=== PATIENT | male | born 1945 | race Caucasian/White ===

== ENCOUNTER 2017-09-20 07:47 | Inpatient (IN) ==
[~2017-09-20 07:47] MED LIST: CLINDAMYCIN INJ 50 ML IV ONE; CLINDAMYCIN INJ 600 MG in PREMIX 1 EACH IV ONE
[2017-09-20 08:22] LABS: Basophils % 0.4 % (0.0-0.8); Eosinophils # 0.2 10*3/uL (0.0-0.87); Eosinophils % 2.9 % (0.00-10.9); Hematocrit 25.5 VOL% (42.0-52.0); Immature Granulocytes % 0.5 %; Immature Granulocytes Absolute 0.03 #; Lymphocytes # 0.6 10*3/uL (1.4-4.0); Mean Corpuscular HGB Conc 31.4 GM/DL (32-36); Mean Corpuscular Hemoglobin 40 PG (27-34); Mean Corpuscular Volume 126.2 FL (87-102); Mean Platelet Volume 11.1 FL (9.6-12.0); Monocytes # 0.4 10*3/uL (0.11-0.8); Monocytes % 6.5 % (1.7-12.7); NRBC # 0.02 10*3/uL; Neutrophils # 4.4 10*3/uL (1.4-7.4); Neutrophils % 79.7 % (38.7-73.9); Platelet Count 148 T/CUMM (130-400); Red Blood Count 2.02 MC/CUMM (3.8-5.5); Red Cell Distribution Width 17.5 % (9.3-17.3); White Blood Count 5.5 T/CUMM (4-12)
[2017-09-20 08:31] LABS: PT Patient Result 10.6 SECS; Partial Thromboplastin Time 24.3 SECS (0-40)
[2017-09-20 08:41] LABS: Macrocytosis 1+; Ovalocytes Few; Platelet Estimate Adequate
[2017-09-20 08:43] LABS: Hypochromasia 1+
[2017-09-20 09:00] LABS: Albumin 3.4 G/DL (3.4-5.0); Bilirubin,Total 1.5 MG/DL (0.2-1.0); Calcium 8.4 MG/DL (8.5-10.1); Osmolality,Calculated 282.1 MOS/KG (273-304); Potassium 4.7 MMOL/L (3.5-5.1); Total Protein 6.1 G/DL (6.4-8.3)
[2017-09-20] MEDS ORDERED: LACTATED RINGERS 1,000 ML IV SCH (09:30)
[2017-09-20] MEDS ORDERED: BUPIVACAINE 0.25% 50 ML VIAL ONE (11:54)
[2017-09-20] MEDS ORDERED: PYRIDOSTIGMINE 60 MG TABLET PO ONE (12:00)
[2017-09-20] MEDS ORDERED: BUPIVACAINE 0.5% 50 ML VIAL ONE (12:29)
[2017-09-20] MEDS ORDERED: BENZOIN COMPOUND TINCTURE 58 ML BOTTLE TOP ONE (13:35)
[2017-09-20] MEDS ORDERED: ONDANSETRON 4 MG/2 ML VIAL IV PRN (14:12)
[2017-09-20] MEDS ORDERED: GLUCAGON 1 MG VIAL IM PRN (14:12)
[2017-09-20] MEDS ORDERED: DEXTROSE 50% 25 GM/50 ML VIAL IV PRN (14:12)
[2017-09-20] MEDS ORDERED: PROPOFOL 200 MG/20 ML VIAL IV ONE (14:23)
[2017-09-20] MEDS ORDERED: MIDAZOLAM 2 MG/2 ML VIAL ONE (14:23)
[2017-09-20] MEDS: INSULIN REGULAR 100 UNIT/ML SUBCUT SCH ×2 (18:17→21:11)
[2017-09-20] MEDS: PYRIDOSTIGMINE 60 MG TABLET PO SCH ×2 (18:45→21:11)
[2017-09-20] MEDS: oxyCODONE/ACETAMINOPHEN 5-325 MG TABLET PO PRN (18:48)
[2017-09-20] MEDS ORDERED: POTASSIUM CHLORIDE 8 MEQ CAPSULE PO SCH (21:00)
[2017-09-20] MEDS: GABAPENTIN 400 MG CAPSULE PO SCH (21:10)
[2017-09-20] MEDS: CARVEDILOL 6.25 MG TABLET PO SCH (21:10)
[2017-09-20] MEDS: hydrALAZINE 25 MG TABLET PO SCH (21:10)
[2017-09-20] MEDS: azaTHIOprine 50 MG TABLET PO SCH (21:10)
[2017-09-20] MEDS: POTASSIUM CHLORIDE 10 MEQ TABLET PO SCH (21:11)
[2017-09-20] MEDS: CLINDAMYCIN INJ 900 MG in PREMIX 1 EACH IV SCH (21:11)
[2017-09-20] MEDS: CIPROFLOXACIN 500 MG TABLET PO SCH (21:11)
[2017-09-20] MEDS: GLYCOPYRROLATE 1 MG TABLET PO SCH (21:12)
[2017-09-21] MEDS: CLINDAMYCIN INJ 900 MG in PREMIX 1 EACH IV SCH (04:38)
[2017-09-21 04:55] LABS: Albumin 2.8 G/DL (3.4-5.0); Bilirubin,Total 2.5 MG/DL (0.2-1.0); Calcium 7.9 MG/DL (8.5-10.1); Osmolality,Calculated 283.8 MOS/KG (273-304); Total Protein 5.1 G/DL (6.4-8.3)
[2017-09-21 07:07] LABS: Basophils % 0.4 % (0.0-0.8); Eosinophils # 0.2 10*3/uL (0.0-0.87); Eosinophils % 3.8 % (0.00-10.9); Hematocrit 21.7 VOL% (42.0-52.0); Immature Granulocytes % 0.7 %; Immature Granulocytes Absolute 0.03 #; Lymphocytes # 0.4 10*3/uL (1.4-4.0); Lymphocytes % 9.5 % (21.2-54.2); Mean Corpuscular HGB Conc 32.7 GM/DL (32-36); Mean Corpuscular Hemoglobin 41 PG (27-34); Mean Platelet Volume 11.5 FL (9.6-12.0); Monocytes # 0.3 10*3/uL (0.11-0.8); Monocytes % 6.4 % (1.7-12.7); Neutrophils # 3.6 10*3/uL (1.4-7.4); Neutrophils % 79.2 % (38.7-73.9); Platelet Count 127 T/CUMM (130-400); Red Blood Count 1.75 MC/CUMM (3.8-5.5); Red Cell Distribution Width 17.5 % (9.3-17.3); White Blood Count 4.5 T/CUMM (4-12)
[2017-09-21 07:09] LABS: Hemoglobin 7.1 GM/DL (14.0-18.0)
[2017-09-21 07:25] LABS: Elliptocytes Few; Giant Platelets Few; Hypochromasia 1+; Platelet Estimate Normal
[2017-09-21 07:26] LABS: Macrocytosis Slight
[2017-09-21] MEDS ORDERED: SODIUM CHLORIDE 0.9% 1,000 ML IV PRN (08:02)
[2017-09-21] MEDS: SODIUM CHLORIDE 0.9% 1,000 ML IV SCH (08:08)
[2017-09-21 08:10] LABS: INR 1.1; PT Patient Result 11.1 SECS; Partial Thromboplastin Time 25.1 SECS (0-40)
[2017-09-21 08:30] LABS: % Iron Saturation 19.6 % (18-50)
[2017-09-21] MEDS ORDERED: ZINC PO SCH (09:00)
[2017-09-21] MEDS ORDERED: COPPER PO SCH (09:00)
[2017-09-21] MEDS ORDERED: VIT E PO SCH (09:00)
[2017-09-21] MEDS ORDERED: VIT C PO SCH (09:00)
[2017-09-21] MEDS ORDERED: VIT A PO SCH (09:00)
[2017-09-21] MEDS ORDERED: ALBUTEROL/IPRATROPIUM 3 ML NEB RESP TX STA (09:15)
[2017-09-21] MEDS: INSULIN REGULAR 100 UNIT/ML SUBCUT SCH ×3 (09:48→21:50)
[2017-09-21] MEDS: MULTIVITAMIN (OCUVITE) TABLET PO SCH (10:33)
[2017-09-21] MEDS: hydrALAZINE 25 MG TABLET PO SCH ×2 (10:33→21:50)
[2017-09-21] MEDS: PANTOPRAZOLE 40 MG TABLET PO SCH (10:33)
[2017-09-21] MEDS: CIPROFLOXACIN 500 MG TABLET PO SCH ×2 (10:34→21:50)
[2017-09-21] MEDS: POTASSIUM CHLORIDE 10 MEQ TABLET PO SCH ×2 (10:34→21:50)
[2017-09-21] MEDS: ATORVASTATIN 10 MG TABLET PO SCH (10:34)
[2017-09-21] MEDS: PYRIDOSTIGMINE 60 MG TABLET PO SCH ×5 (10:35→21:50)
[2017-09-21] MEDS: GLYCOPYRROLATE 1 MG TABLET PO SCH ×2 (10:35→21:51)
[2017-09-21] MEDS: azaTHIOprine 50 MG TABLET PO SCH ×2 (10:35→21:50)
[2017-09-21] MEDS: predniSONE 5 MG TABLET PO SCH (10:35)
[2017-09-21] MEDS: CARVEDILOL 6.25 MG TABLET PO SCH ×2 (10:35→21:50)
[2017-09-21] MEDS: GABAPENTIN 400 MG CAPSULE PO SCH ×2 (10:36→21:50)
[2017-09-21] MEDS: BUMETANIDE 1 MG TABLET PO SCH (10:36)
[2017-09-21] MEDS: oxyCODONE/ACETAMINOPHEN 5-325 MG TABLET PO PRN ×2 (12:45→21:56)
[2017-09-21] MEDS: ALBUTEROL/IPRATROPIUM 3 ML NEB RESP TX SCH ×2 (14:25→21:08)
[2017-09-21] MEDS: HYDROmorphone 2 MG/1 ML VIAL IV PRN (17:36)
[2017-09-22 00:28] LABS: Hematocrit 24.8 VOL% (42.0-52.0); Hemoglobin 8.1 GM/DL (14.0-18.0)
[2017-09-22] MEDS: ALBUTEROL/IPRATROPIUM 3 ML NEB RESP TX SCH ×5 (01:27→20:42)
[2017-09-22 05:37] LABS: Basophils % 0.3 % (0.0-0.8); Eosinophils # 0.1 10*3/uL (0.0-0.87); Eosinophils % 2.6 % (0.00-10.9); Hematocrit 25.4 VOL% (42.0-52.0); Hemoglobin 8.1 GM/DL (14.0-18.0); Immature Granulocytes Absolute 0.04 #; Lymphocytes # 0.6 10*3/uL (1.4-4.0); Lymphocytes % 16.1 % (21.2-54.2); Mean Corpuscular HGB Conc 31.9 GM/DL (32-36); Mean Corpuscular Hemoglobin 37 PG (27-34); Mean Corpuscular Volume 116.5 FL (87-102); Mean Platelet Volume 11.5 FL (9.6-12.0); Monocytes # 0.2 10*3/uL (0.11-0.8); Monocytes % 5.7 % (1.7-12.7); Neutrophils # 2.9 10*3/uL (1.4-7.4); Neutrophils % 74.3 % (38.7-73.9); Platelet Count 107 T/CUMM (130-400); Red Blood Count 2.18 MC/CUMM (3.8-5.5); Red Cell Distribution Width 23.5 % (9.3-17.3); White Blood Count 3.8 T/CUMM (4-12)
[2017-09-22 06:04] LABS: Calcium 7.5 MG/DL (8.5-10.1); Magnesium 2.1 MG/DL (1.8-2.4); Osmolality,Calculated 285.7 MOS/KG (273-304); Potassium 3.8 MMOL/L (3.5-5.1)
[2017-09-22] MEDS: SODIUM CHLORIDE 0.9% 1,000 ML IV SCH (06:13)
[2017-09-22] MEDS: oxyCODONE/ACETAMINOPHEN 5-325 MG TABLET PO PRN ×2 (06:16→20:18)
[2017-09-22] MEDS: INSULIN REGULAR 100 UNIT/ML SUBCUT SCH ×4 (09:24→20:21)
[2017-09-22] MEDS: PYRIDOSTIGMINE 60 MG TABLET PO SCH ×4 (09:41→20:18)
[2017-09-22] MEDS: BUMETANIDE 1 MG TABLET PO SCH (09:41)
[2017-09-22] MEDS: CARVEDILOL 6.25 MG TABLET PO SCH ×2 (09:41→20:18)
[2017-09-22] MEDS: azaTHIOprine 50 MG TABLET PO SCH ×2 (09:41→20:18)
[2017-09-22] MEDS: CIPROFLOXACIN 500 MG TABLET PO SCH ×2 (09:42→20:18)
[2017-09-22] MEDS: GABAPENTIN 400 MG CAPSULE PO SCH ×2 (09:42→20:18)
[2017-09-22] MEDS: ATORVASTATIN 10 MG TABLET PO SCH (09:42)
[2017-09-22] MEDS: MULTIVITAMIN (OCUVITE) TABLET PO SCH (09:42)
[2017-09-22] MEDS: predniSONE 5 MG TABLET PO SCH (09:42)
[2017-09-22] MEDS: hydrALAZINE 25 MG TABLET PO SCH ×2 (09:42→20:18)
[2017-09-22] MEDS: PANTOPRAZOLE 40 MG TABLET PO SCH (09:42)
[2017-09-22] MEDS: POTASSIUM CHLORIDE 10 MEQ TABLET PO SCH ×2 (09:42→20:18)
[2017-09-22] MEDS: GLYCOPYRROLATE 1 MG TABLET PO SCH ×2 (09:42→20:18)
[2017-09-23] MEDS: HYDROmorphone 2 MG/1 ML VIAL IV PRN (01:54)
[2017-09-23] MEDS: ALBUTEROL/IPRATROPIUM 3 ML NEB RESP TX SCH ×2 (02:08→07:43)
[2017-09-23 05:13] LABS: Basophils % 0.3 % (0.0-0.8); Eosinophils # 0.2 10*3/uL (0.0-0.87); Eosinophils % 4.3 % (0.00-10.9); Hematocrit 25.4 VOL% (42.0-52.0); Hemoglobin 8.5 GM/DL (14.0-18.0); Immature Granulocytes % 0.9 %; Immature Granulocytes Absolute 0.03 #; Lymphocytes # 0.6 10*3/uL (1.4-4.0); Lymphocytes % 16.3 % (21.2-54.2); Mean Corpuscular HGB Conc 33.5 GM/DL (32-36); Mean Corpuscular Hemoglobin 38 PG (27-34); Mean Corpuscular Volume 113.4 FL (87-102); Mean Platelet Volume 11.5 FL (9.6-12.0); Monocytes # 0.2 10*3/uL (0.11-0.8); Monocytes % 5.1 % (1.7-12.7); NRBC # 0.02 10*3/uL; Neutrophils # 2.6 10*3/uL (1.4-7.4); Neutrophils % 73.1 % (38.7-73.9); Platelet Count 115 T/CUMM (130-400); Red Blood Count 2.24 MC/CUMM (3.8-5.5); Red Cell Distribution Width 22.3 % (9.3-17.3); White Blood Count 3.5 T/CUMM (4-12)
[2017-09-23 05:30] LABS: Calcium 7.7 MG/DL (8.5-10.1); Osmolality,Calculated 280.1 MOS/KG (273-304); Potassium 3.9 MMOL/L (3.5-5.1)
[2017-09-23 05:51] LABS: Macrocytosis 1+
[2017-09-23 05:52] LABS: Ovalocytes Few; Platelet Estimate Decreased
[2017-09-23] MEDS: INSULIN REGULAR 100 UNIT/ML SUBCUT SCH ×2 (08:12→11:06)
[2017-09-23] MEDS: MULTIVITAMIN (OCUVITE) TABLET PO SCH (08:42)
[2017-09-23] MEDS: PANTOPRAZOLE 40 MG TABLET PO SCH (08:42)
[2017-09-23] MEDS: ATORVASTATIN 10 MG TABLET PO SCH (08:42)
[2017-09-23] MEDS: hydrALAZINE 25 MG TABLET PO SCH (08:42)
[2017-09-23] MEDS: predniSONE 5 MG TABLET PO SCH (08:42)
[2017-09-23] MEDS: BUMETANIDE 1 MG TABLET PO SCH (08:42)
[2017-09-23] MEDS: GLYCOPYRROLATE 1 MG TABLET PO SCH (08:42)
[2017-09-23] MEDS: GABAPENTIN 400 MG CAPSULE PO SCH (08:42)
[2017-09-23] MEDS: azaTHIOprine 50 MG TABLET PO SCH (08:42)
[2017-09-23] MEDS: CARVEDILOL 6.25 MG TABLET PO SCH (08:43)
[2017-09-23] MEDS: PYRIDOSTIGMINE 60 MG TABLET PO SCH (08:43)
[2017-09-23] MEDS: CIPROFLOXACIN 500 MG TABLET PO SCH (08:43)
[2017-09-23] MEDS: POTASSIUM CHLORIDE 10 MEQ TABLET PO SCH (08:43)
[2017-09-23] MEDS ORDERED: CYANOCOBALAMIN 1000 MCG/1 ML VIAL IM SCH (09:00)
[2017-09-23] MEDS: oxyCODONE/ACETAMINOPHEN 5-325 MG TABLET PO PRN (09:11)
[2017-09-23 11:33] VITALS: BP 129/63
== END 2017-09-23 12:26 | disposition home health service (06) | DRG 570 ==
LOC: N.OR 07:47 → N.TELEN 07:47 → N.SDSINP 07:53 → N.TELEN 15:43
PROVIDERS: ADMIT Specialist; ATTEND Specialist

== ENCOUNTER 2017-09-28 14:07 | Inpatient (IN) ==
[2017-09-28] MEDS ORDERED: methylPREDNISolone SOD SUC 125 MG/2 ML VIAL IV STA (14:23)
[2017-09-28] MEDS ORDERED: PROPOFOL 1,000 MG/100 ML BOTTLE IV ONE (14:35)
[2017-09-28 14:36] LABS: Basophils % 0.3 % (0.0-0.8); Eosinophils % 0.2 % (0.00-10.9); Hemoglobin 11.4 GM/DL (14.0-18.0); Immature Granulocytes % 1.3 %; Immature Granulocytes Absolute 0.08 #; Lymphocytes # 0.6 10*3/uL (1.4-4.0); Lymphocytes % 9.6 % (21.2-54.2); Mean Corpuscular HGB Conc 31.7 GM/DL (32-36); Mean Corpuscular Hemoglobin 37 PG (27-34); Mean Platelet Volume 10.9 FL (9.6-12.0); Monocytes # 0.5 10*3/uL (0.11-0.8); Monocytes % 7.9 % (1.7-12.7); NRBC # 0.02 10*3/uL; Neutrophils % 80.7 % (38.7-73.9); Platelet Count 225 T/CUMM (130-400); Red Blood Count 3.05 MC/CUMM (3.8-5.5); Red Cell Distribution Width 20.8 % (9.3-17.3); White Blood Count 6.2 T/CUMM (4-12)
[2017-09-28] MEDS ORDERED: ETOMIDATE 20 MG/10 ML VIAL IV ONE (14:39)
[2017-09-28] MEDS ORDERED: ROCURONIUM 100 MG/10 ML VIAL IV ONE (14:40)
[2017-09-28] MEDS ORDERED: SODIUM CHLORIDE 0.9% 100 ML IV ONE (14:44)
[2017-09-28] MEDS ORDERED: DILTIAZEM 100 MG VIAL.ADD IV ONE (14:44)
[2017-09-28] MEDS: DILTIAZEM INJ 100 MG in SODIUM CHLORIDE 0.9% 100 ML IV SCH (15:00)
[2017-09-28] MEDS ORDERED: methylPREDNISolone SOD SUC 125 MG/2 ML VIAL ONE (15:01)
[2017-09-28 15:03] LABS: Albumin 3.7 G/DL (3.4-5.0); Bilirubin,Total 0.9 MG/DL (0.2-1.0); Calcium 8.5 MG/DL (8.5-10.1); Osmolality,Calculated 282.5 MOS/KG (273-304); Potassium 4.5 MMOL/L (3.5-5.1); Total Protein 6.7 G/DL (6.4-8.3); Troponin I Only 0.044 NG/ML (0.00-0.045)
[2017-09-28 15:10] LABS: ABG Base Excess -1.8 MMOL/L (-2.5-2.5); ABG Oxygen Saturation 99.6 % (95-100); ABG PCO2 57.6 MM HG (35-48); ABG PH 7.272 (7.35-7.45); ABG TCO2 27.7 MMOL/L (23-27)
[2017-09-28 15:12] LABS: ABG PO2 512.7 MM HG (80-95)
[2017-09-28 15:22] LABS: Lactic Acid 3.8 MMOL/L (0.4-2.0)
[2017-09-28 15:30] LABS: Apearance,Urine Slightly Hazy (Clear); Bacteria,Urine Occasional /HPF (Few); Bilirubin,Urine Negative (Negative); Blood, Urine Negative (Negative); Glucose,Urine (UA) 50 mg/dL (Negative); Hyaline Casts,Urine 4 /LPF (0-3); Ketones,Urine Negative (Negative); Mucus,Urine Few /LPF (Occasional); Nitrite,Urine Negative (Negative); Protein,Urine 100 MG/DL; RBC,Urine 5 /HPF (0-4); Squamous Epithelial Cell,Urine Occasional /HPF (0-10); Urine Color Yellow (Yellow); Urine Specific Gravity 1.013 (1.001-1.035); Urine Urobilinogen < 2.0 EU/DL (0.2-1.0); WBC,Urine 15 /HPF (0-6)
[2017-09-28] MEDS ORDERED: PROPOFOL 1,000 MG/100 ML BOTTLE IV SCH (15:30)
[2017-09-28] MEDS ORDERED: ETOMIDATE 20 MG/10 ML VIAL IV STA (15:37)
[2017-09-28] MEDS ORDERED: ROCURONIUM 100 MG/10 ML VIAL IV STA (15:37)
[2017-09-28 15:40] LABS: INR 1.2; PT Patient Result 12.5 SECS; Partial Thromboplastin Time 25.9 SECS (0-40)
[2017-09-28] MEDS ORDERED: ONDANSETRON 4 MG/2 ML VIAL IV PRN (15:43)
[2017-09-28] MEDS ORDERED: DILTIAZEM 50 MG/10 ML VIAL IV STA (15:43)
[2017-09-28] MEDS ORDERED: ACETAMINOPHEN 325 MG TABLET PO PRN (15:43)
[2017-09-28] MEDS ORDERED: ALBUTEROL/IPRATROPIUM 3 ML NEB RESP TX PRN (16:34)
[2017-09-28] MEDS ORDERED: ALBUTEROL 2.5 MG/3 ML NEB RESP TX PRN (16:34)
[2017-09-28] MEDS ORDERED: SODIUM CHLORIDE 0.9% 1,000 ML IV ONE (16:39)
[2017-09-28] MEDS ORDERED: MULTIVITAMIN (CENTRUM) TABLET PO PRN (16:44)
[2017-09-28] MEDS ORDERED: GLUCAGON 1 MG VIAL IM PRN (16:53)
[2017-09-28] MEDS ORDERED: DEXTROSE 50% 25 GM/50 ML VIAL IV PRN (16:53)
[2017-09-28] MEDS ORDERED: ENOXAPARIN 40 MG/0.4 ML SYRINGE SUBCUT SCH (17:00)
[2017-09-28] MEDS ORDERED: SODIUM HYPOCHLORITE 0.25% IRRIG 473 ML BOTTLE TOP SCH (17:00)
[2017-09-28] MEDS ORDERED: CHLORHEXIDINE 4% SOLN 118 ML BOTTLE TOP SCH (17:00)
[2017-09-28] MEDS: methylPREDNISolone SOD SUC 40 MG/1 ML VIAL IV SCH (17:17)
[2017-09-28 17:47] LABS: ABG Base Excess 1.3 MMOL/L (-2.5-2.5); ABG HCO3 25.6 MMOL/L (20-26); ABG PCO2 60.5 MM HG (35-48); ABG TCO2 26.9 MMOL/L (23-27)
[2017-09-28] MEDS: SODIUM CHLORIDE 0.9% 1,000 ML IV SCH (18:15)
[2017-09-28] MEDS: PROPOFOL 1,000 MG/100 ML BOTTLE IV SCH ×2 (18:15→22:49)
[2017-09-28] MEDS: PIPERACILLIN/TAZOBACTAM 3,375 MG in SODIUM CHLORIDE 0.9% 100 ML IV SCH (18:33)
[2017-09-28] MEDS: PYRIDOSTIGMINE 60 MG TABLET PO SCH ×2 (18:44→20:40)
[2017-09-28] MEDS: azaTHIOprine 50 MG TABLET PO SCH (20:39)
[2017-09-28] MEDS: CARVEDILOL 6.25 MG TABLET PO SCH (20:39)
[2017-09-28] MEDS: hydrALAZINE 25 MG TABLET PO SCH (20:39)
[2017-09-28] MEDS: DOCUSATE SODIUM 100 MG CAPSULE PO SCH (20:39)
[2017-09-28] MEDS: ATORVASTATIN 10 MG TABLET PO SCH (20:40)
[2017-09-28] MEDS: POTASSIUM CHLORIDE 8 MEQ CAPSULE PO SCH (20:40)
[2017-09-28] MEDS: GABAPENTIN 400 MG CAPSULE PO SCH (20:40)
[2017-09-28] MEDS: GLYCOPYRROLATE 1 MG TABLET PO SCH (20:44)
[2017-09-28] MEDS: oxyCODONE/ACETAMINOPHEN 5-325 MG TABLET PO PRN (20:45)
[2017-09-28] MEDS: INSULIN LISPRO 100 UNIT/ML SUBCUT SCH (21:10)
[2017-09-28] MEDS: VANCOMYCIN INJ 1,750 MG in SODIUM CHLORIDE 0.9% 500 ML IV SCH (21:27)
[2017-09-29] MEDS: methylPREDNISolone SOD SUC 40 MG/1 ML VIAL IV SCH ×3 (03:37→16:29)
[2017-09-29] MEDS: PIPERACILLIN/TAZOBACTAM 3,375 MG in SODIUM CHLORIDE 0.9% 100 ML IV SCH ×3 (03:37→16:52)
[2017-09-29] MEDS: SODIUM CHLORIDE 0.9% 1,000 ML IV SCH ×6 (03:38→21:03)
[2017-09-29 03:40] LABS: Allen Test Positive; Pt O2 Delivery Device Ventilator
[2017-09-29 03:41] LABS: ABG Base Excess 1.8 MMOL/L (-2.5-2.5); ABG HCO3 26.1 MMOL/L (20-26); ABG Oxygen Saturation 98.8 % (95-100); ABG PCO2 41.5 MM HG (35-48); ABG PH 7.414 (7.35-7.45); ABG TCO2 24.6 MMOL/L (23-27)
[2017-09-29] MEDS: PROPOFOL 1,000 MG/100 ML BOTTLE IV SCH ×2 (04:08→16:06)
[2017-09-29 04:41] LABS: Hematocrit 25.3 VOL% (42.0-52.0); Hemoglobin 8.3 GM/DL (14.0-18.0); Immature Granulocytes % 1.6 %; Immature Granulocytes Absolute 0.05 #; Lymphocytes # 0.2 10*3/uL (1.4-4.0); Lymphocytes % 5.6 % (21.2-54.2); Mean Corpuscular HGB Conc 32.8 GM/DL (32-36); Mean Corpuscular Hemoglobin 38 PG (27-34); Mean Corpuscular Volume 116.1 FL (87-102); Mean Platelet Volume 11.6 FL (9.6-12.0); Monocytes # 0.1 10*3/uL (0.11-0.8); Monocytes % 3.6 % (1.7-12.7); Neutrophils # 2.7 10*3/uL (1.4-7.4); Neutrophils % 89.2 % (38.7-73.9); Platelet Count 134 T/CUMM (130-400); Red Blood Count 2.18 MC/CUMM (3.8-5.5); Red Cell Distribution Width 20.9 % (9.3-17.3); White Blood Count 3.1 T/CUMM (4-12)
[2017-09-29 05:09] LABS: Giant Platelets Few; Hypochromasia 1+; Ovalocytes Slight; Platelet Estimate Normal
[2017-09-29 05:12] LABS: Albumin 2.8 G/DL (3.4-5.0); Bilirubin,Total 1.7 MG/DL (0.2-1.0); Calcium 7.6 MG/DL (8.5-10.1); Potassium 4.4 MMOL/L (3.5-5.1)
[2017-09-29] MEDS: INSULIN LISPRO 100 UNIT/ML SUBCUT SCH ×4 (07:33→18:23)
[2017-09-29] MEDS: hydrALAZINE 25 MG TABLET PO SCH ×2 (08:05→20:07)
[2017-09-29] MEDS: DOCUSATE SODIUM 100 MG CAPSULE PO SCH ×2 (08:06→20:07)
[2017-09-29] MEDS: CARVEDILOL 6.25 MG TABLET PO SCH ×2 (08:07→20:07)
[2017-09-29] MEDS: MULTIVITAMIN (OCUVITE) TABLET PO SCH (08:44)
[2017-09-29] MEDS: GLYCOPYRROLATE 1 MG TABLET PO SCH ×2 (08:44→20:07)
[2017-09-29] MEDS: RIVAROXABAN 20 MG TABLET PO SCH (08:44)
[2017-09-29] MEDS: azaTHIOprine 50 MG TABLET PO SCH ×2 (08:44→20:07)
[2017-09-29] MEDS: GABAPENTIN 400 MG CAPSULE PO SCH ×2 (08:44→20:07)
[2017-09-29] MEDS: POTASSIUM CHLORIDE 8 MEQ CAPSULE PO SCH ×2 (08:44→20:07)
[2017-09-29] MEDS: PANTOPRAZOLE 40 MG VIAL IV SCH (08:45)
[2017-09-29] MEDS: oxyCODONE/ACETAMINOPHEN 5-325 MG TABLET PO PRN ×3 (08:59→22:16)
[2017-09-29] MEDS ORDERED: PANTOPRAZOLE 40 MG TABLET PO SCH (09:00)
[2017-09-29] MEDS ORDERED: LIDOCAINE 1% 20 ML VIAL MISC INJ ONE (09:03)
[2017-09-29] MEDS ORDERED: MIDAZOLAM 2 MG/2 ML VIAL IV ONE (09:03)
[2017-09-29] MEDS ORDERED: LIDOCAINE 2% 20 ML VIAL RESP TX ONE (09:03)
[2017-09-29] MEDS: PYRIDOSTIGMINE 60 MG TABLET PO SCH ×5 (09:22→20:07)
[2017-09-29] MEDS: DEXMEDETOMIDINE 200 MCG in SODIUM CHLORIDE 0.9% 48 ML IV SCH ×2 (09:47→19:40)
[2017-09-29] MEDS: VANCOMYCIN INJ 1,750 MG in SODIUM CHLORIDE 0.9% 500 ML IV SCH ×2 (10:33→21:22)
[2017-09-29] MEDS: ACETIC ACID 0.25% IRRIGATION 1,000 ML BOTTLE IRRIG SCH ×2 (12:59→20:08)
[2017-09-29] MEDS: DILTIAZEM INJ 100 MG in SODIUM CHLORIDE 0.9% 100 ML IV SCH (15:00)
[2017-09-29] MEDS ORDERED: IMMUNE GLOBULIN 10% 40 GM, IMMUNE GLOBULIN 10% 5 GM in PREMIX 1 EACH IV ONE (17:39)
[2017-09-29] MEDS: ATORVASTATIN 10 MG TABLET PO SCH (20:07)
[2017-09-30] MEDS: methylPREDNISolone SOD SUC 40 MG/1 ML VIAL IV SCH ×3 (00:35→17:40)
[2017-09-30] MEDS: INSULIN LISPRO 100 UNIT/ML SUBCUT SCH ×4 (00:36→17:55)
[2017-09-30] MEDS: PIPERACILLIN/TAZOBACTAM 3,375 MG in SODIUM CHLORIDE 0.9% 100 ML IV SCH ×3 (00:36→17:40)
[2017-09-30] MEDS: SODIUM CHLORIDE 0.9% 1,000 ML IV SCH ×3 (01:33→08:39)
[2017-09-30] MEDS: DEXMEDETOMIDINE 200 MCG in SODIUM CHLORIDE 0.9% 48 ML IV SCH ×5 (02:22→23:21)
[2017-09-30 03:34] LABS: ABG Base Excess -1.6 MMOL/L (-2.5-2.5); ABG HCO3 23.8 MMOL/L (20-26); ABG Oxygen Saturation 97.6 % (95-100); ABG PCO2 43.2 MM HG (35-48); ABG PH 7.359 (7.35-7.45); ABG PO2 107.7 MM HG (80-95); ABG TCO2 25.1 MMOL/L (23-27); Allen Test Positive; Pt O2 Delivery Device Ventilator
[2017-09-30 05:12] LABS: Basophils % 0.3 % (0.0-0.8); Hematocrit 26.7 VOL% (42.0-52.0); Hemoglobin 8.6 GM/DL (14.0-18.0); Immature Granulocytes % 1.1 %; Immature Granulocytes Absolute 0.04 #; Lymphocytes # 0.2 10*3/uL (1.4-4.0); Lymphocytes % 4.5 % (21.2-54.2); Mean Corpuscular HGB Conc 32.2 GM/DL (32-36); Mean Corpuscular Hemoglobin 38 PG (27-34); Mean Corpuscular Volume 119.2 FL (87-102); Mean Platelet Volume 11.9 FL (9.6-12.0); Monocytes # 0.2 10*3/uL (0.11-0.8); Monocytes % 6.1 % (1.7-12.7); NRBC # 0.04 10*3/uL; Neutrophils # 3.2 10*3/uL (1.4-7.4); Platelet Count 134 T/CUMM (130-400); Red Blood Count 2.24 MC/CUMM (3.8-5.5); Red Cell Distribution Width 20.4 % (9.3-17.3); White Blood Count 3.6 T/CUMM (4-12)
[2017-09-30 05:41] LABS: Calcium 7.2 MG/DL (8.5-10.1); Magnesium 2.2 MG/DL (1.8-2.4); Osmolality,Calculated 287.4 MOS/KG (273-304); Potassium 4.5 MMOL/L (3.5-5.1)
[2017-09-30 05:42] LABS: Magnesium 2.2 MG/DL (1.8-2.4); Prealbumin 19.9 MG/DL (20-40)
[2017-09-30 05:52] LABS: Band Neutrophils 7 % (0-10); Hypochromasia 1+; Lymphocytes 1 % (20-55); Metamyelocytes 1 %; Segmented Neutrophils 86 % (50-85); Total Cells Counted 100
[2017-09-30 05:53] LABS: Macrocytosis 1+; Ovalocytes Few; Platelet Estimate Adequate; Tear Drop Cells Slight
[2017-09-30] MEDS: PROPOFOL 1,000 MG/100 ML BOTTLE IV SCH ×2 (08:40→16:11)
[2017-09-30] MEDS ORDERED: ASPIRIN EC 81 MG TABLET PO SCH (09:00)
[2017-09-30] MEDS: GLYCOPYRROLATE 1 MG TABLET PO SCH ×2 (09:05→20:05)
[2017-09-30] MEDS: MULTIVITAMIN (OCUVITE) TABLET PO SCH (09:05)
[2017-09-30] MEDS: POTASSIUM CHLORIDE 8 MEQ CAPSULE PO SCH ×2 (09:05→20:06)
[2017-09-30] MEDS: RIVAROXABAN 20 MG TABLET PO SCH (09:05)
[2017-09-30] MEDS: ACETIC ACID 0.25% IRRIGATION 1,000 ML BOTTLE IRRIG SCH ×2 (09:06→20:07)
[2017-09-30] MEDS: ASCORBIC ACID 500 MG TABLET PO SCH ×2 (09:06→20:08)
[2017-09-30] MEDS: PYRIDOSTIGMINE 60 MG TABLET PO SCH ×4 (09:06→20:06)
[2017-09-30] MEDS: ISOSORBIDE MONONITRATE 30 MG TABLET PO SCH (09:06)
[2017-09-30] MEDS: DOCUSATE SODIUM 100 MG CAPSULE PO SCH ×2 (09:06→20:06)
[2017-09-30] MEDS: GABAPENTIN 400 MG CAPSULE PO SCH ×2 (09:06→20:06)
[2017-09-30] MEDS: azaTHIOprine 50 MG TABLET PO SCH ×3 (09:06→21:14)
[2017-09-30] MEDS: LISINOPRIL 5 MG TABLET PO SCH (09:07)
[2017-09-30] MEDS: PANTOPRAZOLE 40 MG VIAL IV SCH (09:07)
[2017-09-30] MEDS: VANCOMYCIN INJ 1,750 MG in SODIUM CHLORIDE 0.9% 500 ML IV SCH (10:17)
[2017-09-30] MEDS: ATORVASTATIN 10 MG TABLET PO SCH (20:06)
[2017-10-01] MEDS: oxyCODONE/ACETAMINOPHEN 5-325 MG TABLET PO PRN ×2 (00:30→18:30)
[2017-10-01] MEDS: INSULIN LISPRO 100 UNIT/ML SUBCUT SCH ×5 (00:31→23:52)
[2017-10-01] MEDS: methylPREDNISolone SOD SUC 40 MG/1 ML VIAL IV SCH ×3 (00:31→17:30)
[2017-10-01] MEDS: PIPERACILLIN/TAZOBACTAM 3,375 MG in SODIUM CHLORIDE 0.9% 100 ML IV SCH ×3 (00:31→17:30)
[2017-10-01] MEDS: DEXMEDETOMIDINE 200 MCG in SODIUM CHLORIDE 0.9% 48 ML IV SCH ×6 (04:00→21:53)
[2017-10-01 04:03] LABS: ABG Base Excess -1.3 MMOL/L (-2.5-2.5); ABG HCO3 23.3 MMOL/L (20-26); ABG Oxygen Saturation 97.5 % (95-100); ABG PCO2 45.4 MM HG (35-48); ABG PH 7.343 (7.35-7.45); ABG PO2 97.8 MM HG (80-95); ABG TCO2 22.3 MMOL/L (23-27)
[2017-10-01] MEDS: VANCOMYCIN INJ 1,750 MG in SODIUM CHLORIDE 0.9% 500 ML IV SCH ×2 (04:08→22:24)
[2017-10-01 06:09] LABS: Hematocrit 27.3 VOL% (42.0-52.0); Hemoglobin 8.6 GM/DL (14.0-18.0); Immature Granulocytes % 1.4 %; Immature Granulocytes Absolute 0.04 #; Lymphocytes # 0.1 10*3/uL (1.4-4.0); Mean Corpuscular HGB Conc 31.5 GM/DL (32-36); Mean Corpuscular Hemoglobin 37 PG (27-34); Mean Corpuscular Volume 118.7 FL (87-102); Mean Platelet Volume 11.8 FL (9.6-12.0); Monocytes # 0.2 10*3/uL (0.11-0.8); Monocytes % 6.4 % (1.7-12.7); NRBC # 0.02 10*3/uL; Neutrophils # 2.5 10*3/uL (1.4-7.4); Neutrophils % 87.2 % (38.7-73.9); Platelet Count 133 T/CUMM (130-400); Red Cell Distribution Width 20.3 % (9.3-17.3); White Blood Count 2.8 T/CUMM (4-12)
[2017-10-01 06:39] LABS: Hypochromasia 2+; Lymphocytes 5 % (20-55); Macrocytosis 1+; Segmented Neutrophils 92 % (50-85); Target Cells Slight; Total Cells Counted 100
[2017-10-01 06:40] LABS: Platelet Estimate Decreased
[2017-10-01 06:46] LABS: Calcium 7.3 MG/DL (8.5-10.1); Magnesium 2.5 MG/DL (1.8-2.4); Osmolality,Calculated 287.4 MOS/KG (273-304); Potassium 4.7 MMOL/L (3.5-5.1)
[2017-10-01] MEDS: GLYCOPYRROLATE 1 MG TABLET PO SCH ×2 (08:09→21:46)
[2017-10-01] MEDS: MULTIVITAMIN (OCUVITE) TABLET PO SCH (08:09)
[2017-10-01] MEDS: POTASSIUM CHLORIDE 8 MEQ CAPSULE PO SCH ×2 (08:10→21:45)
[2017-10-01] MEDS: ASCORBIC ACID 500 MG TABLET PO SCH ×2 (08:10→21:45)
[2017-10-01] MEDS: azaTHIOprine 50 MG TABLET PO SCH ×2 (08:10→21:45)
[2017-10-01] MEDS: LISINOPRIL 5 MG TABLET PO SCH (08:10)
[2017-10-01] MEDS: RIVAROXABAN 20 MG TABLET PO SCH (08:11)
[2017-10-01] MEDS: PYRIDOSTIGMINE 60 MG TABLET PO SCH ×4 (08:11→21:45)
[2017-10-01] MEDS: GABAPENTIN 400 MG CAPSULE PO SCH ×2 (08:11→21:45)
[2017-10-01] MEDS: ISOSORBIDE MONONITRATE 30 MG TABLET PO SCH (08:12)
[2017-10-01] MEDS: PANTOPRAZOLE 40 MG VIAL IV SCH (08:12)
[2017-10-01] MEDS: CYANOCOBALAMIN 1000 MCG/1 ML VIAL IM SCH (08:19)
[2017-10-01] MEDS: DOCUSATE SODIUM 100 MG CAPSULE PO SCH (08:19)
[2017-10-01 08:39] LABS: ABG HCO3 22.6 MMOL/L (20-26); ABG PCO2 49.3 MM HG (35-48); ABG PH 7.308 (7.35-7.45); ABG PO2 60.7 MM HG (80-95); ABG TCO2 22.7 MMOL/L (23-27); Allen Test Positive; Pt O2 Delivery Device Ventilator
[2017-10-01] MEDS: ACETIC ACID 0.25% IRRIGATION 1,000 ML BOTTLE IRRIG SCH ×2 (11:18→21:50)
[2017-10-01] MEDS: ISOSORBIDE DINITRATE 20 MG TABLET PO SCH (21:44)
[2017-10-01] MEDS: ATORVASTATIN 10 MG TABLET PO SCH (21:45)
[2017-10-01] MEDS: DOCUSATE SODIUM 100 MG/10 ML UDCUP PO SCH (21:45)
[2017-10-02] MEDS: DEXMEDETOMIDINE 200 MCG in SODIUM CHLORIDE 0.9% 48 ML IV SCH ×7 (00:30→23:29)
[2017-10-02] MEDS: methylPREDNISolone SOD SUC 40 MG/1 ML VIAL IV SCH ×3 (02:10→17:16)
[2017-10-02] MEDS: PIPERACILLIN/TAZOBACTAM 3,375 MG in SODIUM CHLORIDE 0.9% 100 ML IV SCH ×3 (02:10→17:17)
[2017-10-02] MEDS: oxyCODONE/ACETAMINOPHEN 5-325 MG TABLET PO PRN ×2 (02:13→08:16)
[2017-10-02 02:54] LABS: ABG Base Excess -1.3 MMOL/L (-2.5-2.5); ABG HCO3 23.6 MMOL/L (20-26); ABG Oxygen Saturation 95.9 % (95-100); ABG PCO2 39.8 MM HG (35-48); ABG PO2 85.7 MM HG (80-95); ABG TCO2 24.8 MMOL/L (23-27); Allen Test Positive; Pt O2 Delivery Device Ventilator
[2017-10-02] MEDS: INSULIN LISPRO 100 UNIT/ML SUBCUT SCH ×3 (06:22→18:07)
[2017-10-02 06:36] LABS: Calcium 7.6 MG/DL (8.5-10.1); Magnesium 2.7 MG/DL (1.8-2.4); Osmolality,Calculated 288.4 MOS/KG (273-304)
[2017-10-02 07:17] LABS: Hematocrit 28.2 VOL% (42.0-52.0); Immature Granulocytes % 0.9 %; Immature Granulocytes Absolute 0.03 #; Lymphocytes # 0.2 10*3/uL (1.4-4.0); Mean Corpuscular HGB Conc 31.9 GM/DL (32-36); Mean Corpuscular Hemoglobin 38 PG (27-34); Mean Platelet Volume 11.9 FL (9.6-12.0); Monocytes # 0.2 10*3/uL (0.11-0.8); Monocytes % 5.7 % (1.7-12.7); NRBC # 0.03 10*3/uL; Neutrophils # 2.8 10*3/uL (1.4-7.4); Neutrophils % 88.4 % (38.7-73.9); Platelet Count 110 T/CUMM (130-400); Red Blood Count 2.37 MC/CUMM (3.8-5.5); Red Cell Distribution Width 20.1 % (9.3-17.3); White Blood Count 3.2 T/CUMM (4-12)
[2017-10-02 07:57] LABS: Band Neutrophils 2 % (0-10); Lymphocytes 6 % (20-55); Macrocytosis 1+; Nucleated Red Blood Cells 1 (0-5); Segmented Neutrophils 83 % (50-85); Total Cells Counted 100
[2017-10-02 07:58] LABS: Ovalocytes Few; Platelet Estimate Adequate; Tear Drop Cells Slight
[2017-10-02] MEDS: ACETIC ACID 0.25% IRRIGATION 1,000 ML BOTTLE IRRIG SCH (08:15)
[2017-10-02] MEDS: LISINOPRIL 5 MG TABLET PO SCH (08:16)
[2017-10-02] MEDS: risperiDONE 1 MG TABLET PO SCH ×2 (08:16→21:30)
[2017-10-02] MEDS: GLYCOPYRROLATE 1 MG TABLET PO SCH ×2 (08:16→21:30)
[2017-10-02] MEDS: azaTHIOprine 50 MG TABLET PO SCH ×2 (08:16→21:30)
[2017-10-02] MEDS: GABAPENTIN 400 MG CAPSULE PO SCH ×2 (08:16→21:30)
[2017-10-02] MEDS: MULTIVITAMIN (OCUVITE) TABLET PO SCH (08:16)
[2017-10-02] MEDS: ISOSORBIDE DINITRATE 20 MG TABLET PO SCH ×3 (08:16→21:30)
[2017-10-02] MEDS: PYRIDOSTIGMINE 60 MG TABLET PO SCH ×4 (08:16→21:30)
[2017-10-02] MEDS: DOCUSATE SODIUM 100 MG/10 ML UDCUP PO SCH ×2 (08:16→21:30)
[2017-10-02] MEDS: ASCORBIC ACID 500 MG TABLET PO SCH ×2 (08:16→21:31)
[2017-10-02] MEDS: POTASSIUM CHLORIDE 8 MEQ CAPSULE PO SCH (08:17)
[2017-10-02] MEDS: RIVAROXABAN 20 MG TABLET PO SCH (08:17)
[2017-10-02] MEDS: PANTOPRAZOLE 40 MG VIAL IV SCH (08:17)
[2017-10-02] MEDS ORDERED: SODIUM POLYSTYRENE SULFATE 15 GM/60 ML BOTTLE PO ONE (09:30)
[2017-10-02 10:04] LABS: Calcium 7.5 MG/DL (8.5-10.1); Osmolality,Calculated 291.3 MOS/KG (273-304); Potassium 5.1 MMOL/L (3.5-5.1)
[2017-10-02] MEDS: SKIN HEALING OINT (AQUAPHOR) 50 GM TUBE TOP PRN (15:09)
[2017-10-02] MEDS: VANCOMYCIN INJ 1,750 MG in SODIUM CHLORIDE 0.9% 500 ML IV SCH (17:17)
[2017-10-02] MEDS: ATORVASTATIN 10 MG TABLET PO SCH (21:30)
[2017-10-03] MEDS: ACETIC ACID 0.25% IRRIGATION 1,000 ML BOTTLE IRRIG SCH ×3 (00:46→20:08)
[2017-10-03] MEDS: oxyCODONE/ACETAMINOPHEN 5-325 MG TABLET PO PRN (00:46)
[2017-10-03] MEDS: methylPREDNISolone SOD SUC 40 MG/1 ML VIAL IV SCH ×3 (00:47→17:05)
[2017-10-03] MEDS: INSULIN LISPRO 100 UNIT/ML SUBCUT SCH ×4 (00:47→17:49)
[2017-10-03] MEDS: PIPERACILLIN/TAZOBACTAM 3,375 MG in SODIUM CHLORIDE 0.9% 100 ML IV SCH ×3 (00:49→17:06)
[2017-10-03] MEDS: DEXMEDETOMIDINE 200 MCG in SODIUM CHLORIDE 0.9% 48 ML IV SCH ×7 (02:40→22:00)
[2017-10-03 03:22] LABS: ABG Base Excess 1.3 MMOL/L (-2.5-2.5); ABG HCO3 25.7 MMOL/L (20-26); ABG Oxygen Saturation 94.9 % (95-100); ABG PCO2 39.5 MM HG (35-48); ABG PH 7.431 (7.35-7.45); ABG PO2 77.9 MM HG (80-95); ABG TCO2 26.9 MMOL/L (23-27); Allen Test Positive; Pt O2 Delivery Device Ventilator
[2017-10-03 04:53] LABS: Hematocrit 26.6 VOL% (42.0-52.0); Hemoglobin 8.6 GM/DL (14.0-18.0); Immature Granulocytes % 1.5 %; Immature Granulocytes Absolute 0.04 #; Lymphocytes # 0.1 10*3/uL (1.4-4.0); Lymphocytes % 4.8 % (21.2-54.2); Mean Corpuscular HGB Conc 32.3 GM/DL (32-36); Mean Corpuscular Hemoglobin 37 PG (27-34); Mean Corpuscular Volume 113.7 FL (87-102); Mean Platelet Volume 11.8 FL (9.6-12.0); Monocytes # 0.2 10*3/uL (0.11-0.8); Monocytes % 7.4 % (1.7-12.7); NRBC # 0.05 10*3/uL; Neutrophils # 2.3 10*3/uL (1.4-7.4); Neutrophils % 86.3 % (38.7-73.9); Platelet Count 142 T/CUMM (130-400); Red Blood Count 2.34 MC/CUMM (3.8-5.5); Red Cell Distribution Width 19.9 % (9.3-17.3); White Blood Count 2.7 T/CUMM (4-12)
[2017-10-03 05:24] LABS: Calcium 7.3 MG/DL (8.5-10.1); Magnesium 2.6 MG/DL (1.8-2.4); Potassium 5.1 MMOL/L (3.5-5.1)
[2017-10-03 05:42] LABS: Anisocytosis 1+; Band Neutrophils 5 % (0-10); Lymphocytes 8 % (20-55); Macrocytosis 3+; Platelet Estimate Decreased; Segmented Neutrophils 87 % (50-85); Total Cells Counted 100
[2017-10-03] MEDS: DOCUSATE SODIUM 100 MG/10 ML UDCUP PO SCH ×2 (08:56→20:08)
[2017-10-03] MEDS: risperiDONE 1 MG TABLET PO SCH ×2 (08:56→20:09)
[2017-10-03] MEDS: azaTHIOprine 50 MG TABLET PO SCH ×2 (08:56→20:09)
[2017-10-03] MEDS: MULTIVITAMIN (OCUVITE) TABLET PO SCH (08:56)
[2017-10-03] MEDS: ISOSORBIDE DINITRATE 20 MG TABLET PO SCH ×3 (08:56→20:09)
[2017-10-03] MEDS: PANTOPRAZOLE 40 MG VIAL IV SCH (08:56)
[2017-10-03] MEDS: GABAPENTIN 400 MG CAPSULE PO SCH ×2 (08:56→20:09)
[2017-10-03] MEDS: PYRIDOSTIGMINE 60 MG TABLET PO SCH ×4 (08:56→20:09)
[2017-10-03] MEDS: GLYCOPYRROLATE 1 MG TABLET PO SCH ×2 (08:57→20:09)
[2017-10-03] MEDS: ASCORBIC ACID 500 MG TABLET PO SCH ×2 (08:57→20:09)
[2017-10-03] MEDS: RIVAROXABAN 20 MG TABLET PO SCH (08:57)
[2017-10-03] MEDS ORDERED: HEPARIN/NACL 0.9% 2 UNITS/ML 1,000 ML IV ONE (09:02)
[2017-10-03] MEDS ORDERED: LIDOCAINE 2%/EPI 20 ML VIAL ONE (09:02)
[2017-10-03] MEDS: ALPRAZolam 0.25 MG TABLET PO PRN ×2 (13:51→20:09)
[2017-10-03] MEDS: SKIN HEALING OINT (AQUAPHOR) 50 GM TUBE TOP PRN (15:45)
[2017-10-03] MEDS: VANCOMYCIN INJ 1,750 MG in SODIUM CHLORIDE 0.9% 500 ML IV SCH (17:06)
[2017-10-03] MEDS: ATORVASTATIN 10 MG TABLET PO SCH (20:09)
[2017-10-04] MEDS: DEXMEDETOMIDINE 200 MCG in SODIUM CHLORIDE 0.9% 48 ML IV SCH ×6 (00:10→22:40)
[2017-10-04] MEDS: methylPREDNISolone SOD SUC 40 MG/1 ML VIAL IV SCH ×3 (02:16→18:12)
[2017-10-04] MEDS: INSULIN LISPRO 100 UNIT/ML SUBCUT SCH ×4 (02:16→19:08)
[2017-10-04] MEDS: PIPERACILLIN/TAZOBACTAM 3,375 MG in SODIUM CHLORIDE 0.9% 100 ML IV SCH ×3 (02:17→19:08)
[2017-10-04 02:50] LABS: ABG Base Excess 2.6 MMOL/L (-2.5-2.5); ABG HCO3 27.2 MMOL/L (20-26); ABG Oxygen Saturation 95.8 % (95-100); ABG PCO2 42.1 MM HG (35-48); ABG PH 7.428 (7.35-7.45); ABG PO2 84.9 MM HG (80-95); ABG TCO2 28.5 MMOL/L (23-27); Allen Test Positive; Pt O2 Delivery Device Ventilator
[2017-10-04 06:06] LABS: Hematocrit 27.8 VOL% (42.0-52.0); Hemoglobin 9.3 GM/DL (14.0-18.0); Immature Granulocytes % 4.8 %; Immature Granulocytes Absolute 0.12 #; Lymphocytes # 0.1 10*3/uL (1.4-4.0); Lymphocytes % 4.8 % (21.2-54.2); Mean Corpuscular HGB Conc 33.5 GM/DL (32-36); Mean Corpuscular Hemoglobin 37 PG (27-34); Mean Corpuscular Volume 111.2 FL (87-102); Mean Platelet Volume 11.8 FL (9.6-12.0); Monocytes # 0.2 10*3/uL (0.11-0.8); Monocytes % 8.5 % (1.7-12.7); NRBC # 0.04 10*3/uL; Neutrophils % 81.9 % (38.7-73.9); Platelet Count 147 T/CUMM (130-400); Red Cell Distribution Width 19.9 % (9.3-17.3); White Blood Count 2.5 T/CUMM (4-12)
[2017-10-04 06:24] LABS: Calcium 7.6 MG/DL (8.5-10.1); Magnesium 2.6 MG/DL (1.8-2.4); Osmolality,Calculated 284.5 MOS/KG (273-304); Potassium 4.9 MMOL/L (3.5-5.1)
[2017-10-04 06:27] LABS: Magnesium 2.6 MG/DL (1.8-2.4); Prealbumin 29.3 MG/DL (20-40)
[2017-10-04 06:54] LABS: Band Neutrophils 3 % (0-10); Hypochromasia 1+; Lymphocytes 5 % (20-55); Macrocytosis 1+; Nucleated Red Blood Cells 5 (0-5); Segmented Neutrophils 87 % (50-85); Total Cells Counted 100
[2017-10-04 06:55] LABS: Ovalocytes Few; Platelet Estimate Adequate
[2017-10-04] MEDS: PANTOPRAZOLE 40 MG VIAL IV SCH (09:05)
[2017-10-04] MEDS: DOCUSATE SODIUM 100 MG/10 ML UDCUP PO SCH ×2 (09:05→22:39)
[2017-10-04] MEDS: MULTIVITAMIN (OCUVITE) TABLET PO SCH (09:06)
[2017-10-04] MEDS: risperiDONE 1 MG TABLET PO SCH ×2 (09:06→22:40)
[2017-10-04] MEDS: GLYCOPYRROLATE 1 MG TABLET PO SCH ×2 (09:06→22:40)
[2017-10-04] MEDS: ISOSORBIDE DINITRATE 20 MG TABLET PO SCH ×3 (09:06→22:39)
[2017-10-04] MEDS: ALPRAZolam 0.25 MG TABLET PO PRN ×2 (09:06→20:10)
[2017-10-04] MEDS: GABAPENTIN 400 MG CAPSULE PO SCH ×2 (09:06→22:40)
[2017-10-04] MEDS: ASCORBIC ACID 500 MG TABLET PO SCH ×2 (09:07→22:40)
[2017-10-04] MEDS: PYRIDOSTIGMINE 60 MG TABLET PO SCH ×4 (09:07→22:39)
[2017-10-04] MEDS: azaTHIOprine 50 MG TABLET PO SCH ×2 (09:07→22:39)
[2017-10-04] MEDS: ACETIC ACID 0.25% IRRIGATION 1,000 ML BOTTLE IRRIG SCH ×2 (09:07→22:39)
[2017-10-04] MEDS: RIVAROXABAN 20 MG TABLET PO SCH (11:28)
[2017-10-04] MEDS: VANCOMYCIN INJ 1,750 MG in SODIUM CHLORIDE 0.9% 500 ML IV SCH (18:12)
[2017-10-04] MEDS: ATORVASTATIN 10 MG TABLET PO SCH (22:39)
[2017-10-05] MEDS: DEXMEDETOMIDINE 200 MCG in SODIUM CHLORIDE 0.9% 48 ML IV SCH ×3 (01:05→11:23)
[2017-10-05] MEDS: INSULIN LISPRO 100 UNIT/ML SUBCUT SCH ×4 (01:30→17:20)
[2017-10-05] MEDS: PIPERACILLIN/TAZOBACTAM 3,375 MG in SODIUM CHLORIDE 0.9% 100 ML IV SCH ×3 (01:33→16:45)
[2017-10-05] MEDS: methylPREDNISolone SOD SUC 40 MG/1 ML VIAL IV SCH ×3 (01:33→18:13)
[2017-10-05 03:38] LABS: ABG Base Excess 3.2 MMOL/L (-2.5-2.5); ABG HCO3 27.2 MMOL/L (20-26); ABG PCO2 40.7 MM HG (35-48); ABG PH 7.439 (7.35-7.45); ABG PO2 76.8 MM HG (80-95)
[2017-10-05 04:49] LABS: Basophils % 0.4 % (0.0-0.8); Eosinophils % 0.4 % (0.00-10.9); Hematocrit 28.7 VOL% (42.0-52.0); Hemoglobin 9.4 GM/DL (14.0-18.0); Immature Granulocytes Absolute 0.11 #; Lymphocytes # 0.2 10*3/uL (1.4-4.0); Lymphocytes % 6.5 % (21.2-54.2); Mean Corpuscular HGB Conc 32.8 GM/DL (32-36); Mean Corpuscular Hemoglobin 38 PG (27-34); Mean Corpuscular Volume 114.3 FL (87-102); Monocytes # 0.3 10*3/uL (0.11-0.8); Monocytes % 11.6 % (1.7-12.7); NRBC # 0.04 10*3/uL; Neutrophils # 2.1 10*3/uL (1.4-7.4); Neutrophils % 77.1 % (38.7-73.9); Platelet Count 142 T/CUMM (130-400); Red Blood Count 2.51 MC/CUMM (3.8-5.5); Red Cell Distribution Width 19.7 % (9.3-17.3); White Blood Count 2.8 T/CUMM (4-12)
[2017-10-05 05:17] LABS: Calcium 7.3 MG/DL (8.5-10.1); Magnesium 2.3 MG/DL (1.8-2.4); Osmolality,Calculated 285.3 MOS/KG (273-304); Potassium 4.8 MMOL/L (3.5-5.1)
[2017-10-05] MEDS: ASCORBIC ACID 500 MG TABLET PO SCH ×2 (08:01→21:34)
[2017-10-05] MEDS: MULTIVITAMIN (OCUVITE) TABLET PO SCH (08:01)
[2017-10-05] MEDS: PANTOPRAZOLE 40 MG VIAL IV SCH (08:01)
[2017-10-05] MEDS: azaTHIOprine 50 MG TABLET PO SCH ×2 (08:02→21:33)
[2017-10-05] MEDS: ISOSORBIDE DINITRATE 20 MG TABLET PO SCH ×3 (08:02→21:33)
[2017-10-05] MEDS: risperiDONE 1 MG TABLET PO SCH ×2 (08:02→21:33)
[2017-10-05] MEDS: DOCUSATE SODIUM 100 MG/10 ML UDCUP PO SCH ×2 (08:02→21:33)
[2017-10-05] MEDS: GLYCOPYRROLATE 1 MG TABLET PO SCH ×2 (08:02→21:33)
[2017-10-05] MEDS: PYRIDOSTIGMINE 60 MG TABLET PO SCH ×4 (08:02→21:33)
[2017-10-05] MEDS: GABAPENTIN 400 MG CAPSULE PO SCH ×2 (08:02→21:33)
[2017-10-05 08:25] LABS: Allen Test Positive; Pt O2 Delivery Device CPAP
[2017-10-05 08:27] LABS: ABG HCO3 26.2 MMOL/L (20-26); ABG Oxygen Saturation 97.8 % (95-100); ABG PCO2 40.9 MM HG (35-48); ABG PH 7.421 (7.35-7.45); ABG PO2 95.4 MM HG (80-95); ABG TCO2 24.2 MMOL/L (23-27)
[2017-10-05] MEDS: ACETIC ACID 0.25% IRRIGATION 1,000 ML BOTTLE IRRIG SCH ×2 (10:00→21:33)
[2017-10-05 11:39] LABS: ABG Oxygen Saturation 96.9 % (95-100); ABG PCO2 41.7 MM HG (35-48); ABG PH 7.428 (7.35-7.45); ABG PO2 83.2 MM HG (80-95); Allen Test Positive; Pt O2 Delivery Device BIPAP
[2017-10-05] MEDS: amLODIPine 5 MG TABLET PO SCH (14:30)
[2017-10-05] MEDS: VANCOMYCIN INJ 1,750 MG in SODIUM CHLORIDE 0.9% 500 ML IV SCH (16:45)
[2017-10-05] MEDS: ATORVASTATIN 10 MG TABLET PO SCH (21:33)
[2017-10-05] MEDS: ALPRAZolam 0.25 MG TABLET PO PRN (21:34)
[2017-10-06] MEDS: methylPREDNISolone SOD SUC 40 MG/1 ML VIAL IV SCH ×3 (01:10→17:22)
[2017-10-06] MEDS: INSULIN LISPRO 100 UNIT/ML SUBCUT SCH ×4 (01:10→18:31)
[2017-10-06] MEDS: PIPERACILLIN/TAZOBACTAM 3,375 MG in SODIUM CHLORIDE 0.9% 100 ML IV SCH ×3 (01:10→17:22)
[2017-10-06] MEDS: oxyCODONE/ACETAMINOPHEN 5-325 MG TABLET PO PRN (01:23)
[2017-10-06 04:20] LABS: ABG Base Excess 5.5 MMOL/L (-2.5-2.5); ABG HCO3 29.3 MMOL/L (20-26); ABG Oxygen Saturation 92.7 % (95-100); ABG PCO2 43.9 MM HG (35-48); ABG PH 7.445 (7.35-7.45); ABG PO2 64.8 MM HG (80-95); ABG TCO2 27.5 MMOL/L (23-27)
[2017-10-06 06:11] LABS: Hematocrit 28.6 VOL% (42.0-52.0); Hemoglobin 9.5 GM/DL (14.0-18.0); Immature Granulocytes % 4.6 %; Immature Granulocytes Absolute 0.17 #; Lymphocytes # 0.1 10*3/uL (1.4-4.0); Lymphocytes % 3.8 % (21.2-54.2); Mean Corpuscular HGB Conc 33.2 GM/DL (32-36); Mean Corpuscular Hemoglobin 38 PG (27-34); Mean Corpuscular Volume 113.9 FL (87-102); Mean Platelet Volume 11.6 FL (9.6-12.0); Monocytes # 0.2 10*3/uL (0.11-0.8); Monocytes % 5.7 % (1.7-12.7); NRBC # 0.02 10*3/uL; Neutrophils # 3.2 10*3/uL (1.4-7.4); Neutrophils % 85.9 % (38.7-73.9); Platelet Count 160 T/CUMM (130-400); Red Blood Count 2.51 MC/CUMM (3.8-5.5); White Blood Count 3.7 T/CUMM (4-12)
[2017-10-06 06:34] LABS: Calcium 7.6 MG/DL (8.5-10.1); Magnesium 2.4 MG/DL (1.8-2.4); Osmolality,Calculated 286.1 MOS/KG (273-304); Potassium 4.6 MMOL/L (3.5-5.1)
[2017-10-06 06:55] LABS: Band Neutrophils 4 % (0-10); Hypochromasia 1+; Lymphocytes 3 % (20-55); Platelet Estimate Normal; Segmented Neutrophils 90 % (50-85); Total Cells Counted 100
[2017-10-06 06:56] LABS: Giant Platelets Few; Macrocytosis Slight; Ovalocytes Slight
[2017-10-06] MEDS: ISOSORBIDE DINITRATE 20 MG TABLET PO SCH ×3 (09:16→20:10)
[2017-10-06] MEDS: risperiDONE 1 MG TABLET PO SCH ×2 (09:16→20:10)
[2017-10-06] MEDS: GLYCOPYRROLATE 1 MG TABLET PO SCH ×2 (09:16→20:10)
[2017-10-06] MEDS: DOCUSATE SODIUM 100 MG/10 ML UDCUP PO SCH ×3 (09:16→20:16)
[2017-10-06] MEDS: MULTIVITAMIN (OCUVITE) TABLET PO SCH (09:16)
[2017-10-06] MEDS: GABAPENTIN 400 MG CAPSULE PO SCH ×2 (09:17→20:10)
[2017-10-06] MEDS: PANTOPRAZOLE 40 MG VIAL IV SCH (09:17)
[2017-10-06] MEDS: PYRIDOSTIGMINE 60 MG TABLET PO SCH ×4 (09:17→20:10)
[2017-10-06] MEDS: azaTHIOprine 50 MG TABLET PO SCH ×2 (09:17→20:10)
[2017-10-06] MEDS: amLODIPine 5 MG TABLET PO SCH (09:17)
[2017-10-06] MEDS: ASCORBIC ACID 500 MG TABLET PO SCH ×2 (09:46→20:10)
[2017-10-06] MEDS: DEXMEDETOMIDINE 200 MCG in SODIUM CHLORIDE 0.9% 48 ML IV SCH (09:47)
[2017-10-06] MEDS: ACETIC ACID 0.25% IRRIGATION 1,000 ML BOTTLE IRRIG SCH ×2 (11:05→22:54)
[2017-10-06] MEDS: ENOXAPARIN 120 MG/0.8 ML SYRINGE SUBCUT SCH ×2 (11:35→23:25)
[2017-10-06] MEDS ORDERED: VANCOMYCIN INJ 1,000 MG in SODIUM CHLORIDE 0.9% 250 ML IV ONE (15:10)
[2017-10-06] MEDS ORDERED: SODIUM CHLORIDE 0.9% 1,000 ML IV SCH (15:30)
[2017-10-06] MEDS: SODIUM CHLORIDE 0.9% 1,000 ML IV SCH (19:25)
[2017-10-06] MEDS: ATORVASTATIN 10 MG TABLET PO SCH (20:10)
[2017-10-06] MEDS: VANCOMYCIN INJ 1,750 MG in SODIUM CHLORIDE 0.9% 500 ML IV SCH (22:54)
[2017-10-07] MEDS: INSULIN LISPRO 100 UNIT/ML SUBCUT SCH ×4 (00:09→18:11)
[2017-10-07] MEDS: methylPREDNISolone SOD SUC 40 MG/1 ML VIAL IV SCH (01:07)
[2017-10-07] MEDS: PIPERACILLIN/TAZOBACTAM 3,375 MG in SODIUM CHLORIDE 0.9% 100 ML IV SCH (01:15)
[2017-10-07] MEDS ORDERED: hydrALAZINE 20 MG/1 ML VIAL IV PRN (02:10)
[2017-10-07] MEDS ORDERED: methylPREDNISolone SOD SUC 40 MG/1 ML VIAL IV SCH (06:30)
[2017-10-07 07:57] LABS: Immature Granulocytes Absolute 0.11 #; Lymphocytes # 0.3 10*3/uL (1.4-4.0); Lymphocytes % 4.6 % (21.2-54.2); Mean Corpuscular HGB Conc 32.3 GM/DL (32-36); Mean Corpuscular Hemoglobin 37 PG (27-34); Mean Corpuscular Volume 115.2 FL (87-102); Mean Platelet Volume 11.5 FL (9.6-12.0); Monocytes # 0.3 10*3/uL (0.11-0.8); Monocytes % 6.2 % (1.7-12.7); Neutrophils # 4.8 10*3/uL (1.4-7.4); Neutrophils % 87.2 % (38.7-73.9); Platelet Count 162 T/CUMM (130-400); Red Blood Count 2.69 MC/CUMM (3.8-5.5); White Blood Count 5.5 T/CUMM (4-12)
[2017-10-07 08:24] LABS: Calcium 7.7 MG/DL (8.5-10.1); Magnesium 2.5 MG/DL (1.8-2.4); Osmolality,Calculated 290.8 MOS/KG (273-304); Potassium 4.5 MMOL/L (3.5-5.1)
[2017-10-07 08:29] LABS: Calcium 7.7 MG/DL (8.5-10.1); Magnesium 2.7 MG/DL (1.8-2.4); Osmolality,Calculated 290.8 MOS/KG (273-304); Potassium 4.6 MMOL/L (3.5-5.1)
[2017-10-07] MEDS ORDERED: methylPREDNISolone SOD SUC 125 MG/2 ML VIAL ONE (08:43)
[2017-10-07] MEDS ORDERED: PANTOPRAZOLE 40 MG VIAL IV ONE (08:43)
[2017-10-07] MEDS ORDERED: PROPOFOL 200 MG/20 ML VIAL IV ONE (08:44)
[2017-10-07] MEDS ORDERED: MIDAZOLAM 2 MG/2 ML VIAL ONE (08:45)
[2017-10-07] MEDS ORDERED: fentaNYL 100 MCG/2 ML VIAL ONE (08:45)
[2017-10-07] MEDS ORDERED: PHENYLEPHRINE DRIP 0 MG/0 ML PREMIX IV ONE (08:45)
[2017-10-07 09:05] LABS: Giant Platelets Few; Hypochromasia 1+; Lymphocytes 2 % (20-55); Nucleated Red Blood Cells 1 (0-5); Ovalocytes Slight; Platelet Estimate Normal; Segmented Neutrophils 90 % (50-85); Total Cells Counted 100
[2017-10-07 09:06] LABS: Macrocytosis Slight
[2017-10-07] MEDS: ASCORBIC ACID 500 MG TABLET PO SCH ×2 (09:22→21:43)
[2017-10-07] MEDS: GLYCOPYRROLATE 1 MG TABLET PO SCH ×2 (09:22→21:43)
[2017-10-07] MEDS: azaTHIOprine 50 MG TABLET PO SCH ×2 (09:22→21:43)
[2017-10-07] MEDS: PANTOPRAZOLE 40 MG VIAL IV SCH (09:22)
[2017-10-07] MEDS: ISOSORBIDE DINITRATE 20 MG TABLET PO SCH ×3 (09:22→21:43)
[2017-10-07] MEDS: MULTIVITAMIN (OCUVITE) TABLET PO SCH (09:22)
[2017-10-07] MEDS: amLODIPine 10 MG TABLET PO SCH (09:23)
[2017-10-07] MEDS: GABAPENTIN 400 MG CAPSULE PO SCH ×2 (09:23→21:42)
[2017-10-07] MEDS: risperiDONE 1 MG TABLET PO SCH ×2 (09:23→21:43)
[2017-10-07] MEDS: ASPIRIN EC 81 MG TABLET PO SCH (09:23)
[2017-10-07] MEDS: PYRIDOSTIGMINE 60 MG TABLET PO SCH ×4 (09:23→21:43)
[2017-10-07] MEDS: DOCUSATE SODIUM 100 MG/10 ML UDCUP PO SCH ×3 (09:26→21:53)
[2017-10-07] MEDS: ACETIC ACID 0.25% IRRIGATION 1,000 ML BOTTLE IRRIG SCH ×2 (10:15→21:44)
[2017-10-07] MEDS: SKIN HEALING OINT (AQUAPHOR) 50 GM TUBE TOP PRN (10:15)
[2017-10-07] MEDS ORDERED: diphenhydrAMINE CAP 25 MG CAPSULE PO ONE ×2 (12:00→16:37)
[2017-10-07] MEDS ORDERED: DIAZEPAM 5 MG TABLET PO ONE ×2 (12:00→16:37)
[2017-10-07] MEDS: VANCOMYCIN INJ 1,750 MG in SODIUM CHLORIDE 0.9% 500 ML IV SCH (14:49)
[2017-10-07] MEDS ORDERED: ENOXAPARIN 120 MG/0.8 ML SYRINGE SUBCUT SCH ×2 (15:30→16:00)
[2017-10-07] MEDS ORDERED: POTASSIUM CHLORIDE RIDER 10 MEQ in PREMIX 1 EACH IV PRN (16:37)
[2017-10-07] MEDS ORDERED: MAGNESIUM SULF RIDER 2 GM in PREMIX 1 EACH IV PRN (16:37)
[2017-10-07] MEDS: ATORVASTATIN 10 MG TABLET PO SCH (21:43)
[2017-10-08] MEDS: INSULIN LISPRO 100 UNIT/ML SUBCUT SCH ×3 (02:10→11:49)
[2017-10-08] MEDS ORDERED: methylPREDNISolone SOD SUC 40 MG/1 ML VIAL IV SCH (02:30)
[2017-10-08 06:14] LABS: Hematocrit 27.7 VOL% (42.0-52.0); Immature Granulocytes % 1.7 %; Immature Granulocytes Absolute 0.07 #; Lymphocytes # 0.2 10*3/uL (1.4-4.0); Mean Corpuscular HGB Conc 32.5 GM/DL (32-36); Mean Corpuscular Hemoglobin 37 PG (27-34); Mean Platelet Volume 11.6 FL (9.6-12.0); Monocytes # 0.3 10*3/uL (0.11-0.8); Monocytes % 6.9 % (1.7-12.7); NRBC # 0.02 10*3/uL; Neutrophils # 3.7 10*3/uL (1.4-7.4); Neutrophils % 86.4 % (38.7-73.9); Platelet Count 140 T/CUMM (130-400); Red Blood Count 2.43 MC/CUMM (3.8-5.5); Red Cell Distribution Width 20.5 % (9.3-17.3); White Blood Count 4.2 T/CUMM (4-12)
[2017-10-08] MEDS ORDERED: DIAZEPAM 5 MG TABLET PO ONE (06:30)
[2017-10-08] MEDS ORDERED: diphenhydrAMINE CAP 25 MG CAPSULE PO ONE (06:30)
[2017-10-08 06:31] LABS: Calcium 7.8 MG/DL (8.5-10.1); Magnesium 2.5 MG/DL (1.8-2.4); Potassium 4.2 MMOL/L (3.5-5.1)
[2017-10-08 06:36] LABS: Giant Platelets Few; Hypochromasia 1+; Ovalocytes Slight; Platelet Estimate Normal
[2017-10-08 06:37] LABS: Macrocytosis Slight
[2017-10-08] MEDS ORDERED: LIDOCAINE 1% 20 ML VIAL ONE ×2 (07:12→07:46)
[2017-10-08] MEDS ORDERED: HEPARIN/NACL 0.9% 2 UNITS/ML 1,000 ML IV ONE (07:12)
[2017-10-08] MEDS ORDERED: VANCOMYCIN 500 MG VIAL ONE (07:49)
[2017-10-08] MEDS ORDERED: TISSUE ADHESIVE 1 EACH APPLICATOR TOP ONE (08:35)
[2017-10-08] MEDS: SODIUM CHLORIDE 0.9% 1,000 ML IV SCH (08:45)
[2017-10-08] MEDS ORDERED: PROPOFOL 200 MG/20 ML VIAL IV ONE (09:58)
[2017-10-08] MEDS ORDERED: MIDAZOLAM 2 MG/2 ML VIAL ONE (09:59)
[2017-10-08] MEDS ORDERED: fentaNYL 100 MCG/2 ML VIAL ONE (09:59)
[2017-10-08] MEDS: GABAPENTIN 400 MG CAPSULE PO SCH (10:39)
[2017-10-08] MEDS: risperiDONE 1 MG TABLET PO SCH (10:40)
[2017-10-08] MEDS: amLODIPine 10 MG TABLET PO SCH (10:41)
[2017-10-08] MEDS: GLYCOPYRROLATE 1 MG TABLET PO SCH (10:41)
[2017-10-08] MEDS: PYRIDOSTIGMINE 60 MG TABLET PO SCH ×3 (10:41→17:55)
[2017-10-08] MEDS: ISOSORBIDE DINITRATE 20 MG TABLET PO SCH ×2 (10:41→15:03)
[2017-10-08] MEDS: MULTIVITAMIN (OCUVITE) TABLET PO SCH (10:43)
[2017-10-08] MEDS: ASPIRIN EC 81 MG TABLET PO SCH (10:44)
[2017-10-08] MEDS: ASCORBIC ACID 500 MG TABLET PO SCH (10:44)
[2017-10-08] MEDS: DOCUSATE SODIUM 100 MG/10 ML UDCUP PO SCH ×2 (10:45→11:11)
[2017-10-08] MEDS: PANTOPRAZOLE 40 MG VIAL IV SCH (10:47)
[2017-10-08] MEDS: CYANOCOBALAMIN 1000 MCG/1 ML VIAL IM SCH (10:47)
[2017-10-08] MEDS: azaTHIOprine 50 MG TABLET PO SCH (10:47)
[2017-10-08] MEDS: VANCOMYCIN INJ 1,750 MG in SODIUM CHLORIDE 0.9% 500 ML IV SCH (10:49)
[2017-10-08] MEDS ORDERED: BENZOIN COMPOUND TINCTURE 58 ML BOTTLE TOP ONE (12:24)
[2017-10-08] MEDS ORDERED: LIDOCAINE 1% 20 ML VIAL MISC INJ ONE (12:31)
[2017-10-08] MEDS: ACETIC ACID 0.25% IRRIGATION 1,000 ML BOTTLE IRRIG SCH (14:01)
[2017-10-08 17:31] VITALS: BP 159/73
== END 2017-10-08 17:17 | DRG 981 ==
LOC: EDBD → EDUNIT# → N.ED 14:07 → N.EDINP 14:50 → SUPCPDRO 15:21 → SUATTDRO 15:21 → N.ICU 16:15
PROVIDERS: ADMIT Family Medicine; ATTEND Internal Medicine Geriatric Medicine

== ENCOUNTER 2018-02-21 17:23 | Inpatient (IN) ==
[2018-02-21 18:40] LABS: Basophils % 0.3 % (0.0-0.8); Eosinophils # 0.1 10*3/uL (0.0-0.87); Eosinophils % 1.8 % (0.00-10.9); Hematocrit 27.8 VOL% (42.0-52.0); Hemoglobin 8.7 GM/DL (14.0-18.0); Immature Granulocytes % 0.8 %; Immature Granulocytes Absolute 0.05 #; Lymphocytes # 0.3 10*3/uL (1.4-4.0); Mean Corpuscular HGB Conc 31.3 GM/DL (32-36); Mean Corpuscular Hemoglobin 34 PG (27-34); Mean Corpuscular Volume 106.9 FL (87-102); Mean Platelet Volume 10.4 FL (9.6-12.0); Monocytes # 0.2 10*3/uL (0.11-0.8); Monocytes % 3.8 % (1.7-12.7); Neutrophils # 5.3 10*3/uL (1.4-7.4); Neutrophils % 88.3 % (38.7-73.9); Platelet Count 161 T/CUMM (130-400)
[2018-02-21 18:49] LABS: INR 1.1; PT Patient Result 11.4 SECS
[2018-02-21 18:58] LABS: Alanine Aminotransferase 13 U/L (16-61); Alkaline Phosphatase 78 U/L (45-117); Aspartate Amino Transferase 14 U/L (0-37); Blood Urea Nitrogen 8 MG/DL (7-18); Calcium 8.2 MG/DL (8.5-10.1); Glucose 99 MG/DL (74-106); Osmolality,Calculated 278.3 MOS/KG (273-304); Potassium 3.8 MMOL/L (3.5-5.1); Sodium 141 MMOL/L (136-145); Total Protein 6.6 G/DL (6.4-8.3); Troponin I Only < 0.015 NG/ML (0.00-0.045)
[2018-02-21 19:03] LABS: Lactic Acid 0.6 MMOL/L (0.4-2.0)
[2018-02-21] MEDS ORDERED: LEVOFLOXACIN INJ 750 MG in PREMIX 1 EACH IV SCH (20:00)
[2018-02-21] MEDS ORDERED: ALBUTEROL/IPRATROPIUM 3 ML NEB RESP TX STA (21:15)
[2018-02-21] MEDS ORDERED: MORPHINE 4 MG/1 ML VIAL IV STA (21:22)
[2018-02-21] MEDS ORDERED: ALBUTEROL NEB SOLN 5 MG/ML 20 ML/BOTTLE CONT NEB STA (21:22)
[2018-02-22] MEDS ORDERED: FUROSEMIDE 40 MG/4 ML VIAL IV ONE (01:10)
[2018-02-22] MEDS ORDERED: ONDANSETRON 4 MG/2 ML VIAL IV PRN (02:24)
[2018-02-22] MEDS ORDERED: ACETAMINOPHEN 325 MG TABLET PO PRN (02:24)
[2018-02-22] MEDS ORDERED: ALBUTEROL/IPRATROPIUM 3 ML NEB RESP TX PRN (02:24)
[2018-02-22] MEDS ORDERED: ALBUTEROL/IPRATROPIUM 3 ML NEB RESP TX SCH (02:24)
[2018-02-22 02:32] LABS: Apearance,Urine CLEAR (Clear); Bilirubin,Urine Negative (Negative); Blood, Urine Negative (Negative); Glucose,Urine (UA) Negative (Negative); Ketones,Urine 80 mg/dL (Negative); Mucus,Urine Occasional /LPF (Occasional); Nitrite,Urine Negative (Negative); Protein,Urine 30 MG/DL; RBC,Urine 1 /HPF (0-4); Squamous Epithelial Cell,Urine Occasional /HPF (0-10); Urine Color Yellow (Yellow); Urine Specific Gravity 1.009 (1.001-1.035); Urine Urobilinogen < 2.0 EU/DL (0.2-1.0); WBC,Urine 1 /HPF (0-6)
[2018-02-22] MEDS: MORPHINE 4 MG/1 ML VIAL IV PRN (02:39)
[2018-02-22] MEDS: CARVEDILOL 6.25 MG TABLET PO SCH ×3 (02:41→09:42)
[2018-02-22] MEDS: hydrALAZINE 25 MG TABLET PO SCH ×4 (02:41→21:44)
[2018-02-22] MEDS: ATORVASTATIN 10 MG TABLET PO SCH ×3 (02:41→21:43)
[2018-02-22 03:13] LABS: ABG Base Excess 2.2 MMOL/L (-2.5-2.5); ABG HCO3 26.3 MMOL/L (20-26); ABG PH 7.371 (7.35-7.45); ABG TCO2 24.5 MMOL/L (23-27); Pt O2 Delivery Device CPAP
[2018-02-22] MEDS: ALBUTEROL/IPRATROPIUM 3 ML NEB RESP TX SCH ×3 (08:30→19:12)
[2018-02-22] MEDS ORDERED: amLODIPine 10 MG TABLET PO SCH (09:00)
[2018-02-22] MEDS: methylPREDNISolone SOD SUC 40 MG/1 ML VIAL IV SCH ×2 (09:31→21:43)
[2018-02-22] MEDS: FUROSEMIDE 40 MG/4 ML VIAL IV SCH ×2 (09:33→15:39)
[2018-02-22] MEDS: PANTOPRAZOLE 40 MG VIAL IV SCH (09:35)
[2018-02-22] MEDS: CLINDAMYCIN INJ 600 MG in PREMIX 1 EACH IV SCH ×2 (09:37→17:56)
[2018-02-22] MEDS: RIVAROXABAN 20 MG TABLET PO SCH (09:41)
[2018-02-22] MEDS: POTASSIUM CHLORIDE 10 MEQ TABLET PO SCH ×2 (09:41→21:44)
[2018-02-22] MEDS: ASCORBIC ACID 500 MG TABLET PO SCH ×2 (09:41→21:44)
[2018-02-22] MEDS: azaTHIOprine 50 MG TABLET PO SCH ×2 (09:41→21:44)
[2018-02-22] MEDS: GLYCOPYRROLATE 1 MG TABLET PO SCH ×2 (09:41→21:44)
[2018-02-22] MEDS: MULTIVITAMIN (CENTRUM) TABLET PO SCH (09:41)
[2018-02-22] MEDS: CITALOPRAM 20 MG TABLET PO SCH ×2 (09:41→21:44)
[2018-02-22] MEDS: predniSONE 5 MG TABLET PO SCH (09:42)
[2018-02-22] MEDS: GABAPENTIN 400 MG CAPSULE PO SCH ×2 (09:42→21:44)
[2018-02-22] MEDS: PYRIDOSTIGMINE 60 MG TABLET PO SCH ×4 (09:42→21:50)
[2018-02-22] MEDS: DOCUSATE SODIUM 100 MG CAPSULE PO SCH ×2 (09:43→21:44)
[2018-02-22] MEDS ORDERED: IMMUNE GLOBULIN 10% 40 GM, IMMUNE GLOBULIN 10% 5 GM in PREMIX 1 EACH IV ONE (17:03)
[2018-02-22] MEDS: LEVOFLOXACIN INJ 750 MG in PREMIX 1 EACH IV SCH (21:43)
[2018-02-22] MEDS: CARVEDILOL 12.5 MG TABLET PO SCH (21:44)
[2018-02-23] MEDS: ALBUTEROL/IPRATROPIUM 3 ML NEB RESP TX SCH ×4 (00:36→20:14)
[2018-02-23] MEDS: CLINDAMYCIN INJ 600 MG in PREMIX 1 EACH IV SCH ×3 (02:14→17:51)
[2018-02-23 05:20] LABS: Basophils % 0.2 % (0.0-0.8); Hematocrit 26.7 VOL% (42.0-52.0); Hemoglobin 8.6 GM/DL (14.0-18.0); Immature Granulocytes % 0.8 %; Immature Granulocytes Absolute 0.04 #; Lymphocytes # 0.1 10*3/uL (1.4-4.0); Lymphocytes % 2.9 % (21.2-54.2); Mean Corpuscular HGB Conc 32.2 GM/DL (32-36); Mean Corpuscular Hemoglobin 33 PG (27-34); Mean Corpuscular Volume 102.7 FL (87-102); Mean Platelet Volume 10.8 FL (9.6-12.0); Monocytes # 0.1 10*3/uL (0.11-0.8); Monocytes % 1.9 % (1.7-12.7); NRBC # 0.02 10*3/uL; Neutrophils # 4.5 10*3/uL (1.4-7.4); Neutrophils % 94.2 % (38.7-73.9); Platelet Count 163 T/CUMM (130-400); Red Cell Distribution Width 19.2 % (9.3-17.3); White Blood Count 4.8 T/CUMM (4-12)
[2018-02-23 05:44] LABS: Calcium 8.5 MG/DL (8.5-10.1); Osmolality,Calculated 276.7 MOS/KG (273-304); Potassium 3.7 MMOL/L (3.5-5.1)
[2018-02-23 05:49] LABS: Band Neutrophils 1 % (0-10); Hypochromasia 1+; Lymphocytes 1 % (20-55); Ovalocytes Slight; Platelet Estimate Normal; Segmented Neutrophils 96 % (50-85); Total Cells Counted 100
[2018-02-23 05:55] LABS: Calcium 8.1 MG/DL (8.5-10.1); Osmolality,Calculated 279.5 MOS/KG (273-304); Potassium 3.7 MMOL/L (3.5-5.1)
[2018-02-23] MEDS ORDERED: amLODIPine 5 MG TABLET PO SCH (09:00)
[2018-02-23] MEDS: PANTOPRAZOLE 40 MG VIAL IV SCH (11:07)
[2018-02-23] MEDS: FUROSEMIDE 40 MG/4 ML VIAL IV SCH ×2 (11:07→15:33)
[2018-02-23] MEDS: methylPREDNISolone SOD SUC 40 MG/1 ML VIAL IV SCH ×2 (11:07→21:54)
[2018-02-23] MEDS: azaTHIOprine 50 MG TABLET PO SCH ×2 (11:08→21:52)
[2018-02-23] MEDS: ASCORBIC ACID 500 MG TABLET PO SCH ×2 (11:08→21:51)
[2018-02-23] MEDS: DOCUSATE SODIUM 100 MG CAPSULE PO SCH ×2 (11:08→21:53)
[2018-02-23] MEDS: PYRIDOSTIGMINE 60 MG TABLET PO SCH ×4 (11:08→21:58)
[2018-02-23] MEDS: GABAPENTIN 400 MG CAPSULE PO SCH ×2 (11:08→21:51)
[2018-02-23] MEDS: CARVEDILOL 12.5 MG TABLET PO SCH ×2 (11:09→21:51)
[2018-02-23] MEDS: MULTIVITAMIN (CENTRUM) TABLET PO SCH (11:09)
[2018-02-23] MEDS: RIVAROXABAN 20 MG TABLET PO SCH (11:09)
[2018-02-23] MEDS: CITALOPRAM 20 MG TABLET PO SCH ×2 (11:09→21:51)
[2018-02-23] MEDS: predniSONE 5 MG TABLET PO SCH (11:09)
[2018-02-23] MEDS: POTASSIUM CHLORIDE 10 MEQ TABLET PO SCH ×2 (11:09→21:52)
[2018-02-23] MEDS: hydrALAZINE 25 MG TABLET PO SCH ×2 (11:10→21:51)
[2018-02-23] MEDS: GLYCOPYRROLATE 1 MG TABLET PO SCH ×2 (11:22→21:50)
[2018-02-23] MEDS ORDERED: GLUCAGON 1 MG VIAL IM PRN (14:19)
[2018-02-23] MEDS ORDERED: DEXTROSE 50% 25 GM/50 ML VIAL IV PRN (14:19)
[2018-02-23] MEDS: INSULIN LISPRO 100 UNIT/ML SUBCUT SCH ×2 (17:31→21:52)
[2018-02-23] MEDS: ATORVASTATIN 10 MG TABLET PO SCH (21:51)
[2018-02-23] MEDS: LEVOFLOXACIN INJ 750 MG in PREMIX 1 EACH IV SCH (22:03)
[2018-02-24] MEDS: MORPHINE 4 MG/1 ML VIAL IV PRN (01:13)
[2018-02-24] MEDS: CLINDAMYCIN INJ 600 MG in PREMIX 1 EACH IV SCH ×3 (01:16→17:25)
[2018-02-24] MEDS: ALBUTEROL/IPRATROPIUM 3 ML NEB RESP TX SCH ×4 (01:17→19:02)
[2018-02-24 05:48] LABS: Basophils % 0.2 % (0.0-0.8); Hematocrit 27.3 VOL% (42.0-52.0); Hemoglobin 8.8 GM/DL (14.0-18.0); Immature Granulocytes % 0.8 %; Immature Granulocytes Absolute 0.05 #; Lymphocytes # 0.2 10*3/uL (1.4-4.0); Lymphocytes % 2.3 % (21.2-54.2); Mean Corpuscular HGB Conc 32.2 GM/DL (32-36); Mean Corpuscular Hemoglobin 34 PG (27-34); Mean Corpuscular Volume 103.8 FL (87-102); Mean Platelet Volume 11.1 FL (9.6-12.0); Monocytes # 0.1 10*3/uL (0.11-0.8); Monocytes % 1.8 % (1.7-12.7); Neutrophils # 6.2 10*3/uL (1.4-7.4); Neutrophils % 94.9 % (38.7-73.9); Platelet Count 150 T/CUMM (130-400); Red Blood Count 2.63 MC/CUMM (3.8-5.5); Red Cell Distribution Width 18.7 % (9.3-17.3); White Blood Count 6.5 T/CUMM (4-12)
[2018-02-24 06:14] LABS: Band Neutrophils 4 % (0-10); Hypochromasia 1+; Lymphocytes 3 % (20-55); Macrocytosis 1+; Ovalocytes Slight; Segmented Neutrophils 93 % (50-85); Total Cells Counted 100
[2018-02-24 06:15] LABS: Platelet Estimate Adequate
[2018-02-24 06:26] LABS: Calcium 8.4 MG/DL (8.5-10.1); Osmolality,Calculated 281.5 MOS/KG (273-304); Potassium 3.6 MMOL/L (3.5-5.1)
[2018-02-24] MEDS: methylPREDNISolone SOD SUC 40 MG/1 ML VIAL IV SCH (09:37)
[2018-02-24] MEDS: PANTOPRAZOLE 40 MG VIAL IV SCH (09:37)
[2018-02-24] MEDS: FUROSEMIDE 40 MG/4 ML VIAL IV SCH ×2 (09:37→15:32)
[2018-02-24] MEDS: CITALOPRAM 20 MG TABLET PO SCH ×2 (09:39→21:19)
[2018-02-24] MEDS: CARVEDILOL 25 MG TABLET PO SCH ×2 (09:39→21:20)
[2018-02-24] MEDS: ASCORBIC ACID 500 MG TABLET PO SCH ×2 (09:39→21:19)
[2018-02-24] MEDS: azaTHIOprine 50 MG TABLET PO SCH ×2 (09:39→21:20)
[2018-02-24] MEDS: DOCUSATE SODIUM 100 MG CAPSULE PO SCH ×2 (09:39→21:20)
[2018-02-24] MEDS: MULTIVITAMIN (CENTRUM) TABLET PO SCH (09:39)
[2018-02-24] MEDS: predniSONE 5 MG TABLET PO SCH (09:39)
[2018-02-24] MEDS: RIVAROXABAN 20 MG TABLET PO SCH (09:39)
[2018-02-24] MEDS: GLYCOPYRROLATE 1 MG TABLET PO SCH (09:40)
[2018-02-24] MEDS: hydrALAZINE 25 MG TABLET PO SCH ×2 (09:40→21:20)
[2018-02-24] MEDS: POTASSIUM CHLORIDE 10 MEQ TABLET PO SCH ×2 (09:40→21:20)
[2018-02-24] MEDS: PYRIDOSTIGMINE 60 MG TABLET PO SCH ×3 (09:40→21:20)
[2018-02-24] MEDS: GABAPENTIN 400 MG CAPSULE PO SCH ×2 (09:40→21:19)
[2018-02-24] MEDS: INSULIN LISPRO 100 UNIT/ML SUBCUT SCH ×4 (09:40→21:20)
[2018-02-24] MEDS ORDERED: SKIN HEALING OINT (AQUAPHOR) 50 GM TUBE TOP PRN (11:09)
[2018-02-24 17:22] LABS: Folate > 24.0 NG/ML (5.4-24.0); Vitamin B12 752 PG/ML (211-911)
[2018-02-24] MEDS: ATORVASTATIN 10 MG TABLET PO SCH (21:20)
[2018-02-24] MEDS: LEVOFLOXACIN INJ 750 MG in PREMIX 1 EACH IV SCH (21:21)
[2018-02-25] MEDS: ALBUTEROL/IPRATROPIUM 3 ML NEB RESP TX SCH ×4 (00:41→19:12)
[2018-02-25] MEDS: CLINDAMYCIN INJ 600 MG in PREMIX 1 EACH IV SCH ×3 (01:00→17:20)
[2018-02-25] MEDS: PYRIDOSTIGMINE 60 MG TABLET PO SCH ×5 (02:14→21:15)
[2018-02-25] MEDS: GLYCOPYRROLATE 1 MG TABLET PO SCH ×3 (02:15→21:14)
[2018-02-25 05:35] LABS: Hematocrit 28.4 VOL% (42.0-52.0); Hemoglobin 8.9 GM/DL (14.0-18.0); Immature Granulocytes % 0.7 %; Immature Granulocytes Absolute 0.03 #; Lymphocytes # 0.4 10*3/uL (1.4-4.0); Lymphocytes % 8.6 % (21.2-54.2); Mean Corpuscular HGB Conc 31.3 GM/DL (32-36); Mean Corpuscular Hemoglobin 33 PG (27-34); Mean Platelet Volume 11.6 FL (9.6-12.0); Monocytes # 0.2 10*3/uL (0.11-0.8); Neutrophils # 3.6 10*3/uL (1.4-7.4); Neutrophils % 85.7 % (38.7-73.9); Platelet Count 133 T/CUMM (130-400); Red Blood Count 2.68 MC/CUMM (3.8-5.5); Red Cell Distribution Width 18.5 % (9.3-17.3); White Blood Count 4.2 T/CUMM (4-12)
[2018-02-25 06:29] LABS: Calcium 8.3 MG/DL (8.5-10.1); Osmolality,Calculated 281.7 MOS/KG (273-304); Potassium 3.1 MMOL/L (3.5-5.1)
[2018-02-25] MEDS: INSULIN LISPRO 100 UNIT/ML SUBCUT SCH ×4 (07:42→21:15)
[2018-02-25] MEDS: MULTIVITAMIN (CENTRUM) TABLET PO SCH (09:44)
[2018-02-25] MEDS: RIVAROXABAN 20 MG TABLET PO SCH (09:44)
[2018-02-25] MEDS: CITALOPRAM 20 MG TABLET PO SCH ×2 (09:44→21:15)
[2018-02-25] MEDS: predniSONE 5 MG TABLET PO SCH (09:44)
[2018-02-25] MEDS: hydrALAZINE 25 MG TABLET PO SCH ×2 (09:45→21:15)
[2018-02-25] MEDS: CARVEDILOL 25 MG TABLET PO SCH ×2 (09:45→21:14)
[2018-02-25] MEDS: methylPREDNISolone SOD SUC 40 MG/1 ML VIAL IV SCH (09:45)
[2018-02-25] MEDS: DOCUSATE SODIUM 100 MG CAPSULE PO SCH ×2 (09:45→21:14)
[2018-02-25] MEDS: ASCORBIC ACID 500 MG TABLET PO SCH ×2 (09:45→21:14)
[2018-02-25] MEDS: POTASSIUM CHLORIDE 10 MEQ TABLET PO SCH ×2 (09:45→21:13)
[2018-02-25] MEDS: GABAPENTIN 400 MG CAPSULE PO SCH ×2 (09:45→21:14)
[2018-02-25] MEDS: azaTHIOprine 50 MG TABLET PO SCH ×2 (09:45→21:13)
[2018-02-25] MEDS: PANTOPRAZOLE 40 MG VIAL IV SCH (10:03)
[2018-02-25] MEDS: FUROSEMIDE 40 MG/4 ML VIAL IV SCH ×2 (10:05→17:16)
[2018-02-25] MEDS: POTASSIUM CHLORIDE RIDER 10 MEQ in PREMIX 1 EACH IV SCH ×4 (13:40→20:24)
[2018-02-25] MEDS: ATORVASTATIN 10 MG TABLET PO SCH (21:14)
[2018-02-25] MEDS: LEVOFLOXACIN INJ 750 MG in PREMIX 1 EACH IV SCH (22:39)
[2018-02-26] MEDS: ALBUTEROL/IPRATROPIUM 3 ML NEB RESP TX SCH ×4 (00:15→23:09)
[2018-02-26] MEDS: CLINDAMYCIN INJ 600 MG in PREMIX 1 EACH IV SCH ×3 (02:31→16:11)
[2018-02-26] MEDS: hydrALAZINE 25 MG TABLET PO SCH ×2 (09:09→21:17)
[2018-02-26] MEDS: ASCORBIC ACID 500 MG TABLET PO SCH ×2 (09:09→21:14)
[2018-02-26] MEDS: CARVEDILOL 25 MG TABLET PO SCH ×2 (09:09→21:12)
[2018-02-26] MEDS: POTASSIUM CHLORIDE 10 MEQ TABLET PO SCH ×2 (09:09→21:13)
[2018-02-26] MEDS: PYRIDOSTIGMINE 60 MG TABLET PO SCH ×4 (09:09→21:17)
[2018-02-26] MEDS: RIVAROXABAN 20 MG TABLET PO SCH (09:09)
[2018-02-26] MEDS: GABAPENTIN 400 MG CAPSULE PO SCH ×2 (09:09→21:13)
[2018-02-26] MEDS: DOCUSATE SODIUM 100 MG CAPSULE PO SCH ×2 (09:09→21:12)
[2018-02-26] MEDS: GLYCOPYRROLATE 1 MG TABLET PO SCH ×2 (09:09→21:17)
[2018-02-26] MEDS: FUROSEMIDE 40 MG/4 ML VIAL IV SCH ×2 (09:10→16:11)
[2018-02-26] MEDS: INSULIN LISPRO 100 UNIT/ML SUBCUT SCH ×4 (09:10→21:17)
[2018-02-26] MEDS: MULTIVITAMIN (CENTRUM) TABLET PO SCH (09:10)
[2018-02-26] MEDS: PANTOPRAZOLE 40 MG VIAL IV SCH (09:10)
[2018-02-26] MEDS: CITALOPRAM 20 MG TABLET PO SCH ×2 (09:10→21:16)
[2018-02-26] MEDS: azaTHIOprine 50 MG TABLET PO SCH ×2 (09:10→21:11)
[2018-02-26] MEDS: methylPREDNISolone SOD SUC 40 MG/1 ML VIAL IV SCH (09:11)
[2018-02-26 09:46] LABS: Basophils % 0.3 % (0.0-0.8); Eosinophils % 0.8 % (0.00-10.9); Hemoglobin 9.5 GM/DL (14.0-18.0); Immature Granulocytes % 1.1 %; Immature Granulocytes Absolute 0.04 #; Lymphocytes # 0.6 10*3/uL (1.4-4.0); Mean Corpuscular HGB Conc 33.9 GM/DL (32-36); Mean Corpuscular Hemoglobin 35 PG (27-34); Mean Corpuscular Volume 102.6 FL (87-102); Mean Platelet Volume 12.2 FL (9.6-12.0); Monocytes # 0.3 10*3/uL (0.11-0.8); Monocytes % 7.2 % (1.7-12.7); NRBC # 0.06 10*3/uL; Neutrophils # 2.7 10*3/uL (1.4-7.4); Neutrophils % 74.6 % (38.7-73.9); Platelet Count 115 T/CUMM (130-400); Red Blood Count 2.73 MC/CUMM (3.8-5.5); Red Cell Distribution Width 18.6 % (9.3-17.3); White Blood Count 3.6 T/CUMM (4-12)
[2018-02-26 10:14] LABS: Calcium 8.3 MG/DL (8.5-10.1); Osmolality,Calculated 278.7 MOS/KG (273-304); Potassium 3.1 MMOL/L (3.5-5.1)
[2018-02-26] MEDS: PANTOPRAZOLE 40 MG TABLET PO SCH (11:47)
[2018-02-26] MEDS: ATORVASTATIN 10 MG TABLET PO SCH (21:13)
[2018-02-26] MEDS: LEVOFLOXACIN INJ 750 MG in PREMIX 1 EACH IV SCH (22:03)
[2018-02-27] MEDS: ALBUTEROL/IPRATROPIUM 3 ML NEB RESP TX SCH ×4 (00:12→19:23)
[2018-02-27] MEDS: CLINDAMYCIN INJ 600 MG in PREMIX 1 EACH IV SCH ×3 (00:57→17:45)
[2018-02-27] MEDS: INSULIN LISPRO 100 UNIT/ML SUBCUT SCH ×4 (07:30→22:03)
[2018-02-27] MEDS: FUROSEMIDE 40 MG/4 ML VIAL IV SCH ×2 (08:55→15:38)
[2018-02-27] MEDS: hydrALAZINE 25 MG TABLET PO SCH ×2 (09:37→20:45)
[2018-02-27] MEDS: GLYCOPYRROLATE 1 MG TABLET PO SCH ×2 (09:37→20:44)
[2018-02-27] MEDS: RIVAROXABAN 20 MG TABLET PO SCH (09:37)
[2018-02-27] MEDS: methylPREDNISolone SOD SUC 40 MG/1 ML VIAL IV SCH (09:45)
[2018-02-27] MEDS: ASCORBIC ACID 500 MG TABLET PO SCH ×2 (09:46→20:44)
[2018-02-27] MEDS: PANTOPRAZOLE 40 MG TABLET PO SCH (09:47)
[2018-02-27] MEDS: azaTHIOprine 50 MG TABLET PO SCH ×2 (09:47→20:45)
[2018-02-27] MEDS: POTASSIUM CHLORIDE 10 MEQ TABLET PO SCH ×2 (09:47→20:44)
[2018-02-27] MEDS: PYRIDOSTIGMINE 60 MG TABLET PO SCH ×4 (09:47→20:44)
[2018-02-27] MEDS: DOCUSATE SODIUM 100 MG CAPSULE PO SCH ×2 (09:47→20:44)
[2018-02-27] MEDS: CARVEDILOL 25 MG TABLET PO SCH ×2 (09:47→20:45)
[2018-02-27] MEDS: MULTIVITAMIN (CENTRUM) TABLET PO SCH (09:48)
[2018-02-27] MEDS: CITALOPRAM 20 MG TABLET PO SCH ×2 (09:48→20:44)
[2018-02-27] MEDS: GABAPENTIN 400 MG CAPSULE PO SCH ×2 (09:48→20:44)
[2018-02-27 13:13] LABS: Calcium 8.3 MG/DL (8.5-10.1); Osmolality,Calculated 275.8 MOS/KG (273-304); Potassium 2.9 MMOL/L (3.5-5.1)
[2018-02-27] MEDS: ATORVASTATIN 10 MG TABLET PO SCH (20:44)
[2018-02-27] MEDS: LEVOFLOXACIN INJ 750 MG in PREMIX 1 EACH IV SCH (23:46)
[2018-02-28] MEDS: ALBUTEROL/IPRATROPIUM 3 ML NEB RESP TX SCH ×4 (00:14→19:29)
[2018-02-28] MEDS: CLINDAMYCIN INJ 600 MG in PREMIX 1 EACH IV SCH ×2 (01:29→09:35)
[2018-02-28 07:26] LABS: Eosinophils # 0.1 10*3/uL (0.0-0.87); Eosinophils % 1.3 % (0.00-10.9); Hematocrit 30.2 VOL% (42.0-52.0); Hemoglobin 9.8 GM/DL (14.0-18.0); Immature Granulocytes % 0.6 %; Immature Granulocytes Absolute 0.03 #; Lymphocytes # 0.6 10*3/uL (1.4-4.0); Mean Corpuscular HGB Conc 32.5 GM/DL (32-36); Mean Corpuscular Hemoglobin 34 PG (27-34); Mean Corpuscular Volume 103.8 FL (87-102); Mean Platelet Volume 11.5 FL (9.6-12.0); Monocytes # 0.3 10*3/uL (0.11-0.8); Monocytes % 5.3 % (1.7-12.7); Neutrophils # 3.8 10*3/uL (1.4-7.4); Neutrophils % 80.8 % (38.7-73.9); Platelet Count 137 T/CUMM (130-400); Red Blood Count 2.91 MC/CUMM (3.8-5.5); Red Cell Distribution Width 18.3 % (9.3-17.3); White Blood Count 4.7 T/CUMM (4-12)
[2018-02-28 07:56] LABS: Calcium 8.2 MG/DL (8.5-10.1); Osmolality,Calculated 277.8 MOS/KG (273-304); Potassium 2.7 MMOL/L (3.5-5.1)
[2018-02-28] MEDS: INSULIN LISPRO 100 UNIT/ML SUBCUT SCH ×4 (08:38→20:45)
[2018-02-28] MEDS: PANTOPRAZOLE 40 MG TABLET PO SCH (09:27)
[2018-02-28] MEDS: GLYCOPYRROLATE 1 MG TABLET PO SCH ×2 (09:28→20:42)
[2018-02-28] MEDS: ASCORBIC ACID 500 MG TABLET PO SCH ×2 (09:28→20:43)
[2018-02-28] MEDS: MULTIVITAMIN (CENTRUM) TABLET PO SCH (09:29)
[2018-02-28] MEDS: GABAPENTIN 400 MG CAPSULE PO SCH ×2 (09:29→20:44)
[2018-02-28] MEDS: CITALOPRAM 20 MG TABLET PO SCH ×2 (09:30→20:42)
[2018-02-28] MEDS: azaTHIOprine 50 MG TABLET PO SCH ×2 (09:31→20:42)
[2018-02-28] MEDS: RIVAROXABAN 20 MG TABLET PO SCH (09:31)
[2018-02-28] MEDS: PYRIDOSTIGMINE 60 MG TABLET PO SCH ×4 (09:32→20:44)
[2018-02-28] MEDS: DOCUSATE SODIUM 100 MG CAPSULE PO SCH ×2 (09:32→20:45)
[2018-02-28] MEDS: CARVEDILOL 25 MG TABLET PO SCH ×2 (09:33→20:44)
[2018-02-28] MEDS: hydrALAZINE 25 MG TABLET PO SCH ×2 (09:33→20:45)
[2018-02-28] MEDS: POTASSIUM CHLORIDE 20 MEQ TABLET PO SCH ×3 (09:34→16:54)
[2018-02-28] MEDS: FUROSEMIDE 40 MG/4 ML VIAL IV SCH (09:36)
[2018-02-28] MEDS: FUROSEMIDE 40 MG TABLET PO SCH (16:53)
[2018-02-28] MEDS: ATORVASTATIN 10 MG TABLET PO SCH (20:43)
[2018-02-28] MEDS ORDERED: LEVOFLOXACIN 500 MG TABLET PO SCH (21:00)
[2018-02-28] MEDS ORDERED: POTASSIUM CHLORIDE 20 MEQ TABLET PO SCH (21:00)
[2018-03-01] MEDS: ALBUTEROL/IPRATROPIUM 3 ML NEB RESP TX SCH ×3 (00:06→12:07)
[2018-03-01 07:04] LABS: Calcium 8.2 MG/DL (8.5-10.1); Osmolality,Calculated 273.8 MOS/KG (273-304); Potassium 3.2 MMOL/L (3.5-5.1)
[2018-03-01] MEDS: INSULIN LISPRO 100 UNIT/ML SUBCUT SCH ×2 (07:55→13:06)
[2018-03-01] MEDS ORDERED: predniSONE 5 MG TABLET PO SCH (09:00)
[2018-03-01] MEDS ORDERED: POTASSIUM CHLORIDE 20 MEQ TABLET PO ONE (09:00)
[2018-03-01] MEDS: hydrALAZINE 25 MG TABLET PO SCH (09:26)
[2018-03-01] MEDS: DOCUSATE SODIUM 100 MG CAPSULE PO SCH (09:27)
[2018-03-01] MEDS: azaTHIOprine 50 MG TABLET PO SCH (09:27)
[2018-03-01] MEDS: CITALOPRAM 20 MG TABLET PO SCH (09:28)
[2018-03-01] MEDS: MULTIVITAMIN (CENTRUM) TABLET PO SCH (09:28)
[2018-03-01] MEDS: GLYCOPYRROLATE 1 MG TABLET PO SCH (09:28)
[2018-03-01] MEDS: FUROSEMIDE 40 MG TABLET PO SCH (09:29)
[2018-03-01] MEDS: POTASSIUM CHLORIDE 10 MEQ TABLET PO SCH (09:30)
[2018-03-01] MEDS: PYRIDOSTIGMINE 60 MG TABLET PO SCH ×2 (09:30→14:16)
[2018-03-01] MEDS: PANTOPRAZOLE 40 MG TABLET PO SCH (09:31)
[2018-03-01] MEDS: GABAPENTIN 400 MG CAPSULE PO SCH (09:32)
[2018-03-01] MEDS: CARVEDILOL 25 MG TABLET PO SCH (09:32)
[2018-03-01] MEDS: RIVAROXABAN 20 MG TABLET PO SCH (09:32)
[2018-03-01] MEDS: ASCORBIC ACID 500 MG TABLET PO SCH (09:35)
[2018-03-01 12:04] VITALS: BP 107/61
[2018-03-21] MEDS ORDERED: CYANOCOBALAMIN 1000 MCG/1 ML VIAL IM SCH (09:00)
== END 2018-03-01 15:18 | disposition home health service (06) | DRG 193 ==
LOC: EDUNIT# → N.ED 17:23 → SUATTDRO 20:58 → N.EDINP 20:58 → N.CC 02-22 02:23 → N.2E 02-24 16:23
PROVIDERS: ADMIT Internal Medicine; ATTEND Internal Medicine

== ENCOUNTER 2018-05-09 17:12 | Inpatient (IN) ==
[2018-05-09] MEDS ORDERED: EPINEPHrine 1 MG/10 ML SYRINGE ONE (17:16)
[2018-05-09] MEDS ORDERED: methylPREDNISolone SOD SUC 125 MG/2 ML VIAL IV STA (17:28)
[2018-05-09] MEDS ORDERED: LEVOFLOXACIN INJ 750 MG in PREMIX 1 EACH IV STA (17:28)
[2018-05-09] MEDS ORDERED: ETOMIDATE 20 MG/10 ML VIAL IV ONE (17:29)
[2018-05-09] MEDS ORDERED: ROCURONIUM 100 MG/10 ML VIAL IV ONE (17:29)
[2018-05-09] MEDS ORDERED: ALBUTEROL NEB SOLN 5 MG/ML 20 ML/BOTTLE RESP TX SCH (17:30)
[2018-05-09] MEDS ORDERED: FUROSEMIDE 40 MG/4 ML VIAL IV STA (17:31)
[2018-05-09 17:41] LABS: Basophils % 0.3 % (0.0-0.8); Eosinophils # 0.1 10*3/uL (0.0-0.87); Eosinophils % 1.3 % (0.00-10.9); Hematocrit 34.9 VOL% (42.0-52.0); Hemoglobin 10.3 GM/DL (14.0-18.0); Immature Granulocytes % 0.8 %; Immature Granulocytes Absolute 0.09 #; Lymphocytes # 0.7 10*3/uL (1.4-4.0); Lymphocytes % 6.2 % (21.2-54.2); Mean Corpuscular HGB Conc 29.5 GM/DL (32-36); Mean Corpuscular Hemoglobin 33 PG (27-34); Mean Corpuscular Volume 111.9 FL (87-102); Mean Platelet Volume 11.5 FL (9.6-12.0); Monocytes # 0.9 10*3/uL (0.11-0.8); Monocytes % 8.3 % (1.7-12.7); Neutrophils # 8.9 10*3/uL (1.4-7.4); Neutrophils % 83.1 % (38.7-73.9); Platelet Count 145 T/CUMM (130-400); Red Blood Count 3.12 MC/CUMM (3.8-5.5); Red Cell Distribution Width 19.7 % (9.3-17.3); White Blood Count 10.7 T/CUMM (4-12)
[2018-05-09 17:49] LABS: INR 1.2; PT Patient Result 12.7 SECS; Partial Thromboplastin Time 29.4 SECS (0-40)
[2018-05-09 18:05] LABS: Alanine Aminotransferase 13 U/L (16-61); Albumin 3.5 G/DL (3.4-5.0); Alkaline Phosphatase 84 U/L (45-117); Aspartate Amino Transferase 17 U/L (0-37); Blood Urea Nitrogen 7 MG/DL (7-18); Calcium 8.3 MG/DL (8.5-10.1); Glucose 96 MG/DL (74-106); Osmolality,Calculated 280.1 MOS/KG (273-304); Potassium 4.5 MMOL/L (3.5-5.1); Sodium 142 MMOL/L (136-145); Total Protein 7.2 G/DL (6.4-8.3); Troponin I 0.034 NG/ML (0.00-0.045)
[2018-05-09 18:25] LABS: Apearance,Urine CLEAR (Clear); Bacteria,Urine Occasional /HPF (Few); Bilirubin,Urine Negative (Negative); Blood, Urine Negative (Negative); Glucose,Urine (UA) Negative (Negative); Ketones,Urine 80 mg/dL (Negative); Mucus,Urine Occasional /LPF (Occasional); Nitrite,Urine Negative (Negative); Protein,Urine 30 MG/DL; Squamous Epithelial Cell,Urine Occasional /HPF (0-10); Transitional Epi Cells,Urine Occasional /HPF (<1); Urine Color Yellow (Yellow); Urine Specific Gravity 1.016 (1.001-1.035); WBC,Urine <1 /HPF (0-6)
[2018-05-09 18:31] LABS: Barbiturates Screen,Urine Negative (Negative); Benzodiazepines Screen,Urine Negative (Negative); Cannabinoid Screen,Urine Negative (Negative); Opiate Screen,Urine Positive (Negative); Phencyclidine Screen,Urine Negative (Negative)
[2018-05-09] MEDS: PROPOFOL 1,000 MG/100 ML BOTTLE IV SCH (18:31)
[2018-05-09] MEDS ORDERED: SODIUM CHLORIDE 0.9% 1,000 ML IV STA (18:31)
[2018-05-09 18:34] LABS: ABG Base Excess -3.4 MMOL/L (-2.5-2.5); ABG HCO3 21.6 MMOL/L (20-26); ABG Oxygen Saturation 98.4 % (95-100); ABG TCO2 24.9 MMOL/L (23-27)
[2018-05-09 18:37] LABS: ABG PH 7.179 (7.35-7.45)
[2018-05-09 18:38] LABS: ABG PCO2 71.3 MM HG (35-48)
[2018-05-09] MEDS ORDERED: ALBUTEROL 2.5 MG/3 ML NEB RESP TX PRN (19:04)
[2018-05-09] MEDS ORDERED: ONDANSETRON 4 MG/2 ML VIAL IV PRN (19:04)
[2018-05-09] MEDS ORDERED: ACETAMINOPHEN 325 MG TABLET PO PRN (19:12)
[2018-05-09] MEDS ORDERED: PROPOFOL 1,000 MG/100 ML BOTTLE IV SCH (19:30)
[2018-05-09] MEDS ORDERED: MORPHINE 4 MG/1 ML VIAL IV ONE (20:08)
[2018-05-09 20:17] LABS: Folate > 24.0 NG/ML (5.4-24.0); Vitamin B12 431 PG/ML (211-911)
[2018-05-09] MEDS ORDERED: LORazepam 2 MG/1 ML VIAL IV PRN (20:30)
[2018-05-09] MEDS ORDERED: DEXTROSE 50% 25 GM/50 ML VIAL IV PRN (20:41)
[2018-05-09] MEDS ORDERED: GLUCAGON 1 MG VIAL IM PRN (20:41)
[2018-05-09 20:44] LABS: Basophils % 0.2 % (0.0-0.8); Eosinophils % 0.1 % (0.00-10.9); Hematocrit 30.5 VOL% (42.0-52.0); Hemoglobin 8.9 GM/DL (14.0-18.0); Immature Granulocytes % 1.3 %; Immature Granulocytes Absolute 0.26 #; Lymphocytes # 0.2 10*3/uL (1.4-4.0); Mean Corpuscular HGB Conc 29.2 GM/DL (32-36); Mean Corpuscular Hemoglobin 33 PG (27-34); Mean Corpuscular Volume 112.1 FL (87-102); Mean Platelet Volume 11.8 FL (9.6-12.0); Monocytes # 1.2 10*3/uL (0.11-0.8); Monocytes % 5.9 % (1.7-12.7); NRBC # 0.02 10*3/uL; Neutrophils % 91.5 % (38.7-73.9); Platelet Count 155 T/CUMM (130-400); Red Blood Count 2.72 MC/CUMM (3.8-5.5); Red Cell Distribution Width 19.6 % (9.3-17.3); White Blood Count 19.6 T/CUMM (4-12)
[2018-05-09] MEDS ORDERED: ENOXAPARIN 40 MG/0.4 ML SYRINGE SUBCUT SCH (21:00)
[2018-05-09] MEDS ORDERED: AZATHIOPRINE 100 MG PO SCH (21:00)
[2018-05-09] MEDS: PANTOPRAZOLE 40 MG VIAL IV SCH (21:22)
[2018-05-09 21:23] LABS: Lymphocytes 3 % (20-55); Platelet Estimate Decreased; Polychromasia Few; Segmented Neutrophils 95 % (50-85); Total Cells Counted 100
[2018-05-09] MEDS: MEROPENEM 1,000 MG in SYRINGE 1 EACH IV SCH (21:23)
[2018-05-09] MEDS: INSULIN LISPRO 100 UNIT/ML SUBCUT SCH (21:47)
[2018-05-09 21:48] LABS: Sedimentation Rate-Westergren 43 MM/HR (0-20)
[2018-05-09 21:51] LABS: ABG Base Excess 0.9 MMOL/L (-2.5-2.5); ABG HCO3 25.3 MMOL/L (20-26); ABG PCO2 44.2 MM HG (35-48); ABG PH 7.381 (7.35-7.45); ABG TCO2 24.4 MMOL/L (23-27)
[2018-05-09] MEDS: SODIUM CHLORIDE 0.9% 1,000 ML IV SCH (22:07)
[2018-05-09] MEDS: CITALOPRAM 20 MG TABLET PO SCH (22:40)
[2018-05-09] MEDS: ASCORBIC ACID 500 MG TABLET PO SCH (22:40)
[2018-05-09] MEDS: PYRIDOSTIGMINE 60 MG TABLET PO SCH (22:41)
[2018-05-09] MEDS: GLYCOPYRROLATE 1 MG TABLET PO SCH (22:41)
[2018-05-09] MEDS: GABAPENTIN 400 MG CAPSULE PO SCH (22:42)
[2018-05-09] MEDS: ATORVASTATIN 10 MG TABLET PO SCH (22:42)
[2018-05-10] MEDS: ALBUTEROL/IPRATROPIUM 3 ML NEB RESP TX SCH ×4 (00:19→19:00)
[2018-05-10] MEDS: CARVEDILOL 25 MG TABLET PO SCH ×3 (01:58→18:01)
[2018-05-10] MEDS: methylPREDNISolone SOD SUC 40 MG/1 ML VIAL IV SCH ×3 (02:42→23:35)
[2018-05-10] MEDS: PROPOFOL 1,000 MG/100 ML BOTTLE IV SCH ×4 (02:43→23:14)
[2018-05-10 04:18] LABS: Basophils % 0.1 % (0.0-0.8); Hematocrit 28.8 VOL% (42.0-52.0); Hemoglobin 8.7 GM/DL (14.0-18.0); Immature Granulocytes % 1.1 %; Immature Granulocytes Absolute 0.16 #; Lymphocytes # 0.2 10*3/uL (1.4-4.0); Lymphocytes % 1.2 % (21.2-54.2); Mean Corpuscular HGB Conc 30.2 GM/DL (32-36); Mean Corpuscular Hemoglobin 33 PG (27-34); Mean Corpuscular Volume 107.9 FL (87-102); Mean Platelet Volume 12.3 FL (9.6-12.0); Monocytes # 0.4 10*3/uL (0.11-0.8); Monocytes % 2.7 % (1.7-12.7); NRBC # 0.03 10*3/uL; Neutrophils % 94.9 % (38.7-73.9); Platelet Count 143 T/CUMM (130-400); Red Blood Count 2.67 MC/CUMM (3.8-5.5); Red Cell Distribution Width 19.5 % (9.3-17.3); White Blood Count 14.7 T/CUMM (4-12)
[2018-05-10 04:27] LABS: ABG Base Excess -0.9 MMOL/L (-2.5-2.5); ABG HCO3 23.7 MMOL/L (20-26); ABG PCO2 44.5 MM HG (35-48); ABG PH 7.353 (7.35-7.45); ABG TCO2 23.2 MMOL/L (23-27); Allen Test Positive; Pt O2 Delivery Device Ventilator
[2018-05-10 04:52] LABS: Calcium 8.2 MG/DL (8.5-10.1); Osmolality,Calculated 280.3 MOS/KG (273-304); Potassium 4.5 MMOL/L (3.5-5.1); Risk Ratio 2.12; Thyroid Stimulating Hormone 0.511 uIU/ml (0.358-3.74); Total Protein 6.2 G/DL (6.4-8.3); VLDL CHOLESTEROL 19.2 MG/DL
[2018-05-10 05:14] LABS: Band Neutrophils 3 % (0-10); Lymphocytes 2 % (20-55); Platelet Estimate Adequate; Segmented Neutrophils 92 % (50-85); Total Cells Counted 100
[2018-05-10 05:15] LABS: Giant Platelets Few; Hypochromasia 1+; Ovalocytes Slight
[2018-05-10] MEDS: SODIUM CHLORIDE 0.9% 1,000 ML IV SCH ×2 (06:59→16:19)
[2018-05-10 08:25] LABS: Hemoglobin A1 (Alkaline) 97.7 % (96.5-98.5); Hemoglobin A2 (Alkaline) 2.3 % (1.5-3.5)
[2018-05-10] MEDS: INSULIN LISPRO 100 UNIT/ML SUBCUT SCH ×4 (08:43→21:39)
[2018-05-10] MEDS ORDERED: predniSONE 5 MG TABLET PO SCH (09:00)
[2018-05-10] MEDS: ASCORBIC ACID 500 MG TABLET PO SCH ×2 (09:25→21:49)
[2018-05-10] MEDS: PYRIDOSTIGMINE 60 MG TABLET PO SCH ×4 (09:25→21:50)
[2018-05-10] MEDS: CITALOPRAM 20 MG TABLET PO SCH ×2 (09:25→21:48)
[2018-05-10] MEDS: RIVAROXABAN 20 MG TABLET PO SCH (09:25)
[2018-05-10] MEDS: MULTIVITAMIN (CENTRUM) TABLET PO SCH (09:25)
[2018-05-10] MEDS: GABAPENTIN 400 MG CAPSULE PO SCH ×2 (09:25→21:50)
[2018-05-10] MEDS: GLYCOPYRROLATE 1 MG TABLET PO SCH ×2 (09:25→21:49)
[2018-05-10] MEDS: MEROPENEM 1,000 MG in SYRINGE 1 EACH IV SCH ×2 (09:34→23:42)
[2018-05-10] MEDS ORDERED: IMMUNE GLOBULIN 10% 40 GM, IMMUNE GLOBULIN 10% 5 GM in PREMIX 1 EACH IV SCH (18:30)
[2018-05-10] MEDS: IMMUNE GLOBULIN 10% 40 GM, IMMUNE GLOBULIN 10% 5 GM in PREMIX 1 EACH IV SCH (19:55)
[2018-05-10] MEDS: ATORVASTATIN 10 MG TABLET PO SCH (21:49)
[2018-05-10] MEDS: PANTOPRAZOLE 40 MG VIAL IV SCH (23:35)
[2018-05-11] MEDS: ALBUTEROL/IPRATROPIUM 3 ML NEB RESP TX SCH ×4 (01:08→19:06)
[2018-05-11 04:12] LABS: ABG Base Excess 2.4 MMOL/L (-2.5-2.5); ABG HCO3 26.6 MMOL/L (20-26); ABG PCO2 44.2 MM HG (35-48); ABG PH 7.401 (7.35-7.45)
[2018-05-11 04:51] LABS: Calcium 7.8 MG/DL (8.5-10.1); Osmolality,Calculated 285.3 MOS/KG (273-304); Potassium 4.1 MMOL/L (3.5-5.1)
[2018-05-11 04:59] LABS: Hematocrit 29.2 VOL% (42.0-52.0); Hemoglobin 8.7 GM/DL (14.0-18.0); Immature Granulocytes % 0.6 %; Immature Granulocytes Absolute 0.06 #; Lymphocytes # 0.2 10*3/uL (1.4-4.0); Lymphocytes % 1.8 % (21.2-54.2); Mean Corpuscular HGB Conc 29.8 GM/DL (32-36); Mean Corpuscular Hemoglobin 33 PG (27-34); Mean Corpuscular Volume 110.6 FL (87-102); Mean Platelet Volume 13.7 FL (9.6-12.0); Monocytes # 0.4 10*3/uL (0.11-0.8); Monocytes % 3.6 % (1.7-12.7); Neutrophils # 9.1 10*3/uL (1.4-7.4); Platelet Count 82 T/CUMM (130-400); Red Blood Count 2.64 MC/CUMM (3.8-5.5); Red Cell Distribution Width 19.9 % (9.3-17.3); White Blood Count 9.7 T/CUMM (4-12)
[2018-05-11] MEDS: methylPREDNISolone SOD SUC 40 MG/1 ML VIAL IV SCH ×3 (05:38→20:31)
[2018-05-11 06:52] LABS: Band Neutrophils 2 % (0-10); Lymphocytes 2 % (20-55); Platelet Estimate Decreased; Segmented Neutrophils 93 % (50-85); Total Cells Counted 100
[2018-05-11 06:53] LABS: Hypochromasia 2+
[2018-05-11 06:54] LABS: Anisocytosis 3+; Macrocytosis 2+; Microcytosis 1+; Ovalocytes 2+; Target Cells Few
[2018-05-11] MEDS: SODIUM CHLORIDE 0.9% 1,000 ML IV SCH ×5 (07:09→22:37)
[2018-05-11] MEDS: PROPOFOL 1,000 MG/100 ML BOTTLE IV SCH ×4 (07:11→23:58)
[2018-05-11] MEDS: INSULIN LISPRO 100 UNIT/ML SUBCUT SCH ×4 (07:46→20:31)
[2018-05-11] MEDS: MEROPENEM 1,000 MG in SODIUM CHLORIDE 0.9% 100 ML IV SCH ×2 (08:57→17:21)
[2018-05-11] MEDS: CARVEDILOL 25 MG TABLET PO SCH ×2 (09:02→17:21)
[2018-05-11] MEDS: ASCORBIC ACID 500 MG TABLET PO SCH ×2 (09:02→20:30)
[2018-05-11] MEDS: MULTIVITAMIN (CENTRUM) TABLET PO SCH (09:02)
[2018-05-11] MEDS: GLYCOPYRROLATE 1 MG TABLET PO SCH ×2 (09:02→20:30)
[2018-05-11] MEDS: PYRIDOSTIGMINE 60 MG TABLET PO SCH ×4 (09:03→20:31)
[2018-05-11] MEDS: RIVAROXABAN 20 MG TABLET PO SCH (09:03)
[2018-05-11] MEDS: CITALOPRAM 20 MG TABLET PO SCH ×2 (09:03→20:30)
[2018-05-11] MEDS: GABAPENTIN 400 MG CAPSULE PO SCH ×2 (09:03→20:31)
[2018-05-11] MEDS: MORPHINE 4 MG/1 ML VIAL IV PRN ×4 (13:30→23:58)
[2018-05-11] MEDS: IMMUNE GLOBULIN 10% 40 GM, IMMUNE GLOBULIN 10% 5 GM in PREMIX 1 EACH IV SCH (18:28)
[2018-05-11] MEDS: PANTOPRAZOLE 40 MG VIAL IV SCH (20:31)
[2018-05-11] MEDS: ATORVASTATIN 10 MG TABLET PO SCH (20:31)
[2018-05-12] MEDS: ALBUTEROL/IPRATROPIUM 3 ML NEB RESP TX SCH ×4 (00:25→19:39)
[2018-05-12] MEDS: MEROPENEM 1,000 MG in SODIUM CHLORIDE 0.9% 100 ML IV SCH ×3 (02:16→18:23)
[2018-05-12 03:49] LABS: ABG Base Excess 2.1 MMOL/L (-2.5-2.5); ABG HCO3 26.4 MMOL/L (20-26); ABG Oxygen Saturation 99.2 % (95-100); ABG PCO2 47.9 MM HG (35-48); ABG PH 7.371 (7.35-7.45); ABG TCO2 26.3 MMOL/L (23-27)
[2018-05-12 04:13] LABS: Hematocrit 22.2 VOL% (42.0-52.0); Hemoglobin 6.8 GM/DL (14.0-18.0); Immature Granulocytes % 0.5 %; Immature Granulocytes Absolute 0.04 #; Lymphocytes # 0.1 10*3/uL (1.4-4.0); Lymphocytes % 1.6 % (21.2-54.2); Mean Corpuscular HGB Conc 30.6 GM/DL (32-36); Mean Corpuscular Hemoglobin 33 PG (27-34); Mean Corpuscular Volume 108.3 FL (87-102); Mean Platelet Volume 12.6 FL (9.6-12.0); Monocytes # 0.2 10*3/uL (0.11-0.8); Monocytes % 2.6 % (1.7-12.7); Neutrophils # 8.4 10*3/uL (1.4-7.4); Neutrophils % 95.3 % (38.7-73.9); Red Blood Count 2.05 MC/CUMM (3.8-5.5); Red Cell Distribution Width 18.9 % (9.3-17.3); White Blood Count 8.8 T/CUMM (4-12)
[2018-05-12 04:17] LABS: Platelet Count 86 T/CUMM (130-400)
[2018-05-12 04:57] LABS: Calcium 7.9 MG/DL (8.5-10.1); Osmolality,Calculated 293.1 MOS/KG (273-304); Potassium 4.3 MMOL/L (3.5-5.1)
[2018-05-12 05:12] LABS: Prealbumin 15.3 MG/DL (20-40)
[2018-05-12 05:24] LABS: Hypochromasia 1+; Lymphocytes 2 % (20-55); Ovalocytes Slight; Platelet Estimate Decreased; Segmented Neutrophils 96 % (50-85); Total Cells Counted 100
[2018-05-12 05:25] LABS: Microcytosis 1+
[2018-05-12] MEDS ORDERED: SODIUM CHLORIDE 0.9% 1,000 ML IV PRN ×2 (05:36→07:23)
[2018-05-12] MEDS: methylPREDNISolone SOD SUC 40 MG/1 ML VIAL IV SCH ×3 (06:11→20:37)
[2018-05-12] MEDS: PROPOFOL 1,000 MG/100 ML BOTTLE IV SCH ×3 (06:46→23:40)
[2018-05-12] MEDS: INSULIN LISPRO 100 UNIT/ML SUBCUT SCH ×4 (09:11→20:25)
[2018-05-12] MEDS: ASCORBIC ACID 500 MG TABLET PO SCH ×2 (10:00→20:37)
[2018-05-12] MEDS: CITALOPRAM 20 MG TABLET PO SCH ×2 (10:00→20:37)
[2018-05-12] MEDS: GLYCOPYRROLATE 1 MG TABLET PO SCH ×2 (10:00→20:37)
[2018-05-12] MEDS: CARVEDILOL 25 MG TABLET PO SCH ×2 (10:01→18:23)
[2018-05-12] MEDS: PYRIDOSTIGMINE 60 MG TABLET PO SCH ×4 (10:01→20:37)
[2018-05-12] MEDS: GABAPENTIN 400 MG CAPSULE PO SCH ×2 (10:01→20:37)
[2018-05-12] MEDS: RIVAROXABAN 20 MG TABLET PO SCH (10:01)
[2018-05-12] MEDS: MULTIVITAMIN (CENTRUM) TABLET PO SCH (10:01)
[2018-05-12] MEDS: FUROSEMIDE 40 MG/4 ML VIAL IV SCH (11:06)
[2018-05-12] MEDS: IMMUNE GLOBULIN 10% 40 GM, IMMUNE GLOBULIN 10% 5 GM in PREMIX 1 EACH IV SCH (18:25)
[2018-05-12] MEDS: ATORVASTATIN 10 MG TABLET PO SCH (20:37)
[2018-05-12] MEDS: PANTOPRAZOLE 40 MG VIAL IV SCH (20:37)
[2018-05-13] MEDS: ALBUTEROL/IPRATROPIUM 3 ML NEB RESP TX SCH ×4 (00:32→18:55)
[2018-05-13] MEDS: MEROPENEM 1,000 MG in SODIUM CHLORIDE 0.9% 100 ML IV SCH ×3 (02:07→16:50)
[2018-05-13] MEDS: MORPHINE 4 MG/1 ML VIAL IV PRN (02:07)
[2018-05-13 03:50] LABS: ABG Base Excess 4.7 MMOL/L (-2.5-2.5); ABG HCO3 28.7 MMOL/L (20-26); ABG Oxygen Saturation 98.1 % (95-100); ABG PCO2 47.1 MM HG (35-48); ABG PH 7.415 (7.35-7.45); ABG TCO2 26.8 MMOL/L (23-27); Allen Test Positive; Pt O2 Delivery Device Ventilator
[2018-05-13] MEDS: methylPREDNISolone SOD SUC 40 MG/1 ML VIAL IV SCH ×3 (05:30→20:22)
[2018-05-13 05:40] LABS: Hematocrit 25.6 VOL% (42.0-52.0); Hemoglobin 8.1 GM/DL (14.0-18.0); Immature Granulocytes % 0.8 %; Immature Granulocytes Absolute 0.05 #; Lymphocytes # 0.1 10*3/uL (1.4-4.0); Lymphocytes % 2.2 % (21.2-54.2); Mean Corpuscular HGB Conc 31.6 GM/DL (32-36); Mean Corpuscular Hemoglobin 32 PG (27-34); Mean Corpuscular Volume 100.4 FL (87-102); Mean Platelet Volume 12.7 FL (9.6-12.0); Monocytes # 0.2 10*3/uL (0.11-0.8); Neutrophils # 5.7 10*3/uL (1.4-7.4); Platelet Count 83 T/CUMM (130-400); Red Blood Count 2.55 MC/CUMM (3.8-5.5); Red Cell Distribution Width 19.9 % (9.3-17.3)
[2018-05-13 06:02] LABS: Band Neutrophils 1 % (0-10); Calcium 7.6 MG/DL (8.5-10.1); Lymphocytes 3 % (20-55); Nucleated Red Blood Cells 1 (0-5); Osmolality,Calculated 287.5 MOS/KG (273-304); Potassium 4.5 MMOL/L (3.5-5.1); Segmented Neutrophils 92 % (50-85); Total Cells Counted 100
[2018-05-13 06:03] LABS: Hypochromasia 1+; Macrocytosis 1+; Ovalocytes Slight; Platelet Estimate Decreased
[2018-05-13] MEDS: INSULIN LISPRO 100 UNIT/ML SUBCUT SCH ×4 (08:22→20:23)
[2018-05-13] MEDS: MULTIVITAMIN (CENTRUM) TABLET PO SCH (08:23)
[2018-05-13] MEDS: PYRIDOSTIGMINE 60 MG TABLET PO SCH ×4 (08:23→20:23)
[2018-05-13] MEDS: ASCORBIC ACID 500 MG TABLET PO SCH ×2 (08:23→20:22)
[2018-05-13] MEDS: RIVAROXABAN 20 MG TABLET PO SCH (08:23)
[2018-05-13] MEDS: CITALOPRAM 20 MG TABLET PO SCH ×2 (08:23→20:22)
[2018-05-13] MEDS: CARVEDILOL 25 MG TABLET PO SCH ×2 (08:23→16:50)
[2018-05-13] MEDS: GABAPENTIN 400 MG CAPSULE PO SCH ×2 (08:23→20:23)
[2018-05-13] MEDS: GLYCOPYRROLATE 1 MG TABLET PO SCH ×2 (08:23→20:22)
[2018-05-13] MEDS: FUROSEMIDE 40 MG/4 ML VIAL IV SCH (08:43)
[2018-05-13] MEDS: PROPOFOL 1,000 MG/100 ML BOTTLE IV SCH ×2 (09:44→19:51)
[2018-05-13] MEDS: IMMUNE GLOBULIN 10% 40 GM, IMMUNE GLOBULIN 10% 5 GM in PREMIX 1 EACH IV SCH (17:45)
[2018-05-13] MEDS: PANTOPRAZOLE 40 MG VIAL IV SCH (20:22)
[2018-05-13] MEDS: ATORVASTATIN 10 MG TABLET PO SCH (20:22)
[2018-05-14] MEDS: ALBUTEROL/IPRATROPIUM 3 ML NEB RESP TX SCH ×4 (00:32→19:58)
[2018-05-14] MEDS: MEROPENEM 1,000 MG in SODIUM CHLORIDE 0.9% 100 ML IV SCH ×3 (01:00→17:24)
[2018-05-14] MEDS: methylPREDNISolone SOD SUC 40 MG/1 ML VIAL IV SCH ×3 (04:21→20:29)
[2018-05-14] MEDS: PROPOFOL 1,000 MG/100 ML BOTTLE IV SCH ×2 (04:48→15:54)
[2018-05-14] MEDS: INSULIN LISPRO 100 UNIT/ML SUBCUT SCH ×4 (07:18→20:29)
[2018-05-14] MEDS: CITALOPRAM 20 MG TABLET PO SCH ×2 (08:05→20:30)
[2018-05-14] MEDS: GLYCOPYRROLATE 1 MG TABLET PO SCH ×2 (08:05→20:30)
[2018-05-14] MEDS: MULTIVITAMIN (CENTRUM) TABLET PO SCH (08:06)
[2018-05-14] MEDS: PYRIDOSTIGMINE 60 MG TABLET PO SCH ×4 (08:06→20:30)
[2018-05-14] MEDS: ASCORBIC ACID 500 MG TABLET PO SCH ×2 (08:06→20:30)
[2018-05-14] MEDS: RIVAROXABAN 20 MG TABLET PO SCH (08:06)
[2018-05-14] MEDS: GABAPENTIN 400 MG CAPSULE PO SCH ×2 (08:06→20:33)
[2018-05-14] MEDS: CARVEDILOL 25 MG TABLET PO SCH ×2 (08:06→17:24)
[2018-05-14] MEDS: FUROSEMIDE 40 MG/4 ML VIAL IV SCH ×2 (08:19→15:54)
[2018-05-14 09:28] LABS: Allen Test Positive; Pt O2 Delivery Device Ventilator
[2018-05-14 09:29] LABS: ABG Base Excess 7.4 MMOL/L (-2.5-2.5); ABG HCO3 31.2 MMOL/L (20-26); ABG Oxygen Saturation 97.3 % (95-100); ABG PCO2 48.2 MM HG (35-48); ABG PH 7.438 (7.35-7.45); ABG PO2 91.2 MM HG (80-95)
[2018-05-14 10:26] LABS: Hematocrit 28.6 VOL% (42.0-52.0); Hemoglobin 8.8 GM/DL (14.0-18.0); Immature Granulocytes % 1.4 %; Immature Granulocytes Absolute 0.06 #; Lymphocytes # 0.1 10*3/uL (1.4-4.0); Lymphocytes % 2.1 % (21.2-54.2); Mean Corpuscular HGB Conc 30.8 GM/DL (32-36); Mean Corpuscular Hemoglobin 32 PG (27-34); Mean Corpuscular Volume 102.5 FL (87-102); Mean Platelet Volume 12.5 FL (9.6-12.0); Monocytes # 0.2 10*3/uL (0.11-0.8); Monocytes % 3.5 % (1.7-12.7); Platelet Count 87 T/CUMM (130-400); Red Blood Count 2.79 MC/CUMM (3.8-5.5); Red Cell Distribution Width 18.7 % (9.3-17.3); White Blood Count 4.3 T/CUMM (4-12)
[2018-05-14 10:40] LABS: Calcium 7.6 MG/DL (8.5-10.1); Osmolality,Calculated 294.3 MOS/KG (273-304); Potassium 3.9 MMOL/L (3.5-5.1)
[2018-05-14] MEDS ORDERED: POTASSIUM CHLORIDE RIDER 10 MEQ in PREMIX 1 EACH IV PRN (11:44)
[2018-05-14 12:52] LABS: Anisocytosis 1+; Band Neutrophils 5 % (0-10); Lymphocytes 1 % (20-55); Nucleated Red Blood Cells 1 (0-5); Platelet Estimate Decreased; Poikilocytosis 1+; Segmented Neutrophils 91 % (50-85); Total Cells Counted 100
[2018-05-14 12:53] LABS: Macrocytosis 1+; Polychromasia Slight
[2018-05-14] MEDS: PANTOPRAZOLE 40 MG VIAL IV SCH (20:29)
[2018-05-14] MEDS: ATORVASTATIN 10 MG TABLET PO SCH (20:30)
[2018-05-15] MEDS: ALBUTEROL/IPRATROPIUM 3 ML NEB RESP TX SCH ×4 (00:23→18:57)
[2018-05-15] MEDS: PROPOFOL 1,000 MG/100 ML BOTTLE IV SCH ×3 (01:58→20:14)
[2018-05-15] MEDS: MEROPENEM 1,000 MG in SODIUM CHLORIDE 0.9% 100 ML IV SCH ×3 (01:59→16:27)
[2018-05-15 03:58] LABS: ABG Base Excess 11.6 MMOL/L (-2.5-2.5); ABG HCO3 35.4 MMOL/L (20-26); ABG Oxygen Saturation 98.5 % (95-100); ABG PCO2 52.6 MM HG (35-48); ABG PH 7.462 (7.35-7.45); ABG TCO2 33.1 MMOL/L (23-27); Allen Test Positive; Pt O2 Delivery Device Ventilator
[2018-05-15 04:31] LABS: Hematocrit 30.3 VOL% (42.0-52.0); Hemoglobin 9.5 GM/DL (14.0-18.0); Immature Granulocytes % 0.9 %; Immature Granulocytes Absolute 0.05 #; Lymphocytes # 0.1 10*3/uL (1.4-4.0); Lymphocytes % 2.1 % (21.2-54.2); Mean Corpuscular HGB Conc 31.4 GM/DL (32-36); Mean Corpuscular Hemoglobin 31 PG (27-34); Mean Platelet Volume 12.5 FL (9.6-12.0); Monocytes # 0.2 10*3/uL (0.11-0.8); Monocytes % 4.5 % (1.7-12.7); Neutrophils # 4.9 10*3/uL (1.4-7.4); Neutrophils % 92.5 % (38.7-73.9); Platelet Count 96 T/CUMM (130-400); Red Blood Count 3.03 MC/CUMM (3.8-5.5); Red Cell Distribution Width 18.3 % (9.3-17.3); White Blood Count 5.3 T/CUMM (4-12)
[2018-05-15 05:17] LABS: Calcium 7.5 MG/DL (8.5-10.1); Osmolality,Calculated 297.1 MOS/KG (273-304); Potassium 3.3 MMOL/L (3.5-5.1)
[2018-05-15] MEDS: methylPREDNISolone SOD SUC 40 MG/1 ML VIAL IV SCH ×3 (05:17→20:13)
[2018-05-15] MEDS: POTASSIUM CHLORIDE 20 MEQ/15 ML UDCUP PER TUBE PRN ×4 (05:25→17:58)
[2018-05-15 05:28] LABS: Hypochromasia Slight; Lymphocytes 3 % (20-55); Macrocytosis 2+; Nucleated Red Blood Cells 1 (0-5); Segmented Neutrophils 94 % (50-85); Total Cells Counted 100
[2018-05-15 05:31] LABS: Platelet Estimate Decreased
[2018-05-15] MEDS: INSULIN LISPRO 100 UNIT/ML SUBCUT SCH ×4 (07:42→20:12)
[2018-05-15] MEDS: CARVEDILOL 25 MG TABLET PO SCH ×2 (07:43→16:27)
[2018-05-15] MEDS: FUROSEMIDE 40 MG/4 ML VIAL IV SCH ×4 (07:59→23:08)
[2018-05-15] MEDS: ASCORBIC ACID 500 MG TABLET PO SCH ×2 (08:04→20:14)
[2018-05-15] MEDS: GLYCOPYRROLATE 1 MG TABLET PO SCH ×2 (08:04→20:14)
[2018-05-15] MEDS: PYRIDOSTIGMINE 60 MG TABLET PO SCH ×4 (08:04→20:14)
[2018-05-15] MEDS: MULTIVITAMIN (CENTRUM) TABLET PO SCH (08:04)
[2018-05-15] MEDS: GABAPENTIN 400 MG CAPSULE PO SCH ×2 (08:04→20:14)
[2018-05-15] MEDS: RIVAROXABAN 20 MG TABLET PO SCH (08:04)
[2018-05-15] MEDS: CITALOPRAM 20 MG TABLET PO SCH ×2 (08:04→20:14)
[2018-05-15] MEDS: MORPHINE 4 MG/1 ML VIAL IV PRN (15:29)
[2018-05-15] MEDS: PANTOPRAZOLE 40 MG VIAL IV SCH (20:13)
[2018-05-15] MEDS: ATORVASTATIN 10 MG TABLET PO SCH (20:14)
[2018-05-16] MEDS: MEROPENEM 1,000 MG in SODIUM CHLORIDE 0.9% 100 ML IV SCH ×3 (00:19→17:15)
[2018-05-16] MEDS: ALBUTEROL/IPRATROPIUM 3 ML NEB RESP TX SCH ×4 (00:23→19:25)
[2018-05-16 04:24] LABS: ABG HCO3 42.1 MMOL/L (20-26); ABG Oxygen Saturation 96.3 % (95-100); ABG PCO2 54.3 MM HG (35-48); ABG PH 7.516 (7.35-7.45); ABG PO2 78.1 MM HG (80-95); Allen Test Positive; Pt O2 Delivery Device Ventilator
[2018-05-16] MEDS: methylPREDNISolone SOD SUC 40 MG/1 ML VIAL IV SCH ×3 (05:14→20:25)
[2018-05-16] MEDS: PROPOFOL 1,000 MG/100 ML BOTTLE IV SCH ×2 (05:18→17:00)
[2018-05-16 06:46] LABS: Prealbumin 25.6 MG/DL (20-40)
[2018-05-16 07:01] LABS: Calcium 7.3 MG/DL (8.5-10.1); Osmolality,Calculated 301.8 MOS/KG (273-304); Potassium 3.7 MMOL/L (3.5-5.1)
[2018-05-16 07:31] LABS: Hematocrit 29.5 VOL% (42.0-52.0); Hemoglobin 9.1 GM/DL (14.0-18.0); Immature Granulocytes % 0.7 %; Immature Granulocytes Absolute 0.04 #; Lymphocytes # 0.1 10*3/uL (1.4-4.0); Lymphocytes % 1.4 % (21.2-54.2); Mean Corpuscular HGB Conc 30.8 GM/DL (32-36); Mean Corpuscular Hemoglobin 31 PG (27-34); Mean Corpuscular Volume 101.4 FL (87-102); Mean Platelet Volume 11.6 FL (9.6-12.0); Monocytes # 0.3 10*3/uL (0.11-0.8); Monocytes % 4.8 % (1.7-12.7); NRBC # 0.05 10*3/uL; Neutrophils # 5.4 10*3/uL (1.4-7.4); Neutrophils % 93.1 % (38.7-73.9); Platelet Count 86 T/CUMM (130-400); Red Blood Count 2.91 MC/CUMM (3.8-5.5); Red Cell Distribution Width 17.9 % (9.3-17.3); White Blood Count 5.8 T/CUMM (4-12)
[2018-05-16 08:13] LABS: Hypochromasia 1+; Macrocytosis Slight; Platelet Estimate Decreased; Segmented Neutrophils 94 % (50-85); Total Cells Counted 100
[2018-05-16] MEDS: CARVEDILOL 25 MG TABLET PO SCH ×2 (09:44→17:10)
[2018-05-16] MEDS: RIVAROXABAN 20 MG TABLET PO SCH (09:44)
[2018-05-16] MEDS: CITALOPRAM 20 MG TABLET PO SCH ×2 (09:44→20:25)
[2018-05-16] MEDS: PYRIDOSTIGMINE 60 MG TABLET PO SCH ×4 (09:44→20:26)
[2018-05-16] MEDS: GLYCOPYRROLATE 1 MG TABLET PO SCH ×2 (09:45→20:26)
[2018-05-16] MEDS: INSULIN LISPRO 100 UNIT/ML SUBCUT SCH ×4 (09:45→20:26)
[2018-05-16] MEDS: GABAPENTIN 400 MG CAPSULE PO SCH ×2 (09:45→20:26)
[2018-05-16] MEDS: MULTIVITAMIN (CENTRUM) TABLET PO SCH (09:45)
[2018-05-16] MEDS: ASCORBIC ACID 500 MG TABLET PO SCH ×2 (09:45→20:38)
[2018-05-16] MEDS: FUROSEMIDE 20 MG/2 ML VIAL IV SCH ×2 (09:46→17:11)
[2018-05-16] MEDS: MORPHINE 4 MG/1 ML VIAL IV PRN ×2 (09:56→17:13)
[2018-05-16] MEDS: FUROSEMIDE 40 MG/4 ML VIAL IV SCH (10:22)
[2018-05-16] MEDS: ATORVASTATIN 10 MG TABLET PO SCH (20:25)
[2018-05-16] MEDS: PANTOPRAZOLE 40 MG VIAL IV SCH (20:25)
[2018-05-17] MEDS: ALBUTEROL/IPRATROPIUM 3 ML NEB RESP TX SCH ×3 (00:54→12:42)
[2018-05-17] MEDS: MEROPENEM 1,000 MG in SODIUM CHLORIDE 0.9% 100 ML IV SCH ×2 (02:08→09:45)
[2018-05-17] MEDS: MORPHINE 4 MG/1 ML VIAL IV PRN ×3 (02:12→17:09)
[2018-05-17 02:34] LABS: ABG Base Excess 21.6 MMOL/L (-2.5-2.5); ABG HCO3 46.3 MMOL/L (20-26); ABG Oxygen Saturation 97.5 % (95-100); ABG PCO2 52.4 MM HG (35-48); ABG PH 7.564 (7.35-7.45); ABG TCO2 47.9 MMOL/L (23-27); Allen Test Positive; Pt O2 Delivery Device Ventilator
[2018-05-17] MEDS: methylPREDNISolone SOD SUC 40 MG/1 ML VIAL IV SCH (04:18)
[2018-05-17 05:23] LABS: Hematocrit 28.1 VOL% (42.0-52.0); Hemoglobin 8.6 GM/DL (14.0-18.0); Immature Granulocytes % 0.6 %; Immature Granulocytes Absolute 0.03 #; Lymphocytes # 0.1 10*3/uL (1.4-4.0); Lymphocytes % 1.9 % (21.2-54.2); Mean Corpuscular HGB Conc 30.6 GM/DL (32-36); Mean Corpuscular Hemoglobin 31 PG (27-34); Mean Corpuscular Volume 101.1 FL (87-102); Mean Platelet Volume 12.8 FL (9.6-12.0); Monocytes # 0.3 10*3/uL (0.11-0.8); Monocytes % 4.8 % (1.7-12.7); Neutrophils # 4.9 10*3/uL (1.4-7.4); Neutrophils % 92.7 % (38.7-73.9); Red Blood Count 2.78 MC/CUMM (3.8-5.5); Red Cell Distribution Width 17.5 % (9.3-17.3); White Blood Count 5.3 T/CUMM (4-12)
[2018-05-17 05:27] LABS: Platelet Count 80 T/CUMM (130-400)
[2018-05-17] MEDS: PROPOFOL 1,000 MG/100 ML BOTTLE IV SCH (05:29)
[2018-05-17 05:37] LABS: Calcium 7.6 MG/DL (8.5-10.1); Osmolality,Calculated 304.7 MOS/KG (273-304); Potassium 3.2 MMOL/L (3.5-5.1)
[2018-05-17] MEDS: POTASSIUM CHLORIDE 20 MEQ/15 ML UDCUP PER TUBE PRN ×4 (05:47→17:08)
[2018-05-17 05:53] LABS: Band Neutrophils 1 % (0-10); Lymphocytes 1 % (20-55); Segmented Neutrophils 94 % (50-85); Total Cells Counted 100
[2018-05-17 05:54] LABS: Hypochromasia 1+; Macrocytosis 1+; Ovalocytes Slight
[2018-05-17 05:55] LABS: Platelet Estimate Decreased
[2018-05-17] MEDS ORDERED: KETOROLAC 30 MG/1 ML VIAL IV PRN (07:20)
[2018-05-17] MEDS: INSULIN LISPRO 100 UNIT/ML SUBCUT SCH ×3 (09:40→16:37)
[2018-05-17] MEDS: CITALOPRAM 20 MG TABLET PO SCH (09:41)
[2018-05-17] MEDS: ASCORBIC ACID 500 MG TABLET PO SCH (09:41)
[2018-05-17] MEDS: GLYCOPYRROLATE 1 MG TABLET PO SCH (09:41)
[2018-05-17] MEDS: MULTIVITAMIN (CENTRUM) TABLET PO SCH (09:41)
[2018-05-17] MEDS: RIVAROXABAN 20 MG TABLET PO SCH (09:41)
[2018-05-17] MEDS: PYRIDOSTIGMINE 60 MG TABLET PO SCH ×3 (09:42→17:08)
[2018-05-17] MEDS: FUROSEMIDE 20 MG/2 ML VIAL IV SCH ×2 (09:42→17:11)
[2018-05-17] MEDS: CARVEDILOL 25 MG TABLET PO SCH ×2 (09:42→17:08)
[2018-05-17] MEDS: GABAPENTIN 400 MG CAPSULE PO SCH (09:52)
[2018-05-17] MEDS ORDERED: methylPREDNISolone SOD SUC 40 MG/1 ML VIAL IV SCH (12:00)
[2018-05-17 19:26] VITALS: BP 131/76
== END 2018-05-17 18:00 | DRG 207 ==
LOC: EDUNIT# → EDBD → N.ED 17:12 → N.EDINP 19:04 → N.ICU 19:40
PROVIDERS: ADMIT Internal Medicine; ATTEND Internal Medicine

== ENCOUNTER 2018-11-21 08:45 | Inpatient (IN) ==
[2018-11-21] MEDS ORDERED: CLINDAMYCIN INJ 900 MG in PREMIX 1 EACH IV STA (09:33)
[2018-11-21] MEDS ORDERED: ALBUTEROL/IPRATROPIUM 3 ML NEB RESP TX STA (09:33)
[2018-11-21] MEDS ORDERED: SULFAMETHOX/TRIMETHOPRIM 800-160 MG TABLET PO STA (09:34)
[2018-11-21 09:37] LABS: Basophils % 0.3 % (0.0-0.8); Eosinophils # 0.2 10*3/uL (0.0-0.87); Eosinophils % 1.9 % (0.00-10.9); Hematocrit 37.1 VOL% (42.0-52.0); Immature Granulocytes % 0.5 %; Immature Granulocytes Absolute 0.04 #; Lymphocytes # 0.7 10*3/uL (1.4-4.0); Lymphocytes % 7.6 % (21.2-54.2); Mean Corpuscular HGB Conc 28.6 GM/DL (32-36); Mean Corpuscular Hemoglobin 29 PG (27-34); Mean Platelet Volume 10.3 FL (9.6-12.0); Monocytes # 0.9 10*3/uL (0.11-0.8); Neutrophils % 79.7 % (38.7-73.9); Platelet Count 237 T/CUMM (130-400); Red Blood Count 3.71 MC/CUMM (3.8-5.5); Red Cell Distribution Width 19.1 % (9.3-17.3); White Blood Count 8.8 T/CUMM (4-12)
[2018-11-21 09:42] LABS: Hemoglobin 10.6 GM/DL (14.0-18.0)
[2018-11-21 09:43] LABS: Apearance,Urine Slightly Hazy (Clear); Bacteria,Urine Many /HPF (Few); Bilirubin,Urine Negative (Negative); Blood, Urine Small mg/dL (Negative); Glucose,Urine (UA) Negative (Negative); Hyaline Casts,Urine 65 /LPF (0-3); Ketones,Urine 5 mg/dL (Negative); Mucus,Urine Moderate /LPF (Occasional); Nitrite,Urine Negative (Negative); Protein,Urine 100 MG/DL; RBC,Urine 5 /HPF (0-4); Urine Color Amber (Yellow); Urine Specific Gravity 1.026 (1.001-1.035); WBC,Urine 123 /HPF (0-6)
[2018-11-21 09:45] LABS: INR 1.3; PT Patient Result 14.1 SECS; Partial Thromboplastin Time 28.5 SECS (0-40)
[2018-11-21 09:56] LABS: Alanine Aminotransferase 13 U/L (16-61); Alkaline Phosphatase 115 U/L (45-117); Aspartate Amino Transferase 19 U/L (0-37); Blood Urea Nitrogen 10 MG/DL (7-18); Calcium 8.6 MG/DL (8.5-10.1); Glucose 108 MG/DL (74-106); Osmolality,Calculated 274.7 MOS/KG (273-304); Potassium 4.4 MMOL/L (3.5-5.1); Sodium 138 MMOL/L (136-145); Total Protein 7.6 G/DL (6.4-8.3); Troponin I < 0.015 NG/ML (0.00-0.045)
[2018-11-21 09:58] LABS: Hypochromasia 1+; Macrocytosis 1+
[2018-11-21 09:59] LABS: Ovalocytes Slight; Platelet Estimate Normal
[2018-11-21] MEDS ORDERED: LEVOFLOXACIN INJ 750 MG in PREMIX 1 EACH IV STA (10:08)
[2018-11-21] MEDS ORDERED: GLUCAGON 1 MG VIAL IM PRN (11:16)
[2018-11-21] MEDS ORDERED: DEXTROSE 50% 25 GM/50 ML VIAL IV PRN (11:16)
[2018-11-21] MEDS ORDERED: ACETAMINOPHEN 325 MG TABLET PO PRN (11:16)
[2018-11-21] MEDS ORDERED: SODIUM CHLORIDE 0.9% 1,000 ML IV SCH (11:30)
[2018-11-21 12:38] LABS: Barbiturates Screen,Urine Negative (Negative); Benzodiazepines Screen,Urine Negative (Negative); Cannabinoid Screen,Urine Negative (Negative); Opiate Screen,Urine Positive (Negative); Phencyclidine Screen,Urine Negative (Negative)
[2018-11-21 13:55] LABS: Folate > 24.0 NG/ML (5.4-24.0); Vitamin B12 433 PG/ML (211-911)
[2018-11-21] MEDS: INSULIN LISPRO 100 UNIT/ML SUBCUT SCH (16:44)
[2018-11-21] MEDS: FERROUS SULFATE 325 MG TABLET PO SCH (20:28)
[2018-11-21] MEDS: ASCORBIC ACID 500 MG TABLET PO SCH (20:28)
[2018-11-21] MEDS: GABAPENTIN 400 MG CAPSULE PO SCH (20:29)
[2018-11-21] MEDS: FUROSEMIDE 40 MG TABLET PO SCH (20:29)
[2018-11-21] MEDS: CARVEDILOL 6.25 MG TABLET PO SCH (20:29)
[2018-11-21] MEDS: hydrALAZINE 25 MG TABLET PO SCH (20:29)
[2018-11-21] MEDS: POTASSIUM CHLORIDE 10 MEQ TABLET PO SCH (20:29)
[2018-11-21] MEDS: ATORVASTATIN 10 MG TABLET PO SCH (20:29)
[2018-11-21] MEDS: CITALOPRAM 20 MG TABLET PO SCH (21:02)
[2018-11-22] MEDS: INSULIN LISPRO 100 UNIT/ML SUBCUT SCH ×5 (01:01→21:39)
[2018-11-22] MEDS: LORazepam 2 MG/1 ML VIAL IV PRN (04:19)
[2018-11-22 05:32] LABS: Basophils % 0.5 % (0.0-0.8); Eosinophils # 0.1 10*3/uL (0.0-0.87); Eosinophils % 2.2 % (0.00-10.9); Hematocrit 30.8 VOL% (42.0-52.0); Immature Granulocytes % 0.5 %; Immature Granulocytes Absolute 0.03 #; Lymphocytes # 0.7 10*3/uL (1.4-4.0); Lymphocytes % 12.5 % (21.2-54.2); Mean Corpuscular HGB Conc 29.2 GM/DL (32-36); Mean Corpuscular Hemoglobin 29 PG (27-34); Mean Corpuscular Volume 99.4 FL (87-102); Mean Platelet Volume 10.6 FL (9.6-12.0); Monocytes # 0.7 10*3/uL (0.11-0.8); Monocytes % 12.1 % (1.7-12.7); Neutrophils % 72.2 % (38.7-73.9); Red Cell Distribution Width 18.9 % (9.3-17.3)
[2018-11-22 05:45] LABS: White Blood Count 5.5 T/CUMM (4-12)
[2018-11-22 05:46] LABS: Platelet Count 175 T/CUMM (130-400)
[2018-11-22 06:00] LABS: Albumin 2.3 G/DL (3.4-5.0); Bilirubin,Total 0.7 MG/DL (0.2-1.0); Calcium 8.1 MG/DL (8.5-10.1); Osmolality,Calculated 278.3 MOS/KG (273-304); Potassium 3.9 MMOL/L (3.5-5.1); Risk Ratio 2.32; Total Protein 6.3 G/DL (6.4-8.3); VLDL CHOLESTEROL 12.2 MG/DL
[2018-11-22] MEDS ORDERED: THIAMINE 200 MG/2 ML VIAL IM SCH (09:00)
[2018-11-22] MEDS: FERROUS SULFATE 325 MG TABLET PO SCH ×2 (09:33→21:16)
[2018-11-22] MEDS: POTASSIUM CHLORIDE 10 MEQ TABLET PO SCH ×2 (09:33→21:16)
[2018-11-22] MEDS: FOLIC ACID 1 MG TABLET PO SCH (09:33)
[2018-11-22] MEDS: CITALOPRAM 20 MG TABLET PO SCH ×2 (09:33→21:16)
[2018-11-22] MEDS: CARVEDILOL 6.25 MG TABLET PO SCH ×2 (09:33→21:16)
[2018-11-22] MEDS: PANTOPRAZOLE 40 MG TABLET PO SCH (09:33)
[2018-11-22] MEDS: MULTIVITAMIN (CENTRUM) TABLET PO SCH (09:33)
[2018-11-22] MEDS: hydrALAZINE 25 MG TABLET PO SCH ×2 (09:33→23:51)
[2018-11-22] MEDS: FUROSEMIDE 40 MG TABLET PO SCH (09:33)
[2018-11-22] MEDS: FAMOTIDINE 20 MG TABLET PO SCH (09:33)
[2018-11-22] MEDS: GABAPENTIN 400 MG CAPSULE PO SCH ×2 (09:33→21:16)
[2018-11-22] MEDS: CEFTAROLINE 600 MG in SODIUM CHLORIDE 0.9% 100 ML IV SCH ×2 (09:34→21:15)
[2018-11-22] MEDS: ASCORBIC ACID 500 MG TABLET PO SCH ×2 (09:42→21:16)
[2018-11-22] MEDS ORDERED: RIVAROXABAN 20 MG TABLET PO SCH (10:30)
[2018-11-22 12:27] LABS: ABG Base Excess 2.6 MMOL/L (-2.5-2.5); ABG HCO3 26.6 MMOL/L (20-26); ABG Oxygen Saturation 88.9 % (95-100); ABG PCO2 55.6 MM HG (35-48); ABG PH 7.333 (7.35-7.45); ABG PO2 61.3 MM HG (80-95); ABG TCO2 27.2 MMOL/L (23-27); Allen Test Positive; Pt O2 Delivery Device BIPAP
[2018-11-22 12:28] LABS: Calcium 8.5 MG/DL (8.5-10.1); Osmolality,Calculated 276.4 MOS/KG (273-304); Potassium 3.9 MMOL/L (3.5-5.1)
[2018-11-22] MEDS: ENOXAPARIN 120 MG/0.8 ML SYRINGE SUBCUT SCH (12:46)
[2018-11-22] MEDS: FUROSEMIDE 40 MG/4 ML VIAL IV SCH ×2 (12:46→16:10)
[2018-11-22] MEDS: DESITIN 4OZ/NYSTATIN 15 GRAM MIXTURE PASTE TOP SCH ×2 (12:56→21:15)
[2018-11-22] MEDS: ATORVASTATIN 10 MG TABLET PO SCH (21:15)
[2018-11-22] MEDS: DOCUSATE SODIUM 100 MG CAPSULE PO PRN (21:16)
[2018-11-23] MEDS: ENOXAPARIN 120 MG/0.8 ML SYRINGE SUBCUT SCH ×2 (00:36→12:57)
[2018-11-23 04:45] LABS: Albumin 2.4 G/DL (3.4-5.0); Bilirubin,Total 0.9 MG/DL (0.2-1.0); Calcium 8.1 MG/DL (8.5-10.1); Potassium 3.9 MMOL/L (3.5-5.1); Total Protein 6.2 G/DL (6.4-8.3)
[2018-11-23 04:51] LABS: Immature Granulocytes Absolute 0.02 #
[2018-11-23 05:17] LABS: Basophils % 0.7 % (0.0-0.8); Eosinophils # 0.2 10*3/uL (0.0-0.87); Eosinophils % 3.8 % (0.00-10.9); Immature Granulocytes % 0.4 %; Lymphocytes # 0.6 10*3/uL (1.4-4.0); Mean Corpuscular HGB Conc 29.4 GM/DL (32-36); Mean Corpuscular Hemoglobin 29 PG (27-34); Mean Corpuscular Volume 99.7 FL (87-102); Mean Platelet Volume 11.1 FL (9.6-12.0); Monocytes # 0.5 10*3/uL (0.11-0.8); Monocytes % 10.2 % (1.7-12.7); Neutrophils # 3.2 10*3/uL (1.4-7.4); Neutrophils % 70.9 % (38.7-73.9); Platelet Count 162 T/CUMM (130-400); Red Blood Count 3.11 MC/CUMM (3.8-5.5); Red Cell Distribution Width 18.8 % (9.3-17.3); White Blood Count 4.5 T/CUMM (4-12)
[2018-11-23 05:29] LABS: Hemoglobin 9.1 GM/DL (14.0-18.0)
[2018-11-23 06:16] LABS: Platelet Estimate Decreased
[2018-11-23 06:18] LABS: Hypochromasia 1+; Polychromasia Few
[2018-11-23] MEDS: INSULIN LISPRO 100 UNIT/ML SUBCUT SCH ×4 (07:30→21:35)
[2018-11-23] MEDS: FOLIC ACID 1 MG TABLET PO SCH (09:53)
[2018-11-23] MEDS: CITALOPRAM 20 MG TABLET PO SCH ×2 (09:53→21:14)
[2018-11-23] MEDS: FAMOTIDINE 20 MG TABLET PO SCH (09:53)
[2018-11-23] MEDS: FERROUS SULFATE 325 MG TABLET PO SCH ×2 (09:53→21:14)
[2018-11-23] MEDS: DOCUSATE SODIUM 100 MG CAPSULE PO PRN (09:53)
[2018-11-23] MEDS: hydrALAZINE 25 MG TABLET PO SCH ×2 (09:54→21:14)
[2018-11-23] MEDS: ASCORBIC ACID 500 MG TABLET PO SCH ×2 (09:54→21:14)
[2018-11-23] MEDS: GABAPENTIN 400 MG CAPSULE PO SCH ×2 (09:54→21:14)
[2018-11-23] MEDS: MULTIVITAMIN (CENTRUM) TABLET PO SCH (09:55)
[2018-11-23] MEDS: PANTOPRAZOLE 40 MG TABLET PO SCH (09:55)
[2018-11-23] MEDS: POTASSIUM CHLORIDE 10 MEQ TABLET PO SCH ×2 (09:55→21:14)
[2018-11-23] MEDS: CARVEDILOL 6.25 MG TABLET PO SCH ×2 (09:55→21:14)
[2018-11-23] MEDS: THIAMINE 100 MG TABLET PO SCH (09:55)
[2018-11-23] MEDS: FUROSEMIDE 40 MG/4 ML VIAL IV SCH ×2 (09:57→17:38)
[2018-11-23] MEDS: CEFTAROLINE 600 MG in SODIUM CHLORIDE 0.9% 100 ML IV SCH ×2 (10:06→21:35)
[2018-11-23] MEDS: DESITIN 4OZ/NYSTATIN 15 GRAM MIXTURE PASTE TOP SCH ×2 (10:08→21:36)
[2018-11-23] MEDS ORDERED: MORPHINE 4 MG/1 ML VIAL ONE (12:55)
[2018-11-23] MEDS: LORazepam 2 MG/1 ML VIAL IV PRN (12:58)
[2018-11-23] MEDS: RIVAROXABAN 20 MG TABLET PO SCH (17:38)
[2018-11-23] MEDS: ATORVASTATIN 10 MG TABLET PO SCH (21:14)
[2018-11-24 05:17] LABS: Albumin 2.6 G/DL (3.4-5.0); Bilirubin,Total 0.5 MG/DL (0.2-1.0); Calcium 8.3 MG/DL (8.5-10.1); Osmolality,Calculated 278.3 MOS/KG (273-304); Potassium 3.8 MMOL/L (3.5-5.1); Total Protein 6.8 G/DL (6.4-8.3)
[2018-11-24 05:32] LABS: Basophils % 0.8 % (0.0-0.8); Eosinophils # 0.3 10*3/uL (0.0-0.87); Eosinophils % 5.9 % (0.00-10.9); Hematocrit 34.2 VOL% (42.0-52.0); Hemoglobin 9.6 GM/DL (14.0-18.0); Immature Granulocytes % 0.6 %; Immature Granulocytes Absolute 0.03 #; Lymphocytes # 0.7 10*3/uL (1.4-4.0); Lymphocytes % 12.5 % (21.2-54.2); Mean Corpuscular HGB Conc 28.1 GM/DL (32-36); Mean Corpuscular Hemoglobin 29 PG (27-34); Mean Corpuscular Volume 101.5 FL (87-102); Mean Platelet Volume 10.4 FL (9.6-12.0); Monocytes # 0.6 10*3/uL (0.11-0.8); Monocytes % 10.5 % (1.7-12.7); Neutrophils # 3.6 10*3/uL (1.4-7.4); Neutrophils % 69.7 % (38.7-73.9); Platelet Count 175 T/CUMM (130-400); Red Blood Count 3.37 MC/CUMM (3.8-5.5); White Blood Count 5.2 T/CUMM (4-12)
[2018-11-24 05:38] LABS: Hypochromasia 1+
[2018-11-24 05:39] LABS: Macrocytosis 1+; Ovalocytes Slight
[2018-11-24 05:40] LABS: Platelet Estimate Adequate
[2018-11-24] MEDS: INSULIN LISPRO 100 UNIT/ML SUBCUT SCH ×4 (07:30→22:01)
[2018-11-24] MEDS: MULTIVITAMIN (CENTRUM) TABLET PO SCH (10:12)
[2018-11-24] MEDS: PANTOPRAZOLE 40 MG TABLET PO SCH (10:12)
[2018-11-24] MEDS: CITALOPRAM 20 MG TABLET PO SCH ×2 (10:13→21:55)
[2018-11-24] MEDS: FERROUS SULFATE 325 MG TABLET PO SCH ×2 (10:13→21:55)
[2018-11-24] MEDS: FOLIC ACID 1 MG TABLET PO SCH (10:13)
[2018-11-24] MEDS: POTASSIUM CHLORIDE 10 MEQ TABLET PO SCH ×2 (10:13→21:55)
[2018-11-24] MEDS: THIAMINE 100 MG TABLET PO SCH (10:14)
[2018-11-24] MEDS: GABAPENTIN 400 MG CAPSULE PO SCH ×2 (10:14→21:55)
[2018-11-24] MEDS: hydrALAZINE 25 MG TABLET PO SCH ×2 (10:14→21:55)
[2018-11-24] MEDS: ASCORBIC ACID 500 MG TABLET PO SCH ×2 (10:15→21:55)
[2018-11-24] MEDS: FAMOTIDINE 20 MG TABLET PO SCH (10:15)
[2018-11-24] MEDS: CARVEDILOL 6.25 MG TABLET PO SCH ×2 (10:15→21:55)
[2018-11-24] MEDS: CEFTAROLINE 600 MG in SODIUM CHLORIDE 0.9% 100 ML IV SCH ×2 (10:17→22:01)
[2018-11-24] MEDS: FUROSEMIDE 40 MG/4 ML VIAL IV SCH ×2 (10:21→16:06)
[2018-11-24] MEDS: DESITIN 4OZ/NYSTATIN 15 GRAM MIXTURE PASTE TOP SCH ×2 (10:28→21:55)
[2018-11-24] MEDS: RIVAROXABAN 20 MG TABLET PO SCH (18:19)
[2018-11-24] MEDS: ATORVASTATIN 10 MG TABLET PO SCH (21:55)
[2018-11-25] MEDS: INSULIN LISPRO 100 UNIT/ML SUBCUT SCH ×4 (08:33→22:08)
[2018-11-25] MEDS: FUROSEMIDE 40 MG/4 ML VIAL IV SCH ×2 (09:56→15:54)
[2018-11-25] MEDS: ASCORBIC ACID 500 MG TABLET PO SCH ×2 (09:57→21:11)
[2018-11-25] MEDS: CEFTAROLINE 600 MG in SODIUM CHLORIDE 0.9% 100 ML IV SCH (09:57)
[2018-11-25] MEDS: DOCUSATE SODIUM 100 MG CAPSULE PO PRN ×2 (09:57→21:12)
[2018-11-25] MEDS: CITALOPRAM 20 MG TABLET PO SCH ×2 (09:57→21:12)
[2018-11-25] MEDS: MULTIVITAMIN (CENTRUM) TABLET PO SCH (09:57)
[2018-11-25] MEDS: FAMOTIDINE 20 MG TABLET PO SCH (09:57)
[2018-11-25] MEDS: THIAMINE 100 MG TABLET PO SCH (09:58)
[2018-11-25] MEDS: hydrALAZINE 25 MG TABLET PO SCH ×2 (09:58→21:12)
[2018-11-25] MEDS: CARVEDILOL 6.25 MG TABLET PO SCH ×2 (09:58→21:12)
[2018-11-25] MEDS: GABAPENTIN 400 MG CAPSULE PO SCH ×2 (09:58→21:12)
[2018-11-25] MEDS: FERROUS SULFATE 325 MG TABLET PO SCH ×2 (09:58→21:11)
[2018-11-25] MEDS: FOLIC ACID 1 MG TABLET PO SCH (09:58)
[2018-11-25] MEDS: POTASSIUM CHLORIDE 10 MEQ TABLET PO SCH ×2 (09:58→21:12)
[2018-11-25] MEDS: PANTOPRAZOLE 40 MG TABLET PO SCH (09:58)
[2018-11-25] MEDS: DESITIN 4OZ/NYSTATIN 15 GRAM MIXTURE PASTE TOP SCH ×2 (09:59→21:12)
[2018-11-25] MEDS: RIVAROXABAN 20 MG TABLET PO SCH (18:23)
[2018-11-25] MEDS: ATORVASTATIN 10 MG TABLET PO SCH (21:12)
[2018-11-26] MEDS: INSULIN LISPRO 100 UNIT/ML SUBCUT SCH ×4 (07:18→21:00)
[2018-11-26] MEDS: FUROSEMIDE 40 MG/4 ML VIAL IV SCH ×2 (08:59→17:30)
[2018-11-26] MEDS ORDERED: LEVOFLOXACIN 500 MG TABLET PO SCH (09:00)
[2018-11-26] MEDS: POTASSIUM CHLORIDE 10 MEQ TABLET PO SCH ×2 (09:01→21:12)
[2018-11-26] MEDS: FOLIC ACID 1 MG TABLET PO SCH (09:01)
[2018-11-26] MEDS: CITALOPRAM 20 MG TABLET PO SCH ×2 (09:01→21:12)
[2018-11-26] MEDS: CARVEDILOL 6.25 MG TABLET PO SCH ×2 (09:01→21:12)
[2018-11-26] MEDS: DOCUSATE SODIUM 100 MG CAPSULE PO PRN ×2 (09:01→21:12)
[2018-11-26] MEDS: MULTIVITAMIN (CENTRUM) TABLET PO SCH (09:01)
[2018-11-26] MEDS: FERROUS SULFATE 325 MG TABLET PO SCH ×2 (09:01→21:12)
[2018-11-26] MEDS: PANTOPRAZOLE 40 MG TABLET PO SCH (09:01)
[2018-11-26] MEDS: FAMOTIDINE 20 MG TABLET PO SCH (09:02)
[2018-11-26] MEDS: THIAMINE 100 MG TABLET PO SCH (09:02)
[2018-11-26] MEDS: ASCORBIC ACID 500 MG TABLET PO SCH ×2 (09:02→21:12)
[2018-11-26] MEDS: DESITIN 4OZ/NYSTATIN 15 GRAM MIXTURE PASTE TOP SCH ×2 (09:02→21:12)
[2018-11-26] MEDS: hydrALAZINE 25 MG TABLET PO SCH ×2 (09:02→21:12)
[2018-11-26] MEDS: GABAPENTIN 400 MG CAPSULE PO SCH ×2 (09:02→21:12)
[2018-11-26] MEDS: LORazepam 2 MG/1 ML VIAL IV PRN (10:16)
[2018-11-26] MEDS ORDERED: diphenhydrAMINE CAP 25 MG CAPSULE ONE (16:47)
[2018-11-26] MEDS: RIVAROXABAN 20 MG TABLET PO SCH (17:30)
[2018-11-26] MEDS: SULFAMETHOX/TRIMETHOPRIM 800-160 MG TABLET PO SCH (21:12)
[2018-11-26] MEDS: ATORVASTATIN 10 MG TABLET PO SCH (21:12)
[2018-11-27] MEDS: ALBUTEROL/IPRATROPIUM 3 ML NEB RESP TX SCH ×6 (00:16→19:51)
[2018-11-27 05:32] LABS: Calcium 8.3 MG/DL (8.5-10.1); Osmolality,Calculated 278.3 MOS/KG (273-304); Potassium 3.6 MMOL/L (3.5-5.1)
[2018-11-27 06:49] LABS: ABG Base Excess 18.3 MMOL/L (-2.5-2.5); ABG HCO3 42.2 MMOL/L (20-26); ABG Oxygen Saturation 85.2 % (95-100); ABG PH 7.404 (7.35-7.45); ABG PO2 51.1 MM HG (80-95); ABG TCO2 42.9 MMOL/L (23-27); Allen Test Positive; Pt O2 Delivery Device CPAP
[2018-11-27 06:51] LABS: ABG PCO2 74.9 MM HG (35-48)
[2018-11-27] MEDS: INSULIN LISPRO 100 UNIT/ML SUBCUT SCH ×4 (07:42→21:54)
[2018-11-27] MEDS: MULTIVITAMIN (CENTRUM) TABLET PO SCH (09:04)
[2018-11-27] MEDS: CARVEDILOL 6.25 MG TABLET PO SCH ×2 (09:04→21:54)
[2018-11-27] MEDS: POTASSIUM CHLORIDE 10 MEQ TABLET PO SCH ×2 (09:04→21:54)
[2018-11-27] MEDS: FERROUS SULFATE 325 MG TABLET PO SCH ×2 (09:04→21:54)
[2018-11-27] MEDS: FOLIC ACID 1 MG TABLET PO SCH (09:04)
[2018-11-27] MEDS: ASCORBIC ACID 500 MG TABLET PO SCH ×2 (09:04→21:54)
[2018-11-27] MEDS: SULFAMETHOX/TRIMETHOPRIM 800-160 MG TABLET PO SCH ×2 (09:04→21:53)
[2018-11-27] MEDS: hydrALAZINE 25 MG TABLET PO SCH ×2 (09:04→21:53)
[2018-11-27] MEDS: CITALOPRAM 20 MG TABLET PO SCH ×2 (09:04→21:53)
[2018-11-27] MEDS: THIAMINE 100 MG TABLET PO SCH (09:05)
[2018-11-27] MEDS: FUROSEMIDE 40 MG/4 ML VIAL IV SCH ×2 (09:05→17:08)
[2018-11-27] MEDS: DESITIN 4OZ/NYSTATIN 15 GRAM MIXTURE PASTE TOP SCH ×2 (09:05→21:56)
[2018-11-27] MEDS: GABAPENTIN 400 MG CAPSULE PO SCH ×2 (09:05→21:54)
[2018-11-27] MEDS: FAMOTIDINE 20 MG TABLET PO SCH (09:05)
[2018-11-27] MEDS: PANTOPRAZOLE 40 MG TABLET PO SCH (09:05)
[2018-11-27 16:19] LABS: ABG Base Excess 18.9 MMOL/L (-2.5-2.5); ABG HCO3 43.1 MMOL/L (20-26); ABG Oxygen Saturation 95.8 % (95-100); ABG PO2 79.7 MM HG (80-95); ABG TCO2 43.2 MMOL/L (23-27)
[2018-11-27 16:28] LABS: ABG PCO2 74.8 MM HG (35-48)
[2018-11-27] MEDS: RIVAROXABAN 20 MG TABLET PO SCH (17:08)
[2018-11-27] MEDS: ATORVASTATIN 10 MG TABLET PO SCH (21:54)
[2018-11-28] MEDS: ALBUTEROL/IPRATROPIUM 3 ML NEB RESP TX SCH ×5 (00:47→14:15)
[2018-11-28 05:42] LABS: Blood Urea Nitrogen 8 MG/DL (7-18); Glucose 83 MG/DL (74-106); Osmolality,Calculated 275.4 MOS/KG (273-304); Potassium 3.3 MMOL/L (3.5-5.1); Sodium 140 MMOL/L (136-145)
[2018-11-28 05:50] LABS: Basophils % 0.4 % (0.0-0.8); Eosinophils # 0.2 10*3/uL (0.0-0.87); Eosinophils % 4.6 % (0.00-10.9); Immature Granulocytes % 0.8 %; Immature Granulocytes Absolute 0.04 #; Lymphocytes # 0.6 10*3/uL (1.4-4.0); Lymphocytes % 12.6 % (21.2-54.2); Mean Corpuscular HGB Conc 28.9 GM/DL (32-36); Mean Corpuscular Hemoglobin 29 PG (27-34); Mean Corpuscular Volume 100.3 FL (87-102); Mean Platelet Volume 11.5 FL (9.6-12.0); Monocytes # 0.6 10*3/uL (0.11-0.8); Monocytes % 11.8 % (1.7-12.7); Neutrophils # 3.5 10*3/uL (1.4-7.4); Neutrophils % 69.8 % (38.7-73.9); Platelet Count 119 T/CUMM (130-400); Red Blood Count 3.21 MC/CUMM (3.8-5.5); Red Cell Distribution Width 18.4 % (9.3-17.3)
[2018-11-28 05:52] LABS: Hemoglobin 9.3 GM/DL (14.0-18.0)
[2018-11-28 06:06] LABS: Hypochromasia 1+; Macrocytosis 1+
[2018-11-28 06:07] LABS: Ovalocytes Slight; Platelet Estimate Adequate; Target Cells Slight
[2018-11-28] MEDS: INSULIN LISPRO 100 UNIT/ML SUBCUT SCH ×2 (07:19→12:00)
[2018-11-28] MEDS: THIAMINE 100 MG TABLET PO SCH (09:54)
[2018-11-28] MEDS: ASCORBIC ACID 500 MG TABLET PO SCH (09:54)
[2018-11-28] MEDS: FAMOTIDINE 20 MG TABLET PO SCH (09:55)
[2018-11-28] MEDS: PANTOPRAZOLE 40 MG TABLET PO SCH (09:55)
[2018-11-28] MEDS: hydrALAZINE 25 MG TABLET PO SCH (09:55)
[2018-11-28] MEDS: FOLIC ACID 1 MG TABLET PO SCH (09:55)
[2018-11-28] MEDS: POTASSIUM CHLORIDE 10 MEQ TABLET PO SCH (09:55)
[2018-11-28] MEDS: SULFAMETHOX/TRIMETHOPRIM 800-160 MG TABLET PO SCH (09:55)
[2018-11-28] MEDS: FERROUS SULFATE 325 MG TABLET PO SCH (09:55)
[2018-11-28] MEDS: MULTIVITAMIN (CENTRUM) TABLET PO SCH (09:55)
[2018-11-28] MEDS: GABAPENTIN 400 MG CAPSULE PO SCH (09:55)
[2018-11-28] MEDS: CARVEDILOL 6.25 MG TABLET PO SCH (09:55)
[2018-11-28] MEDS: FUROSEMIDE 40 MG/4 ML VIAL IV SCH (09:56)
[2018-11-28] MEDS: CITALOPRAM 20 MG TABLET PO SCH (10:00)
[2018-11-28] MEDS ORDERED: THEOPHYLLINE ER (24 HR) 400 MG CAPSULE PO SCH (10:00)
[2018-11-28] MEDS: DESITIN 4OZ/NYSTATIN 15 GRAM MIXTURE PASTE TOP SCH (10:11)
[2018-11-28 14:28] VITALS: BP 110/55
== END 2018-11-28 16:20 | disposition hospice, home (50) | DRG 193 ==
LOC: N.ED 08:45 → N.EDINP 11:16 → N.2E 15:14 → N.CC 11-22 12:20 → N.5E 11-26 18:25
PROVIDERS: ADMIT Internal Medicine; ATTEND Internal Medicine

== ENCOUNTER 2019-08-01 06:00 | Inpatient (IN) ==
[2019-08-01] MEDS ORDERED: ONDANSETRON 4 MG/2 ML VIAL ONE (06:16)
[2019-08-01] MEDS ORDERED: ONDANSETRON 4 MG/2 ML VIAL IV STA (06:18)
[2019-08-01 06:36] LABS: Basophils # 0.1 10*3/uL (0.0-0.2); Basophils % 0.5 % (0.0-0.8); Eosinophils # 0.3 10*3/uL (0.0-0.87); Eosinophils % 3.1 % (0.00-10.9); Hemoglobin 12.1 GM/DL (14.0-18.0); Immature Granulocytes % 0.7 %; Immature Granulocytes Absolute 0.06 #; Lymphocytes # 0.7 10*3/uL (1.4-4.0); Lymphocytes % 7.9 % (21.2-54.2); Mean Corpuscular Volume 93.8 FL (87-102); Mean Platelet Volume 10.1 FL (9.6-12.0); Monocytes % 6.6 % (1.7-12.7); Neutrophils % 81.2 % (38.7-73.9); Platelet Count 252 T/CUMM (130-400); Red Blood Count 4.16 MC/CUMM (3.8-5.5); Red Cell Distribution Width 18.5 % (9.3-17.3); White Blood Count 9.2 T/CUMM (4-12)
[2019-08-01] MEDS ORDERED: LEVOFLOXACIN INJ 500 MG in PREMIX 1 EACH IV STA (06:46)
[2019-08-01 06:52] LABS: ABG Base Excess -2.9 MMOL/L (-2.5-2.5); ABG HCO3 21.8 MMOL/L (20-26); ABG PCO2 55.8 MM HG (35-48); ABG PO2 62.2 MM HG (80-95); ABG TCO2 22.8 MMOL/L (23-27); Allen Test Positive
[2019-08-01 06:56] LABS: Albumin 3.3 G/DL (3.4-5.0); Bilirubin,Total 1.1 MG/DL (0.2-1.0); Calcium 8.8 MG/DL (8.5-10.1); Osmolality,Calculated 277.5 MOS/KG (273-304)
[2019-08-01] MEDS ORDERED: ALBUTEROL 2.5 MG/3 ML NEB RESP TX STA (07:46)
[2019-08-01] MEDS ORDERED: methylPREDNISolone SOD SUC 125 MG/2 ML VIAL IV STA (07:51)
[2019-08-01] MEDS ORDERED: ACETAMINOPHEN 325 MG TABLET PO PRN (13:14)
[2019-08-01] MEDS ORDERED: DEXTROSE 10% 25 GM/250 ML BAG IV PRN (13:14)
[2019-08-01] MEDS ORDERED: ONDANSETRON 4 MG/2 ML VIAL IV PRN (13:14)
[2019-08-01] MEDS ORDERED: GLUCAGON 1 MG VIAL IM PRN (13:14)
[2019-08-01] MEDS: INSULIN LISPRO 100 UNIT/ML SUBCUT SCH ×3 (16:36→21:36)
[2019-08-01] MEDS: methylPREDNISolone SOD SUC 40 MG/1 ML VIAL IV SCH (17:13)
[2019-08-01] MEDS: cefTRIAXone 1,000 MG in SYRINGE 1 EACH IV SCH (17:18)
[2019-08-01] MEDS: SODIUM CHLORIDE 0.9% 1,000 ML IV SCH (17:22)
[2019-08-01] MEDS: ALBUTEROL/IPRATROPIUM 3 ML NEB RESP TX SCH (20:34)
[2019-08-01] MEDS: DOCUSATE SODIUM 100 MG CAPSULE PO SCH (22:00)
[2019-08-02] MEDS: ALBUTEROL/IPRATROPIUM 3 ML NEB RESP TX SCH ×7 (00:30→19:47)
[2019-08-02] MEDS: methylPREDNISolone SOD SUC 40 MG/1 ML VIAL IV SCH ×3 (01:30→18:32)
[2019-08-02 04:03] LABS: Hematocrit 34.5 VOL% (42.0-52.0); Hemoglobin 10.6 GM/DL (14.0-18.0); Immature Granulocytes % 0.3 %; Immature Granulocytes Absolute 0.01 #; Lymphocytes # 0.2 10*3/uL (1.4-4.0); Lymphocytes % 5.8 % (21.2-54.2); Mean Corpuscular HGB Conc 30.7 GM/DL (32-36); Mean Corpuscular Volume 93.2 FL (87-102); Mean Platelet Volume 10.6 FL (9.6-12.0); Neutrophils % 91.9 % (38.7-73.9); Platelet Count 190 T/CUMM (130-400); Red Cell Distribution Width 18.3 % (9.3-17.3)
[2019-08-02 04:23] LABS: Albumin 2.8 G/DL (3.4-5.0); Bilirubin,Total 0.9 MG/DL (0.2-1.0); Calcium 8.6 MG/DL (8.5-10.1); Osmolality,Calculated 278.4 MOS/KG (273-304); Total Protein 7.3 G/DL (6.4-8.3)
[2019-08-02 05:00] LABS: Hypochromasia 1+; Lymphocytes 2 % (20-55); Microcytosis 1+; Segmented Neutrophils 98 % (50-85); Total Cells Counted 100
[2019-08-02 05:01] LABS: Ovalocytes Slight
[2019-08-02] MEDS: SODIUM CHLORIDE 0.9% 1,000 ML IV SCH (06:24)
[2019-08-02] MEDS: INSULIN LISPRO 100 UNIT/ML SUBCUT SCH ×4 (08:37→21:31)
[2019-08-02] MEDS: DOCUSATE SODIUM 100 MG CAPSULE PO SCH ×2 (10:52→21:28)
[2019-08-02] MEDS: PANTOPRAZOLE 40 MG TABLET PO SCH (10:52)
[2019-08-02] MEDS ORDERED: DOCUSATE SODIUM 100 MG CAPSULE PO PRN (13:04)
[2019-08-02] MEDS ORDERED: FUROSEMIDE 40 MG/4 ML VIAL IV ONE (13:54)
[2019-08-02] MEDS: RIVAROXABAN 20 MG TABLET PO SCH (18:31)
[2019-08-02] MEDS: cefTRIAXone 1,000 MG in SYRINGE 1 EACH IV SCH (18:35)
[2019-08-02] MEDS: ATORVASTATIN 10 MG TABLET PO SCH (21:28)
[2019-08-02] MEDS: CITALOPRAM 20 MG TABLET PO SCH (21:28)
[2019-08-02] MEDS: GABAPENTIN 400 MG CAPSULE PO SCH (21:29)
[2019-08-02] MEDS: POTASSIUM CHLORIDE 10 MEQ TABLET PO SCH (21:29)
[2019-08-02] MEDS: FERROUS SULFATE 325 MG TABLET PO SCH (21:29)
[2019-08-02] MEDS: carvediloL 6.25 MG TABLET PO SCH (21:30)
[2019-08-03] MEDS: methylPREDNISolone SOD SUC 40 MG/1 ML VIAL IV SCH ×3 (00:32→16:06)
[2019-08-03] MEDS: ALBUTEROL/IPRATROPIUM 3 ML NEB RESP TX SCH ×6 (03:48→23:25)
[2019-08-03 08:47] LABS: Hematocrit 33.3 VOL% (42.0-52.0); Hemoglobin 10.2 GM/DL (14.0-18.0); Immature Granulocytes % 0.5 %; Immature Granulocytes Absolute 0.03 #; Lymphocytes # 0.3 10*3/uL (1.4-4.0); Lymphocytes % 4.4 % (21.2-54.2); Mean Corpuscular HGB Conc 30.6 GM/DL (32-36); Mean Corpuscular Volume 94.1 FL (87-102); Mean Platelet Volume 10.4 FL (9.6-12.0); Monocytes % 4.9 % (1.7-12.7); Neutrophils % 90.2 % (38.7-73.9); Platelet Count 188 T/CUMM (130-400); Red Blood Count 3.54 MC/CUMM (3.8-5.5); Red Cell Distribution Width 18.2 % (9.3-17.3); White Blood Count 6.3 T/CUMM (4-12)
[2019-08-03] MEDS: INSULIN LISPRO 100 UNIT/ML SUBCUT SCH ×4 (08:55→21:58)
[2019-08-03 09:04] LABS: Calcium 8.6 MG/DL (8.5-10.1); Osmolality,Calculated 283.3 MOS/KG (273-304)
[2019-08-03] MEDS: CITALOPRAM 20 MG TABLET PO SCH ×2 (09:08→21:52)
[2019-08-03] MEDS: GABAPENTIN 400 MG CAPSULE PO SCH ×2 (09:08→21:53)
[2019-08-03] MEDS: THEOPHYLLINE ER (24 HR) 400 MG CAPSULE PO SCH (09:08)
[2019-08-03] MEDS: POTASSIUM CHLORIDE 10 MEQ TABLET PO SCH ×2 (09:08→21:53)
[2019-08-03] MEDS: FERROUS SULFATE 325 MG TABLET PO SCH ×3 (09:08→21:55)
[2019-08-03] MEDS: DOCUSATE SODIUM 100 MG CAPSULE PO SCH ×2 (09:08→21:53)
[2019-08-03] MEDS: PANTOPRAZOLE 40 MG TABLET PO SCH (09:08)
[2019-08-03] MEDS: THIAMINE 100 MG TABLET PO SCH (09:08)
[2019-08-03] MEDS: carvediloL 6.25 MG TABLET PO SCH ×2 (09:09→21:53)
[2019-08-03 09:44] LABS: Anisocytosis 2+; Band Neutrophils 9 % (0-10); Hypochromasia 1+; Lymphocytes 5 % (20-55); Macrocytosis 1+; Platelet Estimate Normal; Segmented Neutrophils 82 % (50-85); Total Cells Counted 100
[2019-08-03] MEDS: cefTRIAXone 1,000 MG in SYRINGE 1 EACH IV SCH (16:05)
[2019-08-03] MEDS: RIVAROXABAN 20 MG TABLET PO SCH (16:06)
[2019-08-03] MEDS: ATORVASTATIN 10 MG TABLET PO SCH (21:52)
[2019-08-04] MEDS: methylPREDNISolone SOD SUC 40 MG/1 ML VIAL IV SCH ×3 (00:10→15:54)
[2019-08-04] MEDS: ALBUTEROL/IPRATROPIUM 3 ML NEB RESP TX SCH ×5 (03:27→19:18)
[2019-08-04 04:26] LABS: Hematocrit 34.1 VOL% (42.0-52.0); Hemoglobin 10.4 GM/DL (14.0-18.0); Immature Granulocytes % 0.7 %; Immature Granulocytes Absolute 0.04 #; Lymphocytes # 0.2 10*3/uL (1.4-4.0); Lymphocytes % 4.3 % (21.2-54.2); Mean Corpuscular HGB Conc 30.5 GM/DL (32-36); Mean Corpuscular Volume 94.5 FL (87-102); Mean Platelet Volume 10.6 FL (9.6-12.0); Monocytes % 3.2 % (1.7-12.7); Neutrophils % 91.8 % (38.7-73.9); Platelet Count 166 T/CUMM (130-400); Red Blood Count 3.61 MC/CUMM (3.8-5.5); Red Cell Distribution Width 17.9 % (9.3-17.3); White Blood Count 5.6 T/CUMM (4-12)
[2019-08-04 04:41] LABS: Calcium 8.4 MG/DL (8.5-10.1); Osmolality,Calculated 279.7 MOS/KG (273-304)
[2019-08-04 04:48] LABS: Band Neutrophils 1 % (0-10); Lymphocytes 6 % (20-55); Segmented Neutrophils 92 % (50-85); Total Cells Counted 100
[2019-08-04 04:49] LABS: Anisocytosis 1+; Ovalocytes 1+
[2019-08-04 04:50] LABS: Acanthocytes Few; Platelet Estimate Adequate
[2019-08-04] MEDS: INSULIN LISPRO 100 UNIT/ML SUBCUT SCH ×4 (08:27→21:58)
[2019-08-04] MEDS: carvediloL 6.25 MG TABLET PO SCH ×2 (08:28→21:57)
[2019-08-04] MEDS: THEOPHYLLINE ER (24 HR) 400 MG CAPSULE PO SCH (08:28)
[2019-08-04] MEDS: CITALOPRAM 20 MG TABLET PO SCH ×2 (08:29→21:57)
[2019-08-04] MEDS: PANTOPRAZOLE 40 MG TABLET PO SCH (08:29)
[2019-08-04] MEDS: DOCUSATE SODIUM 100 MG CAPSULE PO SCH ×2 (08:29→21:57)
[2019-08-04] MEDS: THIAMINE 100 MG TABLET PO SCH (08:29)
[2019-08-04] MEDS: GABAPENTIN 400 MG CAPSULE PO SCH ×2 (08:29→21:57)
[2019-08-04] MEDS: POTASSIUM CHLORIDE 10 MEQ TABLET PO SCH ×2 (08:30→21:57)
[2019-08-04] MEDS: FERROUS SULFATE 325 MG TABLET PO SCH ×2 (08:32→21:58)
[2019-08-04] MEDS: cefTRIAXone 1,000 MG in SYRINGE 1 EACH IV SCH (17:03)
[2019-08-04] MEDS: RIVAROXABAN 20 MG TABLET PO SCH (17:03)
[2019-08-04] MEDS: ATORVASTATIN 10 MG TABLET PO SCH (21:57)
[2019-08-05] MEDS: ALBUTEROL/IPRATROPIUM 3 ML NEB RESP TX SCH ×6 (00:17→20:53)
[2019-08-05] MEDS: methylPREDNISolone SOD SUC 40 MG/1 ML VIAL IV SCH ×3 (00:57→20:59)
[2019-08-05 05:13] LABS: Hematocrit 36.7 VOL% (42.0-52.0); Hemoglobin 11.1 GM/DL (14.0-18.0); Immature Granulocytes % 0.6 %; Immature Granulocytes Absolute 0.04 #; Lymphocytes # 0.2 10*3/uL (1.4-4.0); Lymphocytes % 3.1 % (21.2-54.2); Mean Corpuscular HGB Conc 30.2 GM/DL (32-36); Mean Corpuscular Volume 94.1 FL (87-102); Mean Platelet Volume 10.5 FL (9.6-12.0); Neutrophils % 92.3 % (38.7-73.9); Platelet Count 199 T/CUMM (130-400); Red Cell Distribution Width 17.9 % (9.3-17.3)
[2019-08-05 05:38] LABS: Calcium 8.3 MG/DL (8.5-10.1); Osmolality,Calculated 280.7 MOS/KG (273-304)
[2019-08-05 05:41] LABS: Platelet Estimate Normal; Segmented Neutrophils 98 % (50-85); Total Cells Counted 100
[2019-08-05 05:44] LABS: Anisocytosis 1+; Microcytosis Slight; Ovalocytes Slight; Target Cells Slight
[2019-08-05] MEDS: CITALOPRAM 20 MG TABLET PO SCH ×2 (08:39→20:59)
[2019-08-05] MEDS: THIAMINE 100 MG TABLET PO SCH (08:40)
[2019-08-05] MEDS: PANTOPRAZOLE 40 MG TABLET PO SCH (08:40)
[2019-08-05] MEDS: GABAPENTIN 400 MG CAPSULE PO SCH ×2 (08:40→21:00)
[2019-08-05] MEDS: POTASSIUM CHLORIDE 10 MEQ TABLET PO SCH ×2 (08:40→21:00)
[2019-08-05] MEDS: carvediloL 6.25 MG TABLET PO SCH ×2 (08:40→20:59)
[2019-08-05] MEDS: INSULIN LISPRO 100 UNIT/ML SUBCUT SCH ×4 (08:47→21:00)
[2019-08-05] MEDS: FERROUS SULFATE 325 MG TABLET PO SCH ×2 (09:14→21:00)
[2019-08-05] MEDS: THEOPHYLLINE ER (24 HR) 400 MG CAPSULE PO SCH (09:16)
[2019-08-05] MEDS: DOCUSATE SODIUM 100 MG CAPSULE PO SCH ×2 (09:30→21:00)
[2019-08-05] MEDS ORDERED: methylPREDNISolone SOD SUC 40 MG/1 ML VIAL IV SCH (16:00)
[2019-08-05] MEDS: RIVAROXABAN 20 MG TABLET PO SCH (16:52)
[2019-08-05] MEDS: cefTRIAXone 1,000 MG in SYRINGE 1 EACH IV SCH (16:53)
[2019-08-05] MEDS: ATORVASTATIN 10 MG TABLET PO SCH (21:00)
[2019-08-06] MEDS: ALBUTEROL/IPRATROPIUM 3 ML NEB RESP TX SCH ×6 (00:17→21:16)
[2019-08-06 05:05] LABS: Hematocrit 36.3 VOL% (42.0-52.0); Hemoglobin 11.2 GM/DL (14.0-18.0); Immature Granulocytes % 0.9 %; Immature Granulocytes Absolute 0.08 #; Lymphocytes # 0.2 10*3/uL (1.4-4.0); Lymphocytes % 2.5 % (21.2-54.2); Mean Corpuscular HGB Conc 30.9 GM/DL (32-36); Mean Corpuscular Volume 93.3 FL (87-102); Monocytes % 3.4 % (1.7-12.7); Neutrophils % 93.2 % (38.7-73.9); Platelet Count 185 T/CUMM (130-400); Red Blood Count 3.89 MC/CUMM (3.8-5.5); Red Cell Distribution Width 17.9 % (9.3-17.3); White Blood Count 8.8 T/CUMM (4-12)
[2019-08-06 05:35] LABS: Calcium 8.3 MG/DL (8.5-10.1); Osmolality,Calculated 282.5 MOS/KG (273-304)
[2019-08-06 06:08] LABS: Band Neutrophils 1 % (0-10); Lymphocytes 2 % (20-55); Segmented Neutrophils 95 % (50-85); Total Cells Counted 100
[2019-08-06 06:09] LABS: Anisocytosis 1+; Hypochromasia 2+; Ovalocytes Few
[2019-08-06 06:10] LABS: Acanthocytes Few; Platelet Estimate Normal
[2019-08-06] MEDS: carvediloL 6.25 MG TABLET PO SCH ×2 (08:27→20:47)
[2019-08-06] MEDS: DOCUSATE SODIUM 100 MG CAPSULE PO SCH ×2 (08:27→20:47)
[2019-08-06] MEDS: THEOPHYLLINE ER (24 HR) 400 MG CAPSULE PO SCH (08:27)
[2019-08-06] MEDS: FERROUS SULFATE 325 MG TABLET PO SCH ×2 (08:27→20:48)
[2019-08-06] MEDS: POTASSIUM CHLORIDE 10 MEQ TABLET PO SCH ×2 (08:27→20:46)
[2019-08-06] MEDS: GABAPENTIN 400 MG CAPSULE PO SCH ×2 (08:27→20:47)
[2019-08-06] MEDS: PANTOPRAZOLE 40 MG TABLET PO SCH (08:27)
[2019-08-06] MEDS: CITALOPRAM 20 MG TABLET PO SCH ×2 (08:27→20:46)
[2019-08-06] MEDS: methylPREDNISolone SOD SUC 40 MG/1 ML VIAL IV SCH ×2 (08:27→20:48)
[2019-08-06] MEDS: THIAMINE 100 MG TABLET PO SCH (08:27)
[2019-08-06] MEDS: INSULIN LISPRO 100 UNIT/ML SUBCUT SCH ×4 (08:28→20:48)
[2019-08-06] MEDS: cefTRIAXone 1,000 MG in SYRINGE 1 EACH IV SCH (16:33)
[2019-08-06] MEDS: RIVAROXABAN 20 MG TABLET PO SCH (16:33)
[2019-08-06] MEDS: ATORVASTATIN 10 MG TABLET PO SCH (20:47)
[2019-08-07] MEDS: ALBUTEROL/IPRATROPIUM 3 ML NEB RESP TX SCH ×6 (00:27→19:13)
[2019-08-07 04:52] LABS: Basophils % 0.1 % (0.0-0.8); Hematocrit 37.2 VOL% (42.0-52.0); Hemoglobin 11.6 GM/DL (14.0-18.0); Immature Granulocytes % 1.4 %; Immature Granulocytes Absolute 0.12 #; Lymphocytes # 0.3 10*3/uL (1.4-4.0); Lymphocytes % 3.1 % (21.2-54.2); Mean Corpuscular HGB Conc 31.2 GM/DL (32-36); Mean Corpuscular Volume 92.3 FL (87-102); Mean Platelet Volume 11.5 FL (9.6-12.0); Monocytes % 2.5 % (1.7-12.7); Neutrophils % 92.9 % (38.7-73.9); Platelet Count 198 T/CUMM (130-400); Red Blood Count 4.03 MC/CUMM (3.8-5.5); Red Cell Distribution Width 17.9 % (9.3-17.3); White Blood Count 8.7 T/CUMM (4-12)
[2019-08-07 05:30] LABS: Calcium 8.7 MG/DL (8.5-10.1); Osmolality,Calculated 283.4 MOS/KG (273-304)
[2019-08-07 05:33] LABS: Band Neutrophils 1 % (0-10); Hypochromasia 1+; Lymphocytes 1 % (20-55); Metamyelocytes 1 %; Microcytosis Slight; Ovalocytes Few; Segmented Neutrophils 93 % (50-85); Total Cells Counted 100
[2019-08-07 05:34] LABS: Acanthocytes Few; Platelet Estimate Adequate
[2019-08-07] MEDS: POTASSIUM CHLORIDE 10 MEQ TABLET PO SCH ×2 (09:07→21:35)
[2019-08-07] MEDS: methylPREDNISolone SOD SUC 40 MG/1 ML VIAL IV SCH ×2 (09:07→21:34)
[2019-08-07] MEDS: FERROUS SULFATE 325 MG TABLET PO SCH ×2 (09:07→21:35)
[2019-08-07] MEDS: PANTOPRAZOLE 40 MG TABLET PO SCH (09:08)
[2019-08-07] MEDS: THEOPHYLLINE ER (24 HR) 400 MG CAPSULE PO SCH (09:08)
[2019-08-07] MEDS: DOCUSATE SODIUM 100 MG CAPSULE PO SCH ×2 (09:08→21:34)
[2019-08-07] MEDS: THIAMINE 100 MG TABLET PO SCH (09:09)
[2019-08-07] MEDS: CITALOPRAM 20 MG TABLET PO SCH ×2 (09:09→21:34)
[2019-08-07] MEDS: GABAPENTIN 400 MG CAPSULE PO SCH ×2 (09:09→21:34)
[2019-08-07] MEDS: carvediloL 6.25 MG TABLET PO SCH ×2 (09:10→21:34)
[2019-08-07] MEDS: INSULIN LISPRO 100 UNIT/ML SUBCUT SCH ×4 (09:10→21:35)
[2019-08-07 13:32] LABS: Troponin I 0.019 NG/ML (0.00-0.045)
[2019-08-07] MEDS: RIVAROXABAN 20 MG TABLET PO SCH (16:18)
[2019-08-07] MEDS: cefTRIAXone 1,000 MG in SYRINGE 1 EACH IV SCH (16:18)
[2019-08-07] MEDS: ATORVASTATIN 10 MG TABLET PO SCH (21:34)
[2019-08-08] MEDS: ALBUTEROL/IPRATROPIUM 3 ML NEB RESP TX SCH ×7 (01:09→23:38)
[2019-08-08 04:59] LABS: Basophils % 0.2 % (0.0-0.8); Hematocrit 36.7 VOL% (42.0-52.0); Hemoglobin 11.5 GM/DL (14.0-18.0); Lymphocytes # 0.3 10*3/uL (1.4-4.0); Lymphocytes % 2.9 % (21.2-54.2); Mean Corpuscular HGB Conc 31.3 GM/DL (32-36); Mean Platelet Volume 11.6 FL (9.6-12.0); Monocytes % 2.7 % (1.7-12.7); Neutrophils % 93.2 % (38.7-73.9); Platelet Count 208 T/CUMM (130-400); Red Blood Count 3.99 MC/CUMM (3.8-5.5); Red Cell Distribution Width 18.1 % (9.3-17.3); White Blood Count 9.7 T/CUMM (4-12)
[2019-08-08 05:39] LABS: Band Neutrophils 2 % (0-10); Lymphocytes 2 % (20-55); Segmented Neutrophils 94 % (50-85); Total Cells Counted 100
[2019-08-08 05:40] LABS: Hypochromasia Slight; Platelet Estimate Normal
[2019-08-08 06:32] LABS: Calcium 8.2 MG/DL (8.5-10.1); Osmolality,Calculated 283.5 MOS/KG (273-304)
[2019-08-08] MEDS: THEOPHYLLINE ER (24 HR) 400 MG CAPSULE PO SCH (08:57)
[2019-08-08] MEDS: PANTOPRAZOLE 40 MG TABLET PO SCH (08:57)
[2019-08-08] MEDS: DOCUSATE SODIUM 100 MG CAPSULE PO SCH ×2 (08:57→20:37)
[2019-08-08] MEDS: POTASSIUM CHLORIDE 10 MEQ TABLET PO SCH ×2 (08:58→20:37)
[2019-08-08] MEDS: CITALOPRAM 20 MG TABLET PO SCH ×2 (08:58→20:36)
[2019-08-08] MEDS: GABAPENTIN 400 MG CAPSULE PO SCH ×2 (08:58→20:36)
[2019-08-08] MEDS: THIAMINE 100 MG TABLET PO SCH (08:58)
[2019-08-08] MEDS: predniSONE 20 MG TABLET PO SCH (08:58)
[2019-08-08] MEDS: FERROUS SULFATE 325 MG TABLET PO SCH ×4 (08:58→20:40)
[2019-08-08] MEDS: carvediloL 6.25 MG TABLET PO SCH ×2 (08:58→20:36)
[2019-08-08] MEDS: INSULIN LISPRO 100 UNIT/ML SUBCUT SCH ×5 (08:59→20:46)
[2019-08-08] MEDS: KETOROLAC 0.5% OPH SOLN 5 ML BOTTLE BOTH EYES SCH ×2 (10:44→20:36)
[2019-08-08] MEDS: OFLOXACIN 0.3% OPH SOLN 5 ML BOTTLE BOTH EYES SCH ×2 (10:45→20:35)
[2019-08-08] MEDS: prednisoLONE ACETATE 1% OPH SUSP 5 ML BOTTLE BOTH EYES SCH ×2 (10:45→20:35)
[2019-08-08] MEDS ORDERED: TUBERCULIN SKIN TEST 0.1 ML SYRINGE INTRADERM ONE (12:45)
[2019-08-08] MEDS: RIVAROXABAN 20 MG TABLET PO SCH (16:54)
[2019-08-08] MEDS: cefTRIAXone 1,000 MG in SYRINGE 1 EACH IV SCH (16:54)
[2019-08-08] MEDS: ATORVASTATIN 10 MG TABLET PO SCH (20:37)
[2019-08-09] MEDS: ALBUTEROL/IPRATROPIUM 3 ML NEB RESP TX SCH ×5 (03:24→20:29)
[2019-08-09] MEDS ORDERED: REGADENOSON 0.4 MG/5 ML SYRINGE IV ONE (06:04)
[2019-08-09] MEDS: KETOROLAC 0.5% OPH SOLN 5 ML BOTTLE BOTH EYES SCH ×2 (10:31→21:44)
[2019-08-09] MEDS: INSULIN LISPRO 100 UNIT/ML SUBCUT SCH ×4 (10:31→21:45)
[2019-08-09] MEDS: FERROUS SULFATE 325 MG TABLET PO SCH ×2 (10:32→21:45)
[2019-08-09] MEDS: DOCUSATE SODIUM 100 MG CAPSULE PO SCH ×2 (10:32→21:45)
[2019-08-09] MEDS: CITALOPRAM 20 MG TABLET PO SCH ×2 (10:32→21:45)
[2019-08-09] MEDS: carvediloL 6.25 MG TABLET PO SCH ×2 (10:32→21:44)
[2019-08-09] MEDS: GABAPENTIN 400 MG CAPSULE PO SCH ×2 (10:33→21:44)
[2019-08-09] MEDS: POTASSIUM CHLORIDE 10 MEQ TABLET PO SCH ×2 (10:33→21:45)
[2019-08-09] MEDS: PANTOPRAZOLE 40 MG TABLET PO SCH (10:33)
[2019-08-09] MEDS: THIAMINE 100 MG TABLET PO SCH (10:33)
[2019-08-09] MEDS: OFLOXACIN 0.3% OPH SOLN 5 ML BOTTLE BOTH EYES SCH ×2 (10:33→21:44)
[2019-08-09] MEDS: predniSONE 20 MG TABLET PO SCH (10:33)
[2019-08-09] MEDS: prednisoLONE ACETATE 1% OPH SUSP 5 ML BOTTLE BOTH EYES SCH ×2 (10:33→21:44)
[2019-08-09] MEDS: THEOPHYLLINE ER (24 HR) 400 MG CAPSULE PO SCH (10:33)
[2019-08-09] MEDS ORDERED: DEXTROSE 50% 25 GM/50 ML VIAL IV PRN (13:19)
[2019-08-09] MEDS ORDERED: GLUCAGON 1 MG VIAL IM PRN (13:19)
[2019-08-09] MEDS: RIVAROXABAN 20 MG TABLET PO SCH (17:32)
[2019-08-09] MEDS: ATORVASTATIN 10 MG TABLET PO SCH (21:45)
[2019-08-10] MEDS: ALBUTEROL/IPRATROPIUM 3 ML NEB RESP TX SCH ×6 (00:18→19:38)
[2019-08-10] MEDS: prednisoLONE ACETATE 1% OPH SUSP 5 ML BOTTLE BOTH EYES SCH ×2 (09:28→22:13)
[2019-08-10] MEDS: THEOPHYLLINE ER (24 HR) 400 MG CAPSULE PO SCH (09:30)
[2019-08-10] MEDS: carvediloL 6.25 MG TABLET PO SCH ×2 (09:30→22:12)
[2019-08-10] MEDS: FERROUS SULFATE 325 MG TABLET PO SCH ×2 (09:30→22:12)
[2019-08-10] MEDS: THIAMINE 100 MG TABLET PO SCH (09:30)
[2019-08-10] MEDS: PANTOPRAZOLE 40 MG TABLET PO SCH (09:31)
[2019-08-10] MEDS: CITALOPRAM 20 MG TABLET PO SCH ×2 (09:31→22:11)
[2019-08-10] MEDS: POTASSIUM CHLORIDE 10 MEQ TABLET PO SCH ×2 (09:31→22:11)
[2019-08-10] MEDS: OFLOXACIN 0.3% OPH SOLN 5 ML BOTTLE BOTH EYES SCH ×2 (09:31→22:13)
[2019-08-10] MEDS: predniSONE 20 MG TABLET PO SCH (09:31)
[2019-08-10] MEDS: GABAPENTIN 400 MG CAPSULE PO SCH ×2 (09:32→22:11)
[2019-08-10] MEDS: INSULIN LISPRO 100 UNIT/ML SUBCUT SCH ×4 (09:32→22:12)
[2019-08-10] MEDS: KETOROLAC 0.5% OPH SOLN 5 ML BOTTLE BOTH EYES SCH ×2 (09:32→22:12)
[2019-08-10] MEDS: DOCUSATE SODIUM 100 MG CAPSULE PO SCH ×2 (09:35→22:11)
[2019-08-10] MEDS: RIVAROXABAN 20 MG TABLET PO SCH (16:59)
[2019-08-10] MEDS: ATORVASTATIN 10 MG TABLET PO SCH (22:11)
[2019-08-11] MEDS: ALBUTEROL/IPRATROPIUM 3 ML NEB RESP TX SCH ×7 (00:02→23:09)
[2019-08-11 05:20] LABS: Basophils % 0.1 % (0.0-0.8); Hematocrit 36.4 VOL% (42.0-52.0); Hemoglobin 11.4 GM/DL (14.0-18.0); Immature Granulocytes % 1.1 %; Immature Granulocytes Absolute 0.09 #; Lymphocytes # 0.4 10*3/uL (1.4-4.0); Lymphocytes % 4.8 % (21.2-54.2); Mean Corpuscular HGB Conc 31.3 GM/DL (32-36); Mean Corpuscular Volume 92.6 FL (87-102); Mean Platelet Volume 11.8 FL (9.6-12.0); Platelet Count 176 T/CUMM (130-400); Red Blood Count 3.93 MC/CUMM (3.8-5.5); Red Cell Distribution Width 18.1 % (9.3-17.3); White Blood Count 8.5 T/CUMM (4-12)
[2019-08-11 05:43] LABS: Calcium 8.2 MG/DL (8.5-10.1); Osmolality,Calculated 283.4 MOS/KG (273-304)
[2019-08-11 06:16] LABS: Hypochromasia Slight; Platelet Estimate Normal; Polychromasia Few
[2019-08-11] MEDS: KETOROLAC 0.5% OPH SOLN 5 ML BOTTLE BOTH EYES SCH ×2 (10:26→22:30)
[2019-08-11] MEDS: OFLOXACIN 0.3% OPH SOLN 5 ML BOTTLE BOTH EYES SCH ×2 (10:27→22:30)
[2019-08-11] MEDS: predniSONE 20 MG TABLET PO SCH (10:27)
[2019-08-11] MEDS: prednisoLONE ACETATE 1% OPH SUSP 5 ML BOTTLE BOTH EYES SCH ×2 (10:27→22:30)
[2019-08-11] MEDS: GABAPENTIN 400 MG CAPSULE PO SCH ×2 (10:27→22:29)
[2019-08-11] MEDS: POTASSIUM CHLORIDE 10 MEQ TABLET PO SCH ×2 (10:28→22:29)
[2019-08-11] MEDS: PANTOPRAZOLE 40 MG TABLET PO SCH (10:28)
[2019-08-11] MEDS: carvediloL 6.25 MG TABLET PO SCH ×2 (10:28→22:29)
[2019-08-11] MEDS: THEOPHYLLINE ER (24 HR) 400 MG CAPSULE PO SCH (10:28)
[2019-08-11] MEDS: THIAMINE 100 MG TABLET PO SCH (10:28)
[2019-08-11] MEDS: DOCUSATE SODIUM 100 MG CAPSULE PO SCH ×2 (10:28→22:29)
[2019-08-11] MEDS: FERROUS SULFATE 325 MG TABLET PO SCH ×2 (10:28→22:31)
[2019-08-11] MEDS: CITALOPRAM 20 MG TABLET PO SCH ×2 (10:29→22:29)
[2019-08-11] MEDS: INSULIN LISPRO 100 UNIT/ML SUBCUT SCH ×4 (10:29→22:30)
[2019-08-11] MEDS: RIVAROXABAN 20 MG TABLET PO SCH (17:50)
[2019-08-11] MEDS: ATORVASTATIN 10 MG TABLET PO SCH (22:29)
[2019-08-12] MEDS: ALBUTEROL/IPRATROPIUM 3 ML NEB RESP TX SCH ×6 (03:06→23:09)
[2019-08-12] MEDS: KETOROLAC 0.5% OPH SOLN 5 ML BOTTLE BOTH EYES SCH ×2 (08:54→21:21)
[2019-08-12] MEDS: OFLOXACIN 0.3% OPH SOLN 5 ML BOTTLE BOTH EYES SCH ×2 (08:54→21:21)
[2019-08-12] MEDS: POTASSIUM CHLORIDE 10 MEQ TABLET PO SCH ×2 (08:54→21:21)
[2019-08-12] MEDS: prednisoLONE ACETATE 1% OPH SUSP 5 ML BOTTLE BOTH EYES SCH ×2 (08:54→21:22)
[2019-08-12] MEDS: predniSONE 20 MG TABLET PO SCH (08:55)
[2019-08-12] MEDS: DOCUSATE SODIUM 100 MG CAPSULE PO SCH ×2 (08:55→21:21)
[2019-08-12] MEDS: THIAMINE 100 MG TABLET PO SCH (08:55)
[2019-08-12] MEDS: PANTOPRAZOLE 40 MG TABLET PO SCH (08:55)
[2019-08-12] MEDS: GABAPENTIN 400 MG CAPSULE PO SCH ×2 (08:55→21:21)
[2019-08-12] MEDS: THEOPHYLLINE ER (24 HR) 400 MG CAPSULE PO SCH (08:55)
[2019-08-12] MEDS: CITALOPRAM 20 MG TABLET PO SCH ×2 (08:55→21:21)
[2019-08-12] MEDS: FERROUS SULFATE 325 MG TABLET PO SCH ×3 (08:55→22:40)
[2019-08-12] MEDS: carvediloL 6.25 MG TABLET PO SCH ×2 (08:56→21:21)
[2019-08-12] MEDS: INSULIN LISPRO 100 UNIT/ML SUBCUT SCH ×4 (09:10→22:40)
[2019-08-12] MEDS: RIVAROXABAN 20 MG TABLET PO SCH (16:36)
[2019-08-12] MEDS: ATORVASTATIN 10 MG TABLET PO SCH (21:21)
[2019-08-13] MEDS: ALBUTEROL/IPRATROPIUM 3 ML NEB RESP TX SCH ×5 (03:46→18:57)
[2019-08-13] MEDS: predniSONE 20 MG TABLET PO SCH (09:16)
[2019-08-13] MEDS: GABAPENTIN 400 MG CAPSULE PO SCH ×2 (09:16→21:05)
[2019-08-13] MEDS: carvediloL 6.25 MG TABLET PO SCH ×2 (09:16→21:05)
[2019-08-13] MEDS: THIAMINE 100 MG TABLET PO SCH (09:16)
[2019-08-13] MEDS: CITALOPRAM 20 MG TABLET PO SCH ×2 (09:16→21:05)
[2019-08-13] MEDS: THEOPHYLLINE ER (24 HR) 400 MG CAPSULE PO SCH (09:16)
[2019-08-13] MEDS: POTASSIUM CHLORIDE 10 MEQ TABLET PO SCH ×2 (09:16→21:05)
[2019-08-13] MEDS: PANTOPRAZOLE 40 MG TABLET PO SCH (09:16)
[2019-08-13] MEDS: DOCUSATE SODIUM 100 MG CAPSULE PO SCH ×2 (09:16→21:05)
[2019-08-13] MEDS: KETOROLAC 0.5% OPH SOLN 5 ML BOTTLE BOTH EYES SCH ×2 (09:17→21:06)
[2019-08-13] MEDS: prednisoLONE ACETATE 1% OPH SUSP 5 ML BOTTLE BOTH EYES SCH ×2 (09:17→21:06)
[2019-08-13] MEDS: OFLOXACIN 0.3% OPH SOLN 5 ML BOTTLE BOTH EYES SCH ×2 (09:17→21:06)
[2019-08-13] MEDS: INSULIN LISPRO 100 UNIT/ML SUBCUT SCH ×4 (09:25→21:06)
[2019-08-13] MEDS: FERROUS SULFATE 325 MG TABLET PO SCH ×2 (09:25→21:53)
[2019-08-13] MEDS: RIVAROXABAN 20 MG TABLET PO SCH (16:10)
[2019-08-13] MEDS: ATORVASTATIN 10 MG TABLET PO SCH (21:05)
[2019-08-14] MEDS: ALBUTEROL/IPRATROPIUM 3 ML NEB RESP TX SCH ×6 (00:31→19:10)
[2019-08-14 06:57] LABS: Basophils % 0.1 % (0.0-0.8); Eosinophils % 0.4 % (0.00-10.9); Hematocrit 38.2 VOL% (42.0-52.0); Hemoglobin 11.8 GM/DL (14.0-18.0); Immature Granulocytes % 0.6 %; Immature Granulocytes Absolute 0.05 #; Lymphocytes # 0.8 10*3/uL (1.4-4.0); Lymphocytes % 8.9 % (21.2-54.2); Mean Corpuscular HGB Conc 30.9 GM/DL (32-36); Mean Corpuscular Volume 94.1 FL (87-102); Mean Platelet Volume 11.9 FL (9.6-12.0); Platelet Count 191 T/CUMM (130-400); Red Blood Count 4.06 MC/CUMM (3.8-5.5); Red Cell Distribution Width 18.6 % (9.3-17.3); White Blood Count 8.5 T/CUMM (4-12)
[2019-08-14 07:27] LABS: Osmolality,Calculated 283.1 MOS/KG (273-304)
[2019-08-14] MEDS: INSULIN LISPRO 100 UNIT/ML SUBCUT SCH ×3 (08:44→16:26)
[2019-08-14] MEDS: CITALOPRAM 20 MG TABLET PO SCH (08:45)
[2019-08-14] MEDS: THIAMINE 100 MG TABLET PO SCH (08:46)
[2019-08-14] MEDS: THEOPHYLLINE ER (24 HR) 400 MG CAPSULE PO SCH (08:46)
[2019-08-14] MEDS: GABAPENTIN 400 MG CAPSULE PO SCH (08:46)
[2019-08-14] MEDS: DOCUSATE SODIUM 100 MG CAPSULE PO SCH (08:46)
[2019-08-14] MEDS: PANTOPRAZOLE 40 MG TABLET PO SCH (08:47)
[2019-08-14] MEDS: FERROUS SULFATE 325 MG TABLET PO SCH (08:47)
[2019-08-14] MEDS: POTASSIUM CHLORIDE 10 MEQ TABLET PO SCH (08:47)
[2019-08-14] MEDS: carvediloL 6.25 MG TABLET PO SCH (08:47)
[2019-08-14] MEDS: predniSONE 20 MG TABLET PO SCH (08:47)
[2019-08-14] MEDS: OFLOXACIN 0.3% OPH SOLN 5 ML BOTTLE BOTH EYES SCH (08:52)
[2019-08-14] MEDS: KETOROLAC 0.5% OPH SOLN 5 ML BOTTLE BOTH EYES SCH (08:53)
[2019-08-14] MEDS: prednisoLONE ACETATE 1% OPH SUSP 5 ML BOTTLE BOTH EYES SCH (08:55)
[2019-08-14] MEDS: RIVAROXABAN 20 MG TABLET PO SCH (17:12)
[2019-08-15] MEDS: CITALOPRAM 20 MG TABLET PO SCH ×2 (00:10→09:07)
[2019-08-15] MEDS: carvediloL 6.25 MG TABLET PO SCH ×2 (00:10→09:09)
[2019-08-15] MEDS: ATORVASTATIN 10 MG TABLET PO SCH (00:11)
[2019-08-15] MEDS: DOCUSATE SODIUM 100 MG CAPSULE PO SCH ×2 (00:12→09:09)
[2019-08-15] MEDS: FERROUS SULFATE 325 MG TABLET PO SCH ×2 (00:12→09:14)
[2019-08-15] MEDS: GABAPENTIN 400 MG CAPSULE PO SCH ×2 (00:14→09:09)
[2019-08-15] MEDS: POTASSIUM CHLORIDE 10 MEQ TABLET PO SCH ×2 (00:15→09:07)
[2019-08-15] MEDS: prednisoLONE ACETATE 1% OPH SUSP 5 ML BOTTLE BOTH EYES SCH (00:17)
[2019-08-15] MEDS: OFLOXACIN 0.3% OPH SOLN 5 ML BOTTLE BOTH EYES SCH (00:19)
[2019-08-15] MEDS: KETOROLAC 0.5% OPH SOLN 5 ML BOTTLE BOTH EYES SCH (00:20)
[2019-08-15] MEDS: INSULIN LISPRO 100 UNIT/ML SUBCUT SCH ×3 (00:22→14:25)
[2019-08-15] MEDS: ALBUTEROL/IPRATROPIUM 3 ML NEB RESP TX SCH ×4 (00:42→12:10)
[2019-08-15] MEDS ORDERED: prednisoLONE ACETATE 1% OPH SUSP 5 ML BOTTLE RIGHT EYE SCH (09:00)
[2019-08-15] MEDS ORDERED: KETOROLAC 0.5% OPH SOLN 5 ML BOTTLE RIGHT EYE SCH (09:00)
[2019-08-15] MEDS ORDERED: predniSONE 20 MG TABLET PO SCH (09:00)
[2019-08-15] MEDS ORDERED: OFLOXACIN 0.3% OPH SOLN 5 ML BOTTLE RIGHT EYE SCH (09:00)
[2019-08-15] MEDS: THEOPHYLLINE ER (24 HR) 400 MG CAPSULE PO SCH (09:07)
[2019-08-15] MEDS: PANTOPRAZOLE 40 MG TABLET PO SCH (09:09)
[2019-08-15] MEDS: THIAMINE 100 MG TABLET PO SCH (09:09)
[2019-08-15 14:05] VITALS: BP 131/74
== END 2019-08-15 14:47 | DRG 189 ==
LOC: EDBD → EDUNIT# → N.ED 06:00 → N.EDINP 09:14 → N.TELES 12:07
PROVIDERS: ADMIT Family Medicine; ATTEND Family Medicine

== ENCOUNTER 2019-08-22 04:46 | Inpatient (IN) ==
[2019-08-22] MEDS ORDERED: ALBUTEROL 2.5 MG/3 ML NEB RESP TX STA (06:36)
[2019-08-22 07:08] LABS: Basophils % 0.2 % (0.0-0.8); Eosinophils % 0.1 % (0.00-10.9); Hematocrit 39.3 VOL% (42.0-52.0); Immature Granulocytes % 0.8 %; Lymphocytes # 0.5 10*3/uL (1.4-4.0); Lymphocytes % 3.6 % (21.2-54.2); Mean Corpuscular HGB Conc 30.5 GM/DL (32-36); Mean Corpuscular Volume 96.8 FL (87-102); Mean Platelet Volume 11.6 FL (9.6-12.0); Monocytes % 5.8 % (1.7-12.7); Neutrophils % 89.5 % (38.7-73.9); Platelet Count 76 T/CUMM (130-400); Red Blood Count 4.06 MC/CUMM (3.8-5.5); Red Cell Distribution Width 19.9 % (9.3-17.3); White Blood Count 12.5 T/CUMM (4-12)
[2019-08-22 07:10] LABS: ABG Base Excess 8.1 MMOL/L (-2.5-2.5); ABG HCO3 31.9 MMOL/L (20-26); ABG Oxygen Saturation 96.3 % (95-100); ABG PH 7.385 (7.35-7.45); ABG PO2 83.4 MM HG (80-95); ABG TCO2 31.3 MMOL/L (23-27); Allen Test Positive
[2019-08-22 07:14] LABS: INR 1.8; PT Patient Result 19.7 SECS (9.6-12.2); Partial Thromboplastin Time 37.1 SECS (20.8-36.0)
[2019-08-22 07:31] LABS: Band Neutrophils 11 % (0-10); Lymphocytes 4 % (20-55); Platelet Estimate Decreased; Segmented Neutrophils 83 % (50-85); Total Cells Counted 100
[2019-08-22 07:32] LABS: Albumin 2.8 G/DL (3.4-5.0); Anisocytosis 2+; Bilirubin,Total 2.4 MG/DL (0.2-1.0); Calcium 8.7 MG/DL (8.5-10.1); Macrocytosis 1+; Osmolality,Calculated 281.7 MOS/KG (273-304); Total Protein 6.4 G/DL (6.4-8.3)
[2019-08-22] MEDS ORDERED: LEVOFLOXACIN INJ 500 MG in PREMIX 1 EACH IV STA (08:38)
[2019-08-22] MEDS ORDERED: ONDANSETRON 4 MG/2 ML VIAL IV PRN (09:54)
[2019-08-22] MEDS ORDERED: FUROSEMIDE 40 MG/4 ML VIAL IV ONE (16:33)
[2019-08-22] MEDS: RIVAROXABAN 20 MG TABLET PO SCH (18:18)
[2019-08-22] MEDS: TORSEMIDE 20 MG TABLET PO SCH (18:18)
[2019-08-22] MEDS: ALBUTEROL/IPRATROPIUM 3 ML NEB RESP TX SCH ×2 (18:56→22:31)
[2019-08-22] MEDS: CITALOPRAM 20 MG TABLET PO SCH (20:49)
[2019-08-22] MEDS: ACETAMINOPHEN 325 MG TABLET PO PRN (20:49)
[2019-08-22] MEDS: POTASSIUM CHLORIDE 10 MEQ TABLET PO SCH (20:49)
[2019-08-22] MEDS: GABAPENTIN 400 MG CAPSULE PO SCH (20:50)
[2019-08-22] MEDS: FERROUS SULFATE 325 MG TABLET PO SCH (20:50)
[2019-08-22] MEDS: ATORVASTATIN 10 MG TABLET PO SCH (20:50)
[2019-08-22] MEDS: ASCORBIC ACID 500 MG TABLET PO SCH (20:50)
[2019-08-22] MEDS: hydrALAZINE 25 MG TABLET PO SCH (20:50)
[2019-08-22] MEDS: prednisoLONE ACETATE 1% OPH SUSP 5 ML BOTTLE BOTH EYES SCH (20:51)
[2019-08-22] MEDS: KETOROLAC 0.5% OPH SOLN 5 ML BOTTLE BOTH EYES SCH (20:51)
[2019-08-22] MEDS: DOCUSATE SODIUM 100 MG CAPSULE PO SCH (20:51)
[2019-08-22] MEDS: OFLOXACIN 0.3% OPH SOLN 5 ML BOTTLE BOTH EYES SCH (20:51)
[2019-08-22] MEDS: carvediloL 6.25 MG TABLET PO SCH (20:51)
[2019-08-23] MEDS: ALBUTEROL/IPRATROPIUM 3 ML NEB RESP TX SCH ×6 (02:28→23:55)
[2019-08-23 04:57] LABS: Basophils % 0.1 % (0.0-0.8); Eosinophils # 0.1 10*3/uL (0.0-0.87); Eosinophils % 1.2 % (0.00-10.9); Hematocrit 37.6 VOL% (42.0-52.0); Hemoglobin 11.5 GM/DL (14.0-18.0); Immature Granulocytes % 0.7 %; Immature Granulocytes Absolute 0.06 #; Lymphocytes # 0.6 10*3/uL (1.4-4.0); Mean Corpuscular HGB Conc 30.6 GM/DL (32-36); Mean Corpuscular Volume 96.2 FL (87-102); Mean Platelet Volume 12.7 FL (9.6-12.0); Monocytes % 7.6 % (1.7-12.7); Neutrophils % 83.4 % (38.7-73.9); Platelet Count 97 T/CUMM (130-400); Red Blood Count 3.91 MC/CUMM (3.8-5.5); Red Cell Distribution Width 19.6 % (9.3-17.3); White Blood Count 8.3 T/CUMM (4-12)
[2019-08-23 05:09] LABS: Calcium 8.7 MG/DL (8.5-10.1); Osmolality,Calculated 281.7 MOS/KG (273-304)
[2019-08-23 05:47] LABS: Atypical Lymphocytes Few; Eosinophils 2 % (0-10); Hypochromasia 1+; Lymphocytes 9 % (20-55); Ovalocytes Slight; Segmented Neutrophils 85 % (50-85); Total Cells Counted 100
[2019-08-23 05:48] LABS: Macrocytosis 1+
[2019-08-23] MEDS: DOCUSATE SODIUM 100 MG CAPSULE PO SCH ×2 (08:47→21:10)
[2019-08-23] MEDS: THEOPHYLLINE ER (24 HR) 400 MG CAPSULE PO SCH (08:47)
[2019-08-23] MEDS: TORSEMIDE 20 MG TABLET PO SCH (08:47)
[2019-08-23] MEDS: MULTIVITAMIN (CENTRUM) TABLET PO SCH (08:47)
[2019-08-23] MEDS: carvediloL 6.25 MG TABLET PO SCH ×2 (08:47→21:10)
[2019-08-23] MEDS: FERROUS SULFATE 325 MG TABLET PO SCH ×2 (08:47→21:15)
[2019-08-23] MEDS: MAGNESIUM OXIDE 400 MG TABLET PO SCH (08:47)
[2019-08-23] MEDS: PANTOPRAZOLE 40 MG TABLET PO SCH (08:47)
[2019-08-23] MEDS: POTASSIUM CHLORIDE 10 MEQ TABLET PO SCH ×2 (08:47→21:10)
[2019-08-23] MEDS: CITALOPRAM 20 MG TABLET PO SCH ×2 (08:47→21:10)
[2019-08-23] MEDS: GABAPENTIN 400 MG CAPSULE PO SCH ×2 (08:47→21:10)
[2019-08-23] MEDS: THIAMINE 100 MG TABLET PO SCH (08:47)
[2019-08-23] MEDS: ASCORBIC ACID 500 MG TABLET PO SCH ×2 (08:47→21:10)
[2019-08-23] MEDS: hydrALAZINE 25 MG TABLET PO SCH ×2 (08:48→21:10)
[2019-08-23] MEDS: KETOROLAC 0.5% OPH SOLN 5 ML BOTTLE BOTH EYES SCH (08:59)
[2019-08-23] MEDS: ACETAMINOPHEN 325 MG TABLET PO PRN (08:59)
[2019-08-23] MEDS: prednisoLONE ACETATE 1% OPH SUSP 5 ML BOTTLE BOTH EYES SCH (08:59)
[2019-08-23] MEDS: OFLOXACIN 0.3% OPH SOLN 5 ML BOTTLE BOTH EYES SCH (08:59)
[2019-08-23] MEDS ORDERED: FUROSEMIDE 40 MG/4 ML VIAL IV ONE (12:48)
[2019-08-23] MEDS: RIVAROXABAN 20 MG TABLET PO SCH (16:59)
[2019-08-23 18:32] LABS: ABG Base Excess 10.4 MMOL/L (-2.5-2.5); ABG HCO3 33.8 MMOL/L (20-26); ABG Oxygen Saturation 79.8 % (95-100); ABG PH 7.394 (7.35-7.45); ABG PO2 42.5 MM HG (80-95); ABG TCO2 33.8 MMOL/L (23-27); Allen Test Positive
[2019-08-23] MEDS ORDERED: methylPREDNISolone SOD SUC 125 MG/2 ML VIAL ONE (18:32)
[2019-08-23] MEDS ORDERED: methylPREDNISolone SOD SUC 125 MG/2 ML VIAL IV ONE (18:32)
[2019-08-23 18:59] LABS: Calcium 8.4 MG/DL (8.5-10.1); Osmolality,Calculated 288.3 MOS/KG (273-304)
[2019-08-23 19:46] LABS: Apearance,Urine Slightly Hazy (Clear); Bacteria,Urine Occasional /HPF (Few); Bilirubin,Urine Negative (Negative); Blood, Urine Moderate mg/dL (Negative); Glucose,Urine (UA) Negative (Negative); Hyaline Casts,Urine 5 /LPF (0-3); Ketones,Urine Negative (Negative); Mucus,Urine Occasional /LPF (Occasional); Nitrite,Urine Negative (Negative); Protein,Urine Negative; RBC,Urine 29 /HPF (0-4); Squamous Epithelial Cell,Urine Occasional /HPF (0-10); Urine Color Yellow (Yellow); Urine Specific Gravity 1.009 (1.001-1.035); WBC,Urine 2 /HPF (0-6)
[2019-08-23] MEDS: ATORVASTATIN 10 MG TABLET PO SCH (21:10)
[2019-08-24] MEDS: ALBUTEROL/IPRATROPIUM 3 ML NEB RESP TX SCH ×5 (03:16→19:10)
[2019-08-24 06:07] LABS: Basophils % 0.1 % (0.0-0.8); Hematocrit 37.7 VOL% (42.0-52.0); Hemoglobin 11.5 GM/DL (14.0-18.0); Immature Granulocytes % 0.6 %; Immature Granulocytes Absolute 0.07 #; Lymphocytes # 0.2 10*3/uL (1.4-4.0); Lymphocytes % 1.9 % (21.2-54.2); Mean Corpuscular HGB Conc 30.5 GM/DL (32-36); Mean Corpuscular Volume 95.4 FL (87-102); Mean Platelet Volume 12.9 FL (9.6-12.0); Monocytes % 1.9 % (1.7-12.7); Neutrophils % 95.5 % (38.7-73.9); Platelet Count 98 T/CUMM (130-400); Red Blood Count 3.95 MC/CUMM (3.8-5.5); Red Cell Distribution Width 19.2 % (9.3-17.3); White Blood Count 11.1 T/CUMM (4-12)
[2019-08-24 06:33] LABS: Calcium 8.5 MG/DL (8.5-10.1); Osmolality,Calculated 292.8 MOS/KG (273-304)
[2019-08-24 06:44] LABS: Band Neutrophils 6 % (0-10); Eosinophils 1 % (0-10); Hypochromasia 1+; Lymphocytes 2 % (20-55); Segmented Neutrophils 89 % (50-85); Total Cells Counted 100
[2019-08-24 06:45] LABS: Anisocytosis 1+; Macrocytosis 1+; Platelet Estimate Decreased; Target Cells Slight
[2019-08-24] MEDS ORDERED: ALBUTEROL 2.5 MG/3 ML NEB RESP TX PRN (08:15)
[2019-08-24] MEDS: methylPREDNISolone SOD SUC 125 MG/2 ML VIAL IV SCH ×2 (08:53→20:14)
[2019-08-24] MEDS: MAGNESIUM OXIDE 400 MG TABLET PO SCH (08:54)
[2019-08-24] MEDS: TORSEMIDE 20 MG TABLET PO SCH (08:54)
[2019-08-24] MEDS: FERROUS SULFATE 325 MG TABLET PO SCH ×3 (08:54→20:15)
[2019-08-24] MEDS: hydrALAZINE 25 MG TABLET PO SCH ×2 (08:54→20:14)
[2019-08-24] MEDS: PANTOPRAZOLE 40 MG TABLET PO SCH (08:54)
[2019-08-24] MEDS: CITALOPRAM 20 MG TABLET PO SCH ×2 (08:54→20:14)
[2019-08-24] MEDS: carvediloL 6.25 MG TABLET PO SCH ×2 (08:54→20:14)
[2019-08-24] MEDS: DOCUSATE SODIUM 100 MG CAPSULE PO SCH ×2 (08:54→20:14)
[2019-08-24] MEDS: MULTIVITAMIN (CENTRUM) TABLET PO SCH (08:54)
[2019-08-24] MEDS: THIAMINE 100 MG TABLET PO SCH (08:54)
[2019-08-24] MEDS: GABAPENTIN 400 MG CAPSULE PO SCH ×2 (08:54→20:14)
[2019-08-24] MEDS: THEOPHYLLINE ER (24 HR) 400 MG CAPSULE PO SCH (08:54)
[2019-08-24] MEDS: POTASSIUM CHLORIDE 10 MEQ TABLET PO SCH ×2 (08:54→20:15)
[2019-08-24] MEDS: ASCORBIC ACID 500 MG TABLET PO SCH ×2 (08:55→20:15)
[2019-08-24] MEDS: RIVAROXABAN 20 MG TABLET PO SCH (16:47)
[2019-08-24] MEDS: ATORVASTATIN 10 MG TABLET PO SCH (20:14)
[2019-08-24] MEDS: ACETAMINOPHEN 325 MG TABLET PO PRN (21:15)
[2019-08-25] MEDS: ALBUTEROL/IPRATROPIUM 3 ML NEB RESP TX SCH ×6 (00:36→19:28)
[2019-08-25 04:54] LABS: Hematocrit 33.5 VOL% (42.0-52.0); Hemoglobin 10.3 GM/DL (14.0-18.0); Immature Granulocytes % 0.4 %; Immature Granulocytes Absolute 0.03 #; Lymphocytes # 0.3 10*3/uL (1.4-4.0); Lymphocytes % 3.4 % (21.2-54.2); Mean Corpuscular HGB Conc 30.7 GM/DL (32-36); Mean Corpuscular Volume 96.3 FL (87-102); Monocytes % 2.2 % (1.7-12.7); Red Blood Count 3.48 MC/CUMM (3.8-5.5); Red Cell Distribution Width 18.6 % (9.3-17.3); White Blood Count 7.3 T/CUMM (4-12)
[2019-08-25 04:56] LABS: Platelet Count 91 T/CUMM (130-400)
[2019-08-25 05:15] LABS: Calcium 8.6 MG/DL (8.5-10.1); Osmolality,Calculated 290.3 MOS/KG (273-304)
[2019-08-25 05:23] LABS: Band Neutrophils 5 % (0-10); Hypochromasia 1+; Lymphocytes 2 % (20-55); Macrocytosis 1+; Segmented Neutrophils 92 % (50-85); Total Cells Counted 100
[2019-08-25 05:24] LABS: Ovalocytes Slight
[2019-08-25 05:25] LABS: Platelet Estimate Decreased
[2019-08-25 05:26] LABS: Anisocytosis 1+
[2019-08-25] MEDS: methylPREDNISolone SOD SUC 125 MG/2 ML VIAL IV SCH ×2 (09:35→20:52)
[2019-08-25] MEDS: MAGNESIUM OXIDE 400 MG TABLET PO SCH (09:36)
[2019-08-25] MEDS: TORSEMIDE 20 MG TABLET PO SCH (09:36)
[2019-08-25] MEDS: ASCORBIC ACID 500 MG TABLET PO SCH ×2 (09:37→20:52)
[2019-08-25] MEDS: FERROUS SULFATE 325 MG TABLET PO SCH ×2 (09:37→20:52)
[2019-08-25] MEDS: MULTIVITAMIN (CENTRUM) TABLET PO SCH (09:37)
[2019-08-25] MEDS: DOCUSATE SODIUM 100 MG CAPSULE PO SCH ×2 (09:37→20:52)
[2019-08-25] MEDS: CITALOPRAM 20 MG TABLET PO SCH ×2 (09:37→20:52)
[2019-08-25] MEDS: THEOPHYLLINE ER (24 HR) 400 MG CAPSULE PO SCH (09:37)
[2019-08-25] MEDS: hydrALAZINE 25 MG TABLET PO SCH ×2 (09:38→20:52)
[2019-08-25] MEDS: THIAMINE 100 MG TABLET PO SCH (09:38)
[2019-08-25] MEDS: GABAPENTIN 400 MG CAPSULE PO SCH ×2 (09:38→20:52)
[2019-08-25] MEDS: PANTOPRAZOLE 40 MG TABLET PO SCH (09:38)
[2019-08-25] MEDS: carvediloL 6.25 MG TABLET PO SCH ×2 (09:38→20:52)
[2019-08-25] MEDS: POTASSIUM CHLORIDE 10 MEQ TABLET PO SCH ×2 (09:38→20:52)
[2019-08-25] MEDS ORDERED: SKIN HEALING OINT (AQUAPHOR) 50 GM TUBE TOP PRN (14:37)
[2019-08-25] MEDS: RIVAROXABAN 20 MG TABLET PO SCH (16:53)
[2019-08-25] MEDS: ACETAMINOPHEN 325 MG TABLET PO PRN (19:49)
[2019-08-25] MEDS: ATORVASTATIN 10 MG TABLET PO SCH (20:52)
[2019-08-26] MEDS: ALBUTEROL/IPRATROPIUM 3 ML NEB RESP TX SCH ×7 (00:48→22:40)
[2019-08-26] MEDS: predniSONE 20 MG TABLET PO SCH ×2 (07:07→21:25)
[2019-08-26] MEDS: THEOPHYLLINE ER (24 HR) 400 MG CAPSULE PO SCH (09:25)
[2019-08-26] MEDS: TORSEMIDE 20 MG TABLET PO SCH (09:25)
[2019-08-26] MEDS: MULTIVITAMIN (CENTRUM) TABLET PO SCH (09:25)
[2019-08-26] MEDS: MAGNESIUM OXIDE 400 MG TABLET PO SCH (09:25)
[2019-08-26] MEDS: CITALOPRAM 20 MG TABLET PO SCH ×2 (09:25→21:26)
[2019-08-26] MEDS: ASCORBIC ACID 500 MG TABLET PO SCH ×2 (09:25→21:26)
[2019-08-26] MEDS: carvediloL 6.25 MG TABLET PO SCH ×2 (09:26→21:26)
[2019-08-26] MEDS: hydrALAZINE 25 MG TABLET PO SCH ×2 (09:26→21:26)
[2019-08-26] MEDS: DOCUSATE SODIUM 100 MG CAPSULE PO SCH ×2 (09:26→21:26)
[2019-08-26] MEDS: PANTOPRAZOLE 40 MG TABLET PO SCH (09:26)
[2019-08-26] MEDS: POTASSIUM CHLORIDE 10 MEQ TABLET PO SCH ×2 (09:26→21:26)
[2019-08-26] MEDS: GABAPENTIN 400 MG CAPSULE PO SCH ×2 (09:26→21:26)
[2019-08-26] MEDS: THIAMINE 100 MG TABLET PO SCH (09:26)
[2019-08-26] MEDS: FERROUS SULFATE 325 MG TABLET PO SCH ×2 (09:27→21:27)
[2019-08-26] MEDS: RIVAROXABAN 20 MG TABLET PO SCH (16:36)
[2019-08-26] MEDS: ATORVASTATIN 10 MG TABLET PO SCH (21:26)
[2019-08-27] MEDS: ALBUTEROL/IPRATROPIUM 3 ML NEB RESP TX SCH ×6 (02:31→23:49)
[2019-08-27] MEDS: GABAPENTIN 400 MG CAPSULE PO SCH ×2 (09:29→21:58)
[2019-08-27] MEDS: MULTIVITAMIN (CENTRUM) TABLET PO SCH (09:29)
[2019-08-27] MEDS: POTASSIUM CHLORIDE 10 MEQ TABLET PO SCH ×2 (09:30→21:59)
[2019-08-27] MEDS: ASCORBIC ACID 500 MG TABLET PO SCH ×2 (09:30→21:58)
[2019-08-27] MEDS: MAGNESIUM OXIDE 400 MG TABLET PO SCH (09:30)
[2019-08-27] MEDS: predniSONE 20 MG TABLET PO SCH ×2 (09:30→21:58)
[2019-08-27] MEDS: CITALOPRAM 20 MG TABLET PO SCH ×2 (09:30→21:58)
[2019-08-27] MEDS: DOCUSATE SODIUM 100 MG CAPSULE PO SCH ×2 (09:30→21:58)
[2019-08-27] MEDS: THIAMINE 100 MG TABLET PO SCH (09:30)
[2019-08-27] MEDS: hydrALAZINE 25 MG TABLET PO SCH ×2 (09:31→21:58)
[2019-08-27] MEDS: THEOPHYLLINE ER (24 HR) 400 MG CAPSULE PO SCH (09:31)
[2019-08-27] MEDS: TORSEMIDE 20 MG TABLET PO SCH (09:31)
[2019-08-27] MEDS: PANTOPRAZOLE 40 MG TABLET PO SCH (09:31)
[2019-08-27] MEDS: carvediloL 6.25 MG TABLET PO SCH ×2 (09:31→21:59)
[2019-08-27] MEDS: FERROUS SULFATE 325 MG TABLET PO SCH ×2 (09:31→21:59)
[2019-08-27] MEDS: RIVAROXABAN 20 MG TABLET PO SCH (16:52)
[2019-08-27] MEDS: ATORVASTATIN 10 MG TABLET PO SCH (21:57)
[2019-08-28] MEDS: ALBUTEROL/IPRATROPIUM 3 ML NEB RESP TX SCH ×6 (02:39→23:55)
[2019-08-28] MEDS: ASCORBIC ACID 500 MG TABLET PO SCH ×2 (09:01→23:09)
[2019-08-28] MEDS: CITALOPRAM 20 MG TABLET PO SCH ×2 (09:01→23:07)
[2019-08-28] MEDS: hydrALAZINE 25 MG TABLET PO SCH ×2 (09:01→23:07)
[2019-08-28] MEDS: DOCUSATE SODIUM 100 MG CAPSULE PO SCH ×2 (09:02→23:07)
[2019-08-28] MEDS: carvediloL 6.25 MG TABLET PO SCH ×2 (09:02→23:07)
[2019-08-28] MEDS: FERROUS SULFATE 325 MG TABLET PO SCH ×3 (09:02→23:07)
[2019-08-28] MEDS: GABAPENTIN 400 MG CAPSULE PO SCH ×2 (09:02→23:08)
[2019-08-28] MEDS: predniSONE 20 MG TABLET PO SCH ×2 (09:02→23:09)
[2019-08-28] MEDS: THIAMINE 100 MG TABLET PO SCH (09:02)
[2019-08-28] MEDS: PANTOPRAZOLE 40 MG TABLET PO SCH (09:02)
[2019-08-28] MEDS: POTASSIUM CHLORIDE 10 MEQ TABLET PO SCH ×2 (09:02→23:08)
[2019-08-28] MEDS: MULTIVITAMIN (CENTRUM) TABLET PO SCH (09:02)
[2019-08-28] MEDS: TORSEMIDE 20 MG TABLET PO SCH (09:02)
[2019-08-28] MEDS: MAGNESIUM OXIDE 400 MG TABLET PO SCH (09:02)
[2019-08-28] MEDS: THEOPHYLLINE ER (24 HR) 400 MG CAPSULE PO SCH (09:02)
[2019-08-28] MEDS: RIVAROXABAN 20 MG TABLET PO SCH (16:36)
[2019-08-28] MEDS: ATORVASTATIN 10 MG TABLET PO SCH (23:08)
[2019-08-29] MEDS: ALBUTEROL/IPRATROPIUM 3 ML NEB RESP TX SCH ×6 (03:16→23:40)
[2019-08-29] MEDS: DOCUSATE SODIUM 100 MG CAPSULE PO SCH ×2 (09:01→22:27)
[2019-08-29] MEDS: MULTIVITAMIN (CENTRUM) TABLET PO SCH (09:01)
[2019-08-29] MEDS: MAGNESIUM OXIDE 400 MG TABLET PO SCH (09:01)
[2019-08-29] MEDS: CITALOPRAM 20 MG TABLET PO SCH ×2 (09:01→22:29)
[2019-08-29] MEDS: PANTOPRAZOLE 40 MG TABLET PO SCH (09:01)
[2019-08-29] MEDS: FERROUS SULFATE 325 MG TABLET PO SCH ×2 (09:01→22:33)
[2019-08-29] MEDS: THEOPHYLLINE ER (24 HR) 400 MG CAPSULE PO SCH (09:01)
[2019-08-29] MEDS: ASCORBIC ACID 500 MG TABLET PO SCH ×2 (09:01→22:32)
[2019-08-29] MEDS: TORSEMIDE 20 MG TABLET PO SCH (09:01)
[2019-08-29] MEDS: predniSONE 20 MG TABLET PO SCH ×2 (09:02→22:27)
[2019-08-29] MEDS: hydrALAZINE 25 MG TABLET PO SCH ×2 (09:02→22:29)
[2019-08-29] MEDS: POTASSIUM CHLORIDE 10 MEQ TABLET PO SCH ×2 (09:02→22:30)
[2019-08-29] MEDS: THIAMINE 100 MG TABLET PO SCH (09:02)
[2019-08-29] MEDS: GABAPENTIN 400 MG CAPSULE PO SCH ×2 (09:02→22:29)
[2019-08-29] MEDS: carvediloL 6.25 MG TABLET PO SCH ×2 (09:02→22:31)
[2019-08-29] MEDS: FUROSEMIDE 40 MG/4 ML VIAL IV SCH (16:07)
[2019-08-29] MEDS: RIVAROXABAN 20 MG TABLET PO SCH (16:07)
[2019-08-29] MEDS: ATORVASTATIN 10 MG TABLET PO SCH (22:31)
[2019-08-30] MEDS: ALBUTEROL/IPRATROPIUM 3 ML NEB RESP TX SCH ×6 (03:20→22:31)
[2019-08-30 04:44] LABS: Basophils % 0.1 % (0.0-0.8); Eosinophils % 0.3 % (0.00-10.9); Hematocrit 37.6 VOL% (42.0-52.0); Hemoglobin 11.3 GM/DL (14.0-18.0); Immature Granulocytes % 0.7 %; Immature Granulocytes Absolute 0.05 #; Lymphocytes # 0.3 10*3/uL (1.4-4.0); Lymphocytes % 3.3 % (21.2-54.2); Mean Corpuscular HGB Conc 30.1 GM/DL (32-36); Mean Corpuscular Volume 96.9 FL (87-102); Mean Platelet Volume 11.8 FL (9.6-12.0); Monocytes % 4.4 % (1.7-12.7); Neutrophils % 91.2 % (38.7-73.9); Platelet Count 201 T/CUMM (130-400); Red Blood Count 3.88 MC/CUMM (3.8-5.5); Red Cell Distribution Width 17.9 % (9.3-17.3); White Blood Count 7.7 T/CUMM (4-12)
[2019-08-30 05:03] LABS: Calcium 8.4 MG/DL (8.5-10.1); Osmolality,Calculated 289.4 MOS/KG (273-304)
[2019-08-30 05:42] LABS: Hypochromasia 1+; Lymphocytes 3 % (20-55); Metamyelocytes 1 %; Platelet Estimate Normal; Segmented Neutrophils 96 % (50-85); Total Cells Counted 100
[2019-08-30 05:43] LABS: Polychromasia Few
[2019-08-30] MEDS: POTASSIUM CHLORIDE 10 MEQ TABLET PO SCH ×2 (09:14→20:50)
[2019-08-30] MEDS: FUROSEMIDE 40 MG/4 ML VIAL IV SCH (09:14)
[2019-08-30] MEDS: FERROUS SULFATE 325 MG TABLET PO SCH ×3 (09:14→23:00)
[2019-08-30] MEDS: CITALOPRAM 20 MG TABLET PO SCH ×2 (09:15→20:51)
[2019-08-30] MEDS: MULTIVITAMIN (CENTRUM) TABLET PO SCH (09:15)
[2019-08-30] MEDS: ASCORBIC ACID 500 MG TABLET PO SCH ×2 (09:15→20:51)
[2019-08-30] MEDS: GABAPENTIN 400 MG CAPSULE PO SCH ×2 (09:15→20:51)
[2019-08-30] MEDS: THIAMINE 100 MG TABLET PO SCH (09:15)
[2019-08-30] MEDS: predniSONE 20 MG TABLET PO SCH ×2 (09:15→20:51)
[2019-08-30] MEDS: MAGNESIUM OXIDE 400 MG TABLET PO SCH (09:16)
[2019-08-30] MEDS: DOCUSATE SODIUM 100 MG CAPSULE PO SCH ×2 (09:16→20:50)
[2019-08-30] MEDS: hydrALAZINE 25 MG TABLET PO SCH ×2 (09:16→20:51)
[2019-08-30] MEDS: carvediloL 6.25 MG TABLET PO SCH ×2 (09:16→20:54)
[2019-08-30] MEDS: PANTOPRAZOLE 40 MG TABLET PO SCH (09:16)
[2019-08-30] MEDS: THEOPHYLLINE ER (24 HR) 400 MG CAPSULE PO SCH (09:43)
[2019-08-30] MEDS: RIVAROXABAN 20 MG TABLET PO SCH (17:46)
[2019-08-30] MEDS: ATORVASTATIN 10 MG TABLET PO SCH (20:51)
[2019-08-31] MEDS: ALBUTEROL/IPRATROPIUM 3 ML NEB RESP TX SCH ×6 (02:33→22:48)
[2019-08-31 06:25] LABS: Calcium 8.2 MG/DL (8.5-10.1); Osmolality,Calculated 285.5 MOS/KG (273-304)
[2019-08-31] MEDS: MULTIVITAMIN (CENTRUM) TABLET PO SCH (10:00)
[2019-08-31] MEDS: CITALOPRAM 20 MG TABLET PO SCH ×2 (10:00→21:57)
[2019-08-31] MEDS: FERROUS SULFATE 325 MG TABLET PO SCH ×2 (10:00→21:57)
[2019-08-31] MEDS: THIAMINE 100 MG TABLET PO SCH (10:00)
[2019-08-31] MEDS: FUROSEMIDE 40 MG/4 ML VIAL IV SCH ×2 (10:00→18:53)
[2019-08-31] MEDS: POTASSIUM CHLORIDE 10 MEQ TABLET PO SCH ×2 (10:01→21:56)
[2019-08-31] MEDS: carvediloL 6.25 MG TABLET PO SCH ×2 (10:01→21:57)
[2019-08-31] MEDS: ASCORBIC ACID 500 MG TABLET PO SCH ×2 (10:01→21:57)
[2019-08-31] MEDS: GABAPENTIN 400 MG CAPSULE PO SCH ×2 (10:01→21:56)
[2019-08-31] MEDS: MAGNESIUM OXIDE 400 MG TABLET PO SCH (10:01)
[2019-08-31] MEDS: predniSONE 20 MG TABLET PO SCH ×2 (10:01→21:56)
[2019-08-31] MEDS: hydrALAZINE 25 MG TABLET PO SCH ×2 (10:01→21:56)
[2019-08-31] MEDS: THEOPHYLLINE ER (24 HR) 400 MG CAPSULE PO SCH (10:01)
[2019-08-31] MEDS: DOCUSATE SODIUM 100 MG CAPSULE PO SCH ×2 (10:02→21:57)
[2019-08-31] MEDS: PANTOPRAZOLE 40 MG TABLET PO SCH (10:02)
[2019-08-31] MEDS: RIVAROXABAN 20 MG TABLET PO SCH (17:25)
[2019-08-31] MEDS: ATORVASTATIN 10 MG TABLET PO SCH (21:56)
[2019-09-01] MEDS: ALBUTEROL/IPRATROPIUM 3 ML NEB RESP TX SCH ×6 (03:00→23:54)
[2019-09-01] MEDS ORDERED: FUROSEMIDE 40 MG/4 ML VIAL ONE (08:58)
[2019-09-01] MEDS: DOCUSATE SODIUM 100 MG CAPSULE PO SCH ×2 (09:05→20:21)
[2019-09-01] MEDS: POTASSIUM CHLORIDE 10 MEQ TABLET PO SCH ×2 (09:05→20:21)
[2019-09-01] MEDS: GABAPENTIN 400 MG CAPSULE PO SCH ×2 (09:05→20:22)
[2019-09-01] MEDS: ASCORBIC ACID 500 MG TABLET PO SCH ×2 (09:05→20:21)
[2019-09-01] MEDS: THEOPHYLLINE ER (24 HR) 400 MG CAPSULE PO SCH (09:05)
[2019-09-01] MEDS: MULTIVITAMIN (CENTRUM) TABLET PO SCH (09:05)
[2019-09-01] MEDS: THIAMINE 100 MG TABLET PO SCH (09:05)
[2019-09-01] MEDS: FERROUS SULFATE 325 MG TABLET PO SCH ×2 (09:05→20:22)
[2019-09-01] MEDS: MAGNESIUM OXIDE 400 MG TABLET PO SCH (09:05)
[2019-09-01] MEDS: FUROSEMIDE 40 MG/4 ML VIAL IV SCH (09:05)
[2019-09-01] MEDS: CITALOPRAM 20 MG TABLET PO SCH ×2 (09:06→20:21)
[2019-09-01] MEDS: carvediloL 6.25 MG TABLET PO SCH ×2 (09:06→20:21)
[2019-09-01] MEDS: hydrALAZINE 25 MG TABLET PO SCH ×2 (09:06→20:21)
[2019-09-01] MEDS: PANTOPRAZOLE 40 MG TABLET PO SCH (09:06)
[2019-09-01] MEDS: predniSONE 20 MG TABLET PO SCH (09:06)
[2019-09-01] MEDS: FUROSEMIDE 40 MG TABLET PO SCH ×2 (14:45→16:45)
[2019-09-01] MEDS: RIVAROXABAN 20 MG TABLET PO SCH ×2 (14:45→16:45)
[2019-09-01] MEDS ORDERED: TUBERCULIN SKIN TEST 0.1 ML SYRINGE INTRADERM ONE (15:03)
[2019-09-01] MEDS: ATORVASTATIN 10 MG TABLET PO SCH (20:21)
[2019-09-02] MEDS: ALBUTEROL/IPRATROPIUM 3 ML NEB RESP TX SCH ×6 (03:26→20:03)
[2019-09-02] MEDS: CITALOPRAM 20 MG TABLET PO SCH ×2 (10:32→21:52)
[2019-09-02] MEDS: DOCUSATE SODIUM 100 MG CAPSULE PO SCH ×2 (10:32→21:52)
[2019-09-02] MEDS: FUROSEMIDE 40 MG TABLET PO SCH ×2 (10:32→16:58)
[2019-09-02] MEDS: carvediloL 6.25 MG TABLET PO SCH ×2 (10:32→21:52)
[2019-09-02] MEDS: MAGNESIUM OXIDE 400 MG TABLET PO SCH (10:33)
[2019-09-02] MEDS: predniSONE 20 MG TABLET PO SCH (10:33)
[2019-09-02] MEDS: ASCORBIC ACID 500 MG TABLET PO SCH ×2 (10:33→21:52)
[2019-09-02] MEDS: THEOPHYLLINE ER (24 HR) 400 MG CAPSULE PO SCH (10:33)
[2019-09-02] MEDS: FERROUS SULFATE 325 MG TABLET PO SCH ×2 (10:34→21:56)
[2019-09-02] MEDS: PANTOPRAZOLE 40 MG TABLET PO SCH (10:34)
[2019-09-02] MEDS: POTASSIUM CHLORIDE 10 MEQ TABLET PO SCH ×2 (10:34→21:52)
[2019-09-02] MEDS: MULTIVITAMIN (CENTRUM) TABLET PO SCH (10:34)
[2019-09-02] MEDS: hydrALAZINE 25 MG TABLET PO SCH ×2 (10:34→21:52)
[2019-09-02] MEDS: GABAPENTIN 400 MG CAPSULE PO SCH ×2 (10:34→21:52)
[2019-09-02] MEDS: THIAMINE 100 MG TABLET PO SCH (10:34)
[2019-09-02] MEDS: RIVAROXABAN 20 MG TABLET PO SCH (16:58)
[2019-09-02] MEDS: BUDESONIDE 0.5 MG/2 ML NEB RESP TX SCH (20:03)
[2019-09-02] MEDS: KETOROLAC 30 MG/1 ML VIAL IV PRN (21:26)
[2019-09-02] MEDS: ATORVASTATIN 10 MG TABLET PO SCH (21:52)
[2019-09-02] MEDS: traMADol 50 MG TABLET PO PRN (22:47)
[2019-09-03] MEDS: ALBUTEROL/IPRATROPIUM 3 ML NEB RESP TX SCH ×6 (00:09→20:49)
[2019-09-03 05:36] LABS: Basophils % 0.2 % (0.0-0.8); Eosinophils % 0.3 % (0.00-10.9); Hematocrit 39.2 VOL% (42.0-52.0); Hemoglobin 12.1 GM/DL (14.0-18.0); Immature Granulocytes % 0.9 %; Immature Granulocytes Absolute 0.11 #; Lymphocytes # 0.7 10*3/uL (1.4-4.0); Lymphocytes % 5.1 % (21.2-54.2); Mean Corpuscular HGB Conc 30.9 GM/DL (32-36); Mean Corpuscular Volume 96.3 FL (87-102); Mean Platelet Volume 11.3 FL (9.6-12.0); Monocytes % 9.3 % (1.7-12.7); Neutrophils % 84.2 % (38.7-73.9); Platelet Count 237 T/CUMM (130-400); Red Blood Count 4.07 MC/CUMM (3.8-5.5); Red Cell Distribution Width 18.8 % (9.3-17.3); White Blood Count 12.9 T/CUMM (4-12)
[2019-09-03 05:42] LABS: Calcium 7.9 MG/DL (8.5-10.1); Osmolality,Calculated 286.3 MOS/KG (273-304)
[2019-09-03] MEDS: BUDESONIDE 0.5 MG/2 ML NEB RESP TX SCH ×2 (07:15→20:49)
[2019-09-03] MEDS: DORNASE ALFA 2.5 MG/2.5 ML VIAL RESP TX SCH (07:24)
[2019-09-03] MEDS: CITALOPRAM 20 MG TABLET PO SCH ×2 (08:44→21:00)
[2019-09-03] MEDS: THEOPHYLLINE ER (24 HR) 400 MG CAPSULE PO SCH (08:45)
[2019-09-03] MEDS: predniSONE 20 MG TABLET PO SCH (08:45)
[2019-09-03] MEDS: MAGNESIUM OXIDE 400 MG TABLET PO SCH (08:45)
[2019-09-03] MEDS: GABAPENTIN 400 MG CAPSULE PO SCH ×2 (08:45→20:59)
[2019-09-03] MEDS: POTASSIUM CHLORIDE 10 MEQ TABLET PO SCH ×2 (08:45→20:59)
[2019-09-03] MEDS: hydrALAZINE 25 MG TABLET PO SCH ×2 (08:45→20:59)
[2019-09-03] MEDS: MULTIVITAMIN (CENTRUM) TABLET PO SCH (08:45)
[2019-09-03] MEDS: ASCORBIC ACID 500 MG TABLET PO SCH ×2 (08:46→20:59)
[2019-09-03] MEDS: FERROUS SULFATE 325 MG TABLET PO SCH ×2 (08:46→21:00)
[2019-09-03] MEDS: DOCUSATE SODIUM 100 MG CAPSULE PO SCH ×2 (08:46→21:00)
[2019-09-03] MEDS: THIAMINE 100 MG TABLET PO SCH (08:46)
[2019-09-03] MEDS: PANTOPRAZOLE 40 MG TABLET PO SCH (08:47)
[2019-09-03] MEDS: carvediloL 6.25 MG TABLET PO SCH ×2 (08:47→20:59)
[2019-09-03] MEDS: FUROSEMIDE 40 MG TABLET PO SCH ×2 (08:47→15:54)
[2019-09-03] MEDS: methylPREDNISolone SOD SUC 125 MG/2 ML VIAL IV SCH ×2 (17:06→22:02)
[2019-09-03] MEDS: RIVAROXABAN 20 MG TABLET PO SCH (17:07)
[2019-09-03] MEDS: traMADol 50 MG TABLET PO PRN (20:59)
[2019-09-03] MEDS: ATORVASTATIN 10 MG TABLET PO SCH (21:00)
[2019-09-03] MEDS: KETOROLAC 30 MG/1 ML VIAL IV PRN (21:00)
[2019-09-04] MEDS: ALBUTEROL/IPRATROPIUM 3 ML NEB RESP TX SCH ×7 (00:30→22:49)
[2019-09-04] MEDS: methylPREDNISolone SOD SUC 125 MG/2 ML VIAL IV SCH ×4 (05:00→23:36)
[2019-09-04] MEDS: BUDESONIDE 0.5 MG/2 ML NEB RESP TX SCH ×2 (07:02→19:21)
[2019-09-04] MEDS: DORNASE ALFA 2.5 MG/2.5 ML VIAL RESP TX SCH (07:15)
[2019-09-04] MEDS: THEOPHYLLINE ER (24 HR) 400 MG CAPSULE PO SCH (08:56)
[2019-09-04] MEDS: THIAMINE 100 MG TABLET PO SCH (08:56)
[2019-09-04] MEDS: DOCUSATE SODIUM 100 MG CAPSULE PO SCH ×2 (08:56→20:52)
[2019-09-04] MEDS: ASCORBIC ACID 500 MG TABLET PO SCH ×2 (08:56→20:51)
[2019-09-04] MEDS: POTASSIUM CHLORIDE 10 MEQ TABLET PO SCH ×2 (08:56→20:52)
[2019-09-04] MEDS: CITALOPRAM 20 MG TABLET PO SCH ×2 (08:56→20:52)
[2019-09-04] MEDS: MULTIVITAMIN (CENTRUM) TABLET PO SCH (08:56)
[2019-09-04] MEDS: MAGNESIUM OXIDE 400 MG TABLET PO SCH (08:56)
[2019-09-04] MEDS: carvediloL 6.25 MG TABLET PO SCH ×2 (08:57→20:52)
[2019-09-04] MEDS: hydrALAZINE 25 MG TABLET PO SCH ×2 (08:57→20:51)
[2019-09-04] MEDS: FUROSEMIDE 40 MG TABLET PO SCH ×2 (08:57→15:57)
[2019-09-04] MEDS: GABAPENTIN 400 MG CAPSULE PO SCH ×2 (08:57→20:51)
[2019-09-04] MEDS: PANTOPRAZOLE 40 MG TABLET PO SCH (08:57)
[2019-09-04] MEDS: FERROUS SULFATE 325 MG TABLET PO SCH ×2 (08:57→20:53)
[2019-09-04] MEDS: RIVAROXABAN 20 MG TABLET PO SCH (15:59)
[2019-09-04] MEDS: ATORVASTATIN 10 MG TABLET PO SCH (20:51)
[2019-09-04] MEDS: traMADol 50 MG TABLET PO PRN (20:52)
[2019-09-05] MEDS: ALBUTEROL/IPRATROPIUM 3 ML NEB RESP TX SCH ×6 (03:00→23:48)
[2019-09-05] MEDS: methylPREDNISolone SOD SUC 125 MG/2 ML VIAL IV SCH ×4 (06:00→22:25)
[2019-09-05] MEDS: BUDESONIDE 0.5 MG/2 ML NEB RESP TX SCH ×2 (07:28→19:12)
[2019-09-05] MEDS: DORNASE ALFA 2.5 MG/2.5 ML VIAL RESP TX SCH (07:28)
[2019-09-05] MEDS: THEOPHYLLINE ER (24 HR) 400 MG CAPSULE PO SCH (08:48)
[2019-09-05] MEDS: hydrALAZINE 25 MG TABLET PO SCH ×2 (08:48→20:36)
[2019-09-05] MEDS: MULTIVITAMIN (CENTRUM) TABLET PO SCH (08:48)
[2019-09-05] MEDS: MAGNESIUM OXIDE 400 MG TABLET PO SCH (08:48)
[2019-09-05] MEDS: GABAPENTIN 400 MG CAPSULE PO SCH ×2 (08:48→20:36)
[2019-09-05] MEDS: CITALOPRAM 20 MG TABLET PO SCH ×2 (08:48→20:36)
[2019-09-05] MEDS: ASCORBIC ACID 500 MG TABLET PO SCH ×2 (08:48→20:36)
[2019-09-05] MEDS: PANTOPRAZOLE 40 MG TABLET PO SCH (08:48)
[2019-09-05] MEDS: DOCUSATE SODIUM 100 MG CAPSULE PO SCH ×2 (08:48→20:36)
[2019-09-05] MEDS: THIAMINE 100 MG TABLET PO SCH (08:48)
[2019-09-05] MEDS: carvediloL 6.25 MG TABLET PO SCH ×2 (08:48→20:36)
[2019-09-05] MEDS: POTASSIUM CHLORIDE 10 MEQ TABLET PO SCH ×2 (08:49→20:36)
[2019-09-05] MEDS: FUROSEMIDE 40 MG TABLET PO SCH ×2 (08:49→16:43)
[2019-09-05] MEDS: FERROUS SULFATE 325 MG TABLET PO SCH ×2 (08:49→20:36)
[2019-09-05] MEDS: RIVAROXABAN 20 MG TABLET PO SCH (16:47)
[2019-09-05] MEDS: ATORVASTATIN 10 MG TABLET PO SCH (20:36)
[2019-09-06] MEDS: ALBUTEROL/IPRATROPIUM 3 ML NEB RESP TX SCH ×5 (03:34→19:38)
[2019-09-06] MEDS: methylPREDNISolone SOD SUC 125 MG/2 ML VIAL IV SCH ×4 (05:03→22:33)
[2019-09-06 05:55] LABS: Basophils % 0.1 % (0.0-0.8); Hematocrit 36.3 VOL% (42.0-52.0); Hemoglobin 11.1 GM/DL (14.0-18.0); Immature Granulocytes % 0.7 %; Lymphocytes # 0.2 10*3/uL (1.4-4.0); Lymphocytes % 1.2 % (21.2-54.2); Mean Corpuscular HGB Conc 30.6 GM/DL (32-36); Mean Corpuscular Volume 96.8 FL (87-102); Monocytes % 2.4 % (1.7-12.7); Neutrophils % 95.6 % (38.7-73.9); Platelet Count 214 T/CUMM (130-400); Red Blood Count 3.75 MC/CUMM (3.8-5.5); Red Cell Distribution Width 18.2 % (9.3-17.3); White Blood Count 13.8 T/CUMM (4-12)
[2019-09-06 06:18] LABS: Hypochromasia 1+; Ovalocytes Slight; Platelet Estimate Adequate; Segmented Neutrophils 98 % (50-85); Total Cells Counted 100
[2019-09-06 06:19] LABS: Calcium 8.1 MG/DL (8.5-10.1); Osmolality,Calculated 295.1 MOS/KG (273-304)
[2019-09-06] MEDS: BUDESONIDE 0.5 MG/2 ML NEB RESP TX SCH ×2 (08:26→19:38)
[2019-09-06] MEDS: DORNASE ALFA 2.5 MG/2.5 ML VIAL RESP TX SCH (08:26)
[2019-09-06] MEDS: CITALOPRAM 20 MG TABLET PO SCH ×2 (10:07→20:32)
[2019-09-06] MEDS: traMADol 50 MG TABLET PO PRN ×2 (10:07→20:31)
[2019-09-06] MEDS: hydrALAZINE 25 MG TABLET PO SCH ×2 (10:07→20:32)
[2019-09-06] MEDS: MAGNESIUM OXIDE 400 MG TABLET PO SCH (10:07)
[2019-09-06] MEDS: MULTIVITAMIN (CENTRUM) TABLET PO SCH (10:07)
[2019-09-06] MEDS: PANTOPRAZOLE 40 MG TABLET PO SCH (10:07)
[2019-09-06] MEDS: POTASSIUM CHLORIDE 10 MEQ TABLET PO SCH ×2 (10:08→20:32)
[2019-09-06] MEDS: THIAMINE 100 MG TABLET PO SCH (10:08)
[2019-09-06] MEDS: ASCORBIC ACID 500 MG TABLET PO SCH ×2 (10:08→20:32)
[2019-09-06] MEDS: THEOPHYLLINE ER (24 HR) 400 MG CAPSULE PO SCH (10:08)
[2019-09-06] MEDS: FUROSEMIDE 40 MG TABLET PO SCH ×2 (10:08→17:06)
[2019-09-06] MEDS: carvediloL 6.25 MG TABLET PO SCH ×2 (10:08→20:32)
[2019-09-06] MEDS: FERROUS SULFATE 325 MG TABLET PO SCH ×3 (10:08→20:33)
[2019-09-06] MEDS: GABAPENTIN 400 MG CAPSULE PO SCH ×2 (10:08→20:32)
[2019-09-06] MEDS: DOCUSATE SODIUM 100 MG CAPSULE PO SCH ×2 (10:12→20:32)
[2019-09-06] MEDS: RIVAROXABAN 20 MG TABLET PO SCH (17:06)
[2019-09-06] MEDS: ATORVASTATIN 10 MG TABLET PO SCH (20:32)
[2019-09-07] MEDS: ALBUTEROL/IPRATROPIUM 3 ML NEB RESP TX SCH ×7 (00:50→23:45)
[2019-09-07] MEDS: methylPREDNISolone SOD SUC 125 MG/2 ML VIAL IV SCH ×3 (04:43→16:50)
[2019-09-07 06:23] LABS: Basophils % 0.1 % (0.0-0.8); Hematocrit 38.6 VOL% (42.0-52.0); Hemoglobin 11.7 GM/DL (14.0-18.0); Immature Granulocytes Absolute 0.15 #; Lymphocytes # 0.2 10*3/uL (1.4-4.0); Lymphocytes % 1.2 % (21.2-54.2); Mean Corpuscular HGB Conc 30.3 GM/DL (32-36); Mean Platelet Volume 11.1 FL (9.6-12.0); Monocytes % 7.3 % (1.7-12.7); Neutrophils % 90.4 % (38.7-73.9); Platelet Count 205 T/CUMM (130-400); Red Blood Count 3.94 MC/CUMM (3.8-5.5); Red Cell Distribution Width 18.4 % (9.3-17.3); White Blood Count 15.6 T/CUMM (4-12)
[2019-09-07 06:43] LABS: Calcium 8.1 MG/DL (8.5-10.1); Osmolality,Calculated 298.8 MOS/KG (273-304)
[2019-09-07 06:57] LABS: Hypochromasia 1+; Lymphocytes 3 % (20-55); Platelet Estimate Adequate; Segmented Neutrophils 93 % (50-85); Total Cells Counted 100
[2019-09-07] MEDS: BUDESONIDE 0.5 MG/2 ML NEB RESP TX SCH ×2 (07:46→20:00)
[2019-09-07] MEDS: DORNASE ALFA 2.5 MG/2.5 ML VIAL RESP TX SCH (07:46)
[2019-09-07] MEDS: PANTOPRAZOLE 40 MG TABLET PO SCH (10:18)
[2019-09-07] MEDS: hydrALAZINE 25 MG TABLET PO SCH ×2 (10:18→21:33)
[2019-09-07] MEDS: ASCORBIC ACID 500 MG TABLET PO SCH ×2 (10:18→21:31)
[2019-09-07] MEDS: THEOPHYLLINE ER (24 HR) 400 MG CAPSULE PO SCH (10:18)
[2019-09-07] MEDS: THIAMINE 100 MG TABLET PO SCH (10:18)
[2019-09-07] MEDS: DOCUSATE SODIUM 100 MG CAPSULE PO SCH ×2 (10:19→21:32)
[2019-09-07] MEDS: FERROUS SULFATE 325 MG TABLET PO SCH ×3 (10:19→21:32)
[2019-09-07] MEDS: carvediloL 6.25 MG TABLET PO SCH ×2 (10:19→21:32)
[2019-09-07] MEDS: MAGNESIUM OXIDE 400 MG TABLET PO SCH (10:19)
[2019-09-07] MEDS: POTASSIUM CHLORIDE 10 MEQ TABLET PO SCH ×2 (10:19→21:31)
[2019-09-07] MEDS: FUROSEMIDE 40 MG TABLET PO SCH ×2 (10:19→16:50)
[2019-09-07] MEDS: CITALOPRAM 20 MG TABLET PO SCH ×2 (10:19→21:33)
[2019-09-07] MEDS: MULTIVITAMIN (CENTRUM) TABLET PO SCH (10:19)
[2019-09-07] MEDS: GABAPENTIN 400 MG CAPSULE PO SCH ×2 (10:19→21:32)
[2019-09-07] MEDS: RIVAROXABAN 20 MG TABLET PO SCH (16:50)
[2019-09-07] MEDS ORDERED: FUROSEMIDE 40 MG/4 ML VIAL IV ONE (16:52)
[2019-09-07] MEDS: methylPREDNISolone SOD SUC 125 MG/2 ML VIAL IM SCH (21:32)
[2019-09-07] MEDS: ATORVASTATIN 10 MG TABLET PO SCH (21:32)
[2019-09-08] MEDS: ALBUTEROL/IPRATROPIUM 3 ML NEB RESP TX SCH ×4 (03:45→14:20)
[2019-09-08] MEDS: DORNASE ALFA 2.5 MG/2.5 ML VIAL RESP TX SCH (07:40)
[2019-09-08] MEDS: BUDESONIDE 0.5 MG/2 ML NEB RESP TX SCH (07:40)
[2019-09-08] MEDS: ASCORBIC ACID 500 MG TABLET PO SCH ×2 (09:51→20:56)
[2019-09-08] MEDS: FUROSEMIDE 20 MG TABLET PO SCH ×2 (09:52→17:19)
[2019-09-08] MEDS: POTASSIUM CHLORIDE 10 MEQ TABLET PO SCH ×2 (09:52→20:57)
[2019-09-08] MEDS: FERROUS SULFATE 325 MG TABLET PO SCH ×3 (09:52→21:02)
[2019-09-08] MEDS: hydrALAZINE 25 MG TABLET PO SCH ×2 (09:52→20:56)
[2019-09-08] MEDS: DOCUSATE SODIUM 100 MG CAPSULE PO SCH ×2 (09:52→20:57)
[2019-09-08] MEDS: CITALOPRAM 20 MG TABLET PO SCH ×2 (09:52→20:56)
[2019-09-08] MEDS: MULTIVITAMIN (CENTRUM) TABLET PO SCH (09:52)
[2019-09-08] MEDS: GABAPENTIN 400 MG CAPSULE PO SCH ×2 (09:52→20:56)
[2019-09-08] MEDS: PANTOPRAZOLE 40 MG TABLET PO SCH (09:52)
[2019-09-08] MEDS: THIAMINE 100 MG TABLET PO SCH (09:53)
[2019-09-08] MEDS: MAGNESIUM OXIDE 400 MG TABLET PO SCH (09:53)
[2019-09-08] MEDS: THEOPHYLLINE ER (24 HR) 400 MG CAPSULE PO SCH (09:53)
[2019-09-08] MEDS: carvediloL 6.25 MG TABLET PO SCH ×2 (09:53→20:56)
[2019-09-08] MEDS: methylPREDNISolone SOD SUC 125 MG/2 ML VIAL IV SCH ×2 (10:28→21:03)
[2019-09-08] MEDS: methylPREDNISolone SOD SUC 125 MG/2 ML VIAL IM SCH (10:28)
[2019-09-08] MEDS: RIVAROXABAN 20 MG TABLET PO SCH (17:19)
[2019-09-08] MEDS: traMADol 50 MG TABLET PO PRN (20:56)
[2019-09-08] MEDS: ATORVASTATIN 10 MG TABLET PO SCH (20:57)
[2019-09-09] MEDS: ALBUTEROL/IPRATROPIUM 3 ML NEB RESP TX SCH ×8 (00:02→23:43)
[2019-09-09] MEDS: BUDESONIDE 0.5 MG/2 ML NEB RESP TX SCH ×3 (00:02→19:10)
[2019-09-09] MEDS: DORNASE ALFA 2.5 MG/2.5 ML VIAL RESP TX SCH (07:18)
[2019-09-09] MEDS: MAGNESIUM OXIDE 400 MG TABLET PO SCH (09:40)
[2019-09-09] MEDS: MULTIVITAMIN (CENTRUM) TABLET PO SCH (09:40)
[2019-09-09] MEDS: THEOPHYLLINE ER (24 HR) 400 MG CAPSULE PO SCH (09:40)
[2019-09-09] MEDS: FUROSEMIDE 20 MG TABLET PO SCH ×2 (09:41→17:57)
[2019-09-09] MEDS: CITALOPRAM 20 MG TABLET PO SCH ×2 (09:41→21:58)
[2019-09-09] MEDS: PANTOPRAZOLE 40 MG TABLET PO SCH (09:41)
[2019-09-09] MEDS: carvediloL 6.25 MG TABLET PO SCH ×2 (09:41→21:58)
[2019-09-09] MEDS: ASCORBIC ACID 500 MG TABLET PO SCH ×2 (09:41→21:58)
[2019-09-09] MEDS: THIAMINE 100 MG TABLET PO SCH (09:41)
[2019-09-09] MEDS: POTASSIUM CHLORIDE 10 MEQ TABLET PO SCH ×2 (09:41→21:58)
[2019-09-09] MEDS: GABAPENTIN 400 MG CAPSULE PO SCH ×2 (09:42→21:58)
[2019-09-09] MEDS: DOCUSATE SODIUM 100 MG CAPSULE PO SCH ×2 (09:42→21:58)
[2019-09-09] MEDS: traMADol 50 MG TABLET PO PRN (09:42)
[2019-09-09] MEDS: hydrALAZINE 25 MG TABLET PO SCH ×2 (09:42→21:58)
[2019-09-09] MEDS: methylPREDNISolone SOD SUC 125 MG/2 ML VIAL IV SCH (09:48)
[2019-09-09] MEDS: FERROUS SULFATE 325 MG TABLET PO SCH ×2 (09:49→21:59)
[2019-09-09] MEDS: traMADol 50 MG TABLET PO SCH ×2 (17:57→23:00)
[2019-09-09] MEDS: RIVAROXABAN 20 MG TABLET PO SCH (17:59)
[2019-09-09] MEDS: methylPREDNISolone SOD SUC 40 MG/1 ML VIAL IV SCH (21:57)
[2019-09-09] MEDS: ATORVASTATIN 10 MG TABLET PO SCH (21:58)
[2019-09-10] MEDS: ALBUTEROL/IPRATROPIUM 3 ML NEB RESP TX SCH ×6 (02:08→23:30)
[2019-09-10] MEDS: BUDESONIDE 0.5 MG/2 ML NEB RESP TX SCH ×2 (07:03→19:26)
[2019-09-10] MEDS: DORNASE ALFA 2.5 MG/2.5 ML VIAL RESP TX SCH (07:11)
[2019-09-10] MEDS: methylPREDNISolone SOD SUC 40 MG/1 ML VIAL IV SCH ×2 (09:11→21:56)
[2019-09-10] MEDS: MAGNESIUM OXIDE 400 MG TABLET PO SCH (09:12)
[2019-09-10] MEDS: MULTIVITAMIN (CENTRUM) TABLET PO SCH (09:12)
[2019-09-10] MEDS: THEOPHYLLINE ER (24 HR) 400 MG CAPSULE PO SCH (09:12)
[2019-09-10] MEDS: ASCORBIC ACID 500 MG TABLET PO SCH ×2 (09:13→21:56)
[2019-09-10] MEDS: THIAMINE 100 MG TABLET PO SCH (09:13)
[2019-09-10] MEDS: hydrALAZINE 25 MG TABLET PO SCH ×2 (09:13→21:56)
[2019-09-10] MEDS: CITALOPRAM 20 MG TABLET PO SCH ×2 (09:13→21:56)
[2019-09-10] MEDS: DOCUSATE SODIUM 100 MG CAPSULE PO SCH ×2 (09:13→21:56)
[2019-09-10] MEDS: traMADol 50 MG TABLET PO SCH ×3 (09:13→23:25)
[2019-09-10] MEDS: GABAPENTIN 400 MG CAPSULE PO SCH ×2 (09:13→21:56)
[2019-09-10] MEDS: carvediloL 6.25 MG TABLET PO SCH ×2 (09:13→21:56)
[2019-09-10] MEDS: PANTOPRAZOLE 40 MG TABLET PO SCH (09:13)
[2019-09-10] MEDS: FUROSEMIDE 20 MG TABLET PO SCH ×2 (09:14→18:02)
[2019-09-10] MEDS: POTASSIUM CHLORIDE 10 MEQ TABLET PO SCH ×2 (09:14→21:56)
[2019-09-10] MEDS: FERROUS SULFATE 325 MG TABLET PO SCH ×2 (09:14→21:57)
[2019-09-10] MEDS: RIVAROXABAN 20 MG TABLET PO SCH (18:02)
[2019-09-10] MEDS: ATORVASTATIN 10 MG TABLET PO SCH (21:56)
[2019-09-11] MEDS ORDERED: carvediloL 6.25 MG TABLET PO ONE (00:34)
[2019-09-11] MEDS: carvediloL 12.5 MG TABLET PO SCH ×3 (02:15→17:09)
[2019-09-11] MEDS: ALBUTEROL/IPRATROPIUM 3 ML NEB RESP TX SCH ×6 (04:00→23:15)
[2019-09-11] MEDS ORDERED: methylPREDNISolone SOD SUC 40 MG/1 ML VIAL IV SCH (06:00)
[2019-09-11 06:53] LABS: Basophils % 0.1 % (0.0-0.8); Hematocrit 38.9 VOL% (42.0-52.0); Hemoglobin 11.9 GM/DL (14.0-18.0); Immature Granulocytes % 1.2 %; Immature Granulocytes Absolute 0.17 #; Lymphocytes # 0.3 10*3/uL (1.4-4.0); Lymphocytes % 2.4 % (21.2-54.2); Mean Corpuscular HGB Conc 30.6 GM/DL (32-36); Mean Corpuscular Volume 97.7 FL (87-102); Mean Platelet Volume 10.7 FL (9.6-12.0); Monocytes % 2.5 % (1.7-12.7); Neutrophils % 93.8 % (38.7-73.9); Platelet Count 139 T/CUMM (130-400); Red Blood Count 3.98 MC/CUMM (3.8-5.5); Red Cell Distribution Width 17.9 % (9.3-17.3)
[2019-09-11 07:18] LABS: Hypochromasia Slight; Lymphocytes 3 % (20-55); Segmented Neutrophils 94 % (50-85); Total Cells Counted 100
[2019-09-11] MEDS: DORNASE ALFA 2.5 MG/2.5 ML VIAL RESP TX SCH (07:42)
[2019-09-11] MEDS: BUDESONIDE 0.5 MG/2 ML NEB RESP TX SCH ×2 (07:42→18:59)
[2019-09-11 07:52] LABS: Blood Urea Nitrogen 31 MG/DL (7-18); Calcium 7.6 MG/DL (8.5-10.1); Estimated Glom Filtration Rate 108 ML/MIN; Glucose 107 MG/DL (74-106); Osmolality,Calculated 289.1 MOS/KG (273-304)
[2019-09-11] MEDS: ASCORBIC ACID 500 MG TABLET PO SCH ×2 (08:42→21:39)
[2019-09-11] MEDS: THIAMINE 100 MG TABLET PO SCH (08:43)
[2019-09-11] MEDS: POTASSIUM CHLORIDE 10 MEQ TABLET PO SCH ×2 (08:43→21:40)
[2019-09-11] MEDS: PANTOPRAZOLE 40 MG TABLET PO SCH (08:43)
[2019-09-11] MEDS: MULTIVITAMIN (CENTRUM) TABLET PO SCH (08:43)
[2019-09-11] MEDS: FUROSEMIDE 20 MG TABLET PO SCH ×2 (08:43→17:09)
[2019-09-11] MEDS: GABAPENTIN 400 MG CAPSULE PO SCH ×2 (08:43→21:40)
[2019-09-11] MEDS: MAGNESIUM OXIDE 400 MG TABLET PO SCH (08:43)
[2019-09-11] MEDS: CITALOPRAM 20 MG TABLET PO SCH ×2 (08:43→21:38)
[2019-09-11] MEDS: FERROUS SULFATE 325 MG TABLET PO SCH ×2 (08:44→21:38)
[2019-09-11] MEDS: DOCUSATE SODIUM 100 MG CAPSULE PO SCH ×2 (08:44→21:40)
[2019-09-11] MEDS: traMADol 50 MG TABLET PO SCH ×3 (08:44→23:22)
[2019-09-11] MEDS: hydrALAZINE 25 MG TABLET PO SCH ×2 (08:44→21:38)
[2019-09-11] MEDS: predniSONE 20 MG TABLET PO SCH ×2 (09:23→21:39)
[2019-09-11] MEDS: THEOPHYLLINE ER (24 HR) 400 MG CAPSULE PO SCH (09:23)
[2019-09-11] MEDS: RIVAROXABAN 20 MG TABLET PO SCH (17:09)
[2019-09-11] MEDS: ATORVASTATIN 10 MG TABLET PO SCH (21:38)
[2019-09-12] MEDS: ALBUTEROL/IPRATROPIUM 3 ML NEB RESP TX SCH ×3 (03:23→11:10)
[2019-09-12 05:57] LABS: Basophils % 0.1 % (0.0-0.8); Hematocrit 39.7 VOL% (42.0-52.0); Immature Granulocytes % 1.4 %; Immature Granulocytes Absolute 0.24 #; Lymphocytes # 0.3 10*3/uL (1.4-4.0); Lymphocytes % 1.7 % (21.2-54.2); Mean Corpuscular HGB Conc 30.2 GM/DL (32-36); Mean Corpuscular Volume 98.5 FL (87-102); Mean Platelet Volume 10.5 FL (9.6-12.0); Monocytes % 4.2 % (1.7-12.7); Neutrophils % 92.6 % (38.7-73.9); Platelet Count 128 T/CUMM (130-400); Red Blood Count 4.03 MC/CUMM (3.8-5.5); Red Cell Distribution Width 17.7 % (9.3-17.3); White Blood Count 16.9 T/CUMM (4-12)
[2019-09-12 06:20] LABS: Hypochromasia 1+; Lymphocytes 4 % (20-55); Platelet Estimate Normal; Segmented Neutrophils 88 % (50-85); Total Cells Counted 100
[2019-09-12] MEDS: BUDESONIDE 0.5 MG/2 ML NEB RESP TX SCH (07:40)
[2019-09-12] MEDS: THIAMINE 100 MG TABLET PO SCH (09:25)
[2019-09-12] MEDS: MULTIVITAMIN (CENTRUM) TABLET PO SCH (09:25)
[2019-09-12] MEDS: MAGNESIUM OXIDE 400 MG TABLET PO SCH (09:25)
[2019-09-12] MEDS: CITALOPRAM 20 MG TABLET PO SCH (09:25)
[2019-09-12] MEDS: THEOPHYLLINE ER (24 HR) 400 MG CAPSULE PO SCH (09:25)
[2019-09-12] MEDS: GABAPENTIN 400 MG CAPSULE PO SCH (09:26)
[2019-09-12] MEDS: FUROSEMIDE 20 MG TABLET PO SCH (09:26)
[2019-09-12] MEDS: traMADol 50 MG TABLET PO SCH (09:26)
[2019-09-12] MEDS: POTASSIUM CHLORIDE 10 MEQ TABLET PO SCH (09:26)
[2019-09-12] MEDS: predniSONE 20 MG TABLET PO SCH (09:26)
[2019-09-12] MEDS: PANTOPRAZOLE 40 MG TABLET PO SCH (09:26)
[2019-09-12] MEDS: hydrALAZINE 25 MG TABLET PO SCH (09:26)
[2019-09-12] MEDS: DOCUSATE SODIUM 100 MG CAPSULE PO SCH (09:26)
[2019-09-12] MEDS: carvediloL 12.5 MG TABLET PO SCH (09:26)
[2019-09-12] MEDS: ASCORBIC ACID 500 MG TABLET PO SCH (09:27)
[2019-09-12] MEDS: FERROUS SULFATE 325 MG TABLET PO SCH (09:27)
[2019-09-12] MEDS: DORNASE ALFA 2.5 MG/2.5 ML VIAL RESP TX SCH (09:44)
[2019-09-12 11:59] VITALS: BP 123/64
== END 2019-09-12 12:50 | DRG 291 ==
LOC: EDUNIT# → EDBD → N.ED 04:46 → SUPCPDRO 09:54 → N.EDINP 09:54 → N.5E 10:13 → N.CC 08-23 18:30 → N.TELES 08-24 18:31
PROVIDERS: ADMIT Family Medicine; ATTEND Family Medicine